=== PATIENT | male | born 1950 | race Caucasian/White ===

== ENCOUNTER → 2017-05-02 | Day surgery (SDC) | payer MEDICARE ==
[~2017-05-02] MED LIST: Bupivacaine PF 0.5% 30 ML VIAL ONE; CEFAZOLIN 1 GM VIAL ONE; CEFAZOLIN/Water 2 GM/20 ML SYRINGE ONE; Dexamethasone 20 MG/5 ML VIAL ONE; Fentanyl 100 MCG/2 ML VIAL ONE; Ketorolac Tromethamine 30 MG/ML VIAL ONE; Lidocaine 1% PF 5 ML VIAL ONE; Metoclopramide HCl 10 MG/2 ML VIAL ONE; Ondansetron HCl/PF 4 MG/2 ML Vial ONE; Propofol 200 MG/20 ML VIAL ONE; Sterile Water 10 ML VIAL ONE; diphenhydrAMINE 50 MG/ML VIAL ONE; ePHEDrine/0.9% NaCl/PF SYRINGE 50 mg/10 ml ONE
--- NOTE | 2017-05-02 14:47 | HP ---
PREOPERATIVE DIAGNOSIS: Injuries of left distal tip thumb amputation, traumatic. HISTORY OF PRESENT ILLNESS: Mr. 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 The patient was consulted and was in [place] and was told to come in today to fix surgery for revision of his amputation and completion of closure. PAST MEDICAL HISTORY: Diabetes, hyperlipidemia, hypertension, depression. PAST SURGICAL HISTORY: Prostatectomy. ALLERGIES: No known drug allergies. MEDICATIONS: Include lisinopril, metformin, Prozac, Victoza and atorvastatin. SOCIAL HISTORY: Nonsmoker and nondrinker. 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 REVIEW OF SYSTEMS: Negative for 10-point exam except for above. PHYSICAL EXAMINATION: VITAL SIGNS: Afebrile, stable this morning. GENERAL: Alert and oriented male, in no acute distress, resting comfortably in bed. EXTREMITIES: Left upper extremity, he has got a laceration over his finger. Pictures of the wound show a distal tip avulsion with nailbed avulsed with exposed distal phalanx consistent with a traumatic amputation, also distal tip amputation of his left long finger. The patient is neurovascularly intact otherwise. Dressings in place. A 2+ radial pulse. Radiology of his fingers showed comminuted distal phalanx fracture of the thumb. No other fractures noted. IMPRESSION: Left thumb traumatic amputation. ASSESSMENT AND PLAN: Patient will be taken to the OR today. He was made n.p.o. overnight. The patient will be taken for revision of amputation and closure. I discussed the risks of potential nail deformities, discussed the risk of potential and risk of infection because of diabetes. The patient is under control. I discussed the risk of possible neuromas and need for possible revision of amputation. The patient understands the risks and benefits and elects to proceed. LAUREL
--- NOTE | 2017-05-02 21:43 | OP ---
DATE OF PROCEDURE: 05/02/2017 PREOPERATIVE DIAGNOSIS: Left thumb distal tip amputation, traumatic. POSTOPERATIVE DIAGNOSIS: Left thumb distal tip amputation, traumatic. PROCEDURE PERFORMED: Left revision traumatic amputation of thumb. STAFF: Kavon Andrea M.D. HIDE HOUSE SUPERVISOR: None. ANESTHESIA: [place], the patient received LMA. ESTIMATED BLOOD LOSS: 25 mL TOURNIQUET TIME: The patient had a finger tourniquet for approximately 10 minutes. ANTIBIOTICS: Ancef 2 gram. IMPLANTS: None. COMPLICATIONS: None. The patient also received 9 mL of Marcaine 0.25% plain digital block. HISTORY OF PRESENT ILLNESS: Mr. 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 The patient understood having a previous amputation of his long finger. The risks and benefits of the surgery to include pain, scar, bleeding, infection, nail deformity, requiring revision surgery, need for revision amputation, continued pain, hypersensitivity of neuroma, need for further shortening of the limb, decreased range of motion. The patient understood all these risks and benefits , he elected to proceed. PROCEDURE IN DETAIL: After timeout was performed, the patient's left upper extremity as the operative site, based on sight, consents and markings, the patient's left upper extremity was prepped and draped in sterile fashion with Betadine. After Betadine prep, we washed the fluid off to find the distal tip of the thumb. I did not feel that I had a sufficient flap to flip over. I also was concerned about the nail matrix, therefore, I cleaned underneath the nail bed, made a U-shaped incision to come down on the nail matrix, I could try to clean the entirety of the nail matrix also rongeured the bone back obliquely from dorsal to anterior and dorsal to volar to help with the flap. I was able to get mainly just some subcutaneous fat and skin to cover over after I washed a liter of fluid through to remove all the gross debris, took down my finger tourniquet. I then closed with 3-0 chromic #5 single stitches to oppose the soft tissues. We then injected 9 mL of Marcaine for digital block, washed and put on a soft tissue dressing. The patient will remove the dressing in 2-3 days. Follow up with me in a week. The patient was given narcotics for pain relief. The patient will not soak his wound, but just keep it clean. LAUREL
== END ==
LOC: SDC 08:03
PROVIDERS: ATTEND Orthopaedic Surgery
PROC: 0HBQXZZ Excision of Finger Nail, External Approach (ICD-10-PCS; principal; 2017-05-02)
PROC: 0PBS0ZZ Excision of Left Thumb Phalanx, Open Approach (ICD-10-PCS; 2017-05-02)
DX: S68.022A Partial traumatic metacarpophalangeal amputation of left thumb, initial encounter (principal); E11.9 Type 2 diabetes mellitus without complications; E78.5 Hyperlipidemia, unspecified; I10 Essential (primary) hypertension; F32.9 Major depressive disorder, single episode, unspecified; Z79.899 Other long term (current) drug therapy; Z90.79 Acquired absence of other genital organ(s)
CPT/HCPCS: 96374; A4216; J0690; J1100; J1200; J1885; J2001; J2405; J2704; J2765; J3010; S0020

== ENCOUNTER 2020-02-25 12:08 | Inpatient (IN) | payer MEDICARE, OTHER ==
[2020-02-25] MEDS ORDERED: Ondansetron PF 4 MG/2 ML Vial IVP PRN (12:41)
[2020-02-25] MEDS ORDERED: Dextrose 5% in Water 1,000 ML IV PRN (12:41)
[2020-02-25] MEDS ORDERED: Dextrose 50% Abboject 50 ML SYRINGE SLOW IVP PRN (12:41)
[2020-02-25] MEDS ORDERED: Rib Fracture Protocol PO SCH (12:45)
[2020-02-25 13:20] LABS: Troponin I Less than 0.010 ng/mL (< 0.028)
--- NOTE | 2020-02-25 14:08 | HP ---
REFERRED BY: Emergency Department. CRITICAL CARE/TRAUMA ATTENDING: Dr. Amandeep Stevenson. PRIMARY CARE PHYSICIAN: MT Bailey out of [place]. HISTORY OF PRESENT ILLNESS: Mr. Eaton is a 69-year-old male presented to our facility as a level 1 trauma activation, transferred from [facility]. At approximately 8 o'clock today, he was thrown from a horse, landing on his side. Possibly brief loss of consciousness, had pain to his back, his left side, left flank. He was found to have left rib fractures. Small left pneumothorax, possible T8 fracture and left adrenal gland stranding, concern for hematoma or small retroperitoneal bleed. The patient was hypotensive at the outlying facility with initial blood pressure of 76/42, heart rate was 63, saturating 95% on room air. Therefore, trauma activation was called. The patient was placed in [facility], given 1 unit of PRBCs and transferred here. Upon arrival, the patient was seen by Dr. Stevenson, ER, and myself. He is awake, alert, stable blood pressure. Complains of left-sided pain only. No respiratory distress. The patient states that he might have passed out. He has not been sick lately. No fever, no cough, no congestion. He did report some vomiting three days ago. He said this has been ongoing occasionally for many months and was not abnormal. He has no sick contacts. He has no abdominal pain. He has no current nausea or vomiting. Does have some back pain. He moves and feels all of his extremities. His GCS is 15. ABC's are intact. REVIEW OF SYSTEMS: Pertinent positive and negative per the HPI, otherwise regarded as negative. PAST MEDICAL HISTORY: Significant for prostate cancer, status post prostatectomy, as well as diabetes, possibly hypertension, and anxiety. PAST SURGICAL HISTORY: He has had his left thumb partially removed. He has also had a prostatectomy. MEDICATIONS: 1. Lisinopril 10 mg daily. 2. Metformin 1000 mg daily. 3. Prozac 10 mg daily. 4. Atorvastatin 20 mg daily. 5. Aspirin 81 mg daily. 6. Victoza 2-Bryce subcu. ALLERGIES: NO KNOWN DRUG ALLERGIES. SOCIAL HISTORY: The patient is , lives in [place]. He is a lifelong non smoker. Occasionally drinks very rarely. No illicit drug use. FAMILY HISTORY: Significant for heart disease on his father's side. PHYSICAL EXAMINATION: VITAL SIGNS: Today, blood pressure 117/68, heart rate is 74, regular, saturating 100% on room air, breathing 16 times per minute. Temperature is pending at our facility. GENERAL: A 69-year-old male, lying supine, slight distress secondary to pain. HEENT: Normocephalic, atraumatic. Trachea is midline. No JVD is appreciated. RESPIRATORY: Equal rise and fall. Does have some tenderness and a little crepitus to the left chest, but lung sounds are present throughout. CARDIOVASCULAR: Regular rate and rhythm. No murmurs are appreciated. No edema. Strong pulses. ABDOMEN: Soft and nontender. Pelvis is stable. MUSCULOSKELETAL: He moves all of his extremities well. He has strong pulses. NEUROLOGIC: Alert and oriented to person, place, time, and event. GCS is 15. BACK: The patient does have some tenderness to the thoracic spine on palpation without any step-offs. No erythema. SKIN: Warm and dry. PSYCH: Normal mood and affect. DIAGNOSTIC CRITERIA: Today, laboratory data from outside facility shows a white blood cell count of 11.6, platelets are 366. Hemoglobin and hematocrit 15.2 and 45.7 respectively. His INR is 1.0, PT is 12.8. Chemistry; sodium is 142, potassium 3.9, chloride is 103, CO2 is 26, BUN is 18, creatinine 1.48, glucose is 169, calcium 9.3, bilirubin is 0.5. AST and ALT 43 and 67 respectively. Alkaline phosphatase is 58. He had a CT of the head that was negative. CT C-spine, spondylolisthesis without acute abnormality. CT chest, abdomen, and pelvis showed left rib fractures 5 through 7, a small left apical pneumothorax, possibly loss of height of T8, unknown if this is acute. A left adrenal gland contusion versus stranding around the same with small possible retroperitoneal hematoma. Chest x-ray here demonstrates no significant pneumothorax on chest x-ray. His FAST exam at the bedside was negative, actually did have lung slide bilaterally even. An EKG taken at 12:23, rate of 76, sinus rhythm, normal axis, no ectopy, no ST elevation. QTc is 463. Intervals are within normal limits. No STEMI. The EKG was obtained. ASSESSMENT: 1. Left rib fractures 5 through 7. 2. Hypertension with unknown etiology. 3. Left apical pneumothorax. 4. T8 possible acute versus chronic abnormality. 5. Left adrenal gland injury versus a small retroperitoneal hematoma. MEDICAL DECISION MAKING: This 69-year-old male with no known cardiac disease. Did have hypotension post trauma. There is no clear evidence of acute blood loss anemia. His hemoglobin is 15. There is no outward bleeding. He has a small amount of blood, possibly in his abdomen, but nothing large. FAST exam is negative. Of note, the CT of the abdomen was actually an hour and a half after the injury. His lowest heart rate was 49 that was documented and he was hypotensive. There could be a vasovagal response versus cardiac or rhythmogenic. We will need further investigation. However, he is hemodynamically stable at this time. PLAN: We will admit the patient to the telemetry sanches. We will obtain an EKG. Troponin has been ordered now and we will trend this. Obtain cardiac echocardiogram. Obtain cortisol level. Check UA for renal injury/hematuria. Repeat chest x-ray in 6 hours for expansion of his pneumothorax. Rib fracture protocol. Repeat chest x-ray in the morning. Point of care glucose and sliding scale insulin. Repeat labs in the morning. Trauma bowel regimen. Diet will be a carb controlled diet. Access of peripheral IVs. Full code. Prophylaxis will be Pepcid and SCDs for tonight. We can actually encourage ambulation with assistance. We will monitor hemodynamics. Disposition is the telemetry sanches. I have updated the patient at the bedside and answered all questions. There is no family to update. This was coordinated with the Trauma team and Emergency Department team. This plan can be updated as needed. Job ID: [id number] [facility]
[2020-02-25] MEDS ORDERED: Morphine 2 MG/ML VIAL SLOW IVP PRN (14:17)
[2020-02-25] MEDS ORDERED: Cyclobenzaprine 10 MG TAB PO PRN (14:30)
[2020-02-25 14:43] VITALS: BMI 36.9
[2020-02-25] MEDS ORDERED: Gabapentin 300 MG CAP PO SCH (15:00)
[2020-02-25] MEDS ORDERED: Ibuprofen 600 MG TAB PO SCH (15:15)
--- NOTE | 2020-02-25 15:20 | RAD ---
EXAM: CHEST ONE VIEW: 02/25/20 HISTORY: Injury from trauma. Evidence for a small amount of subcutaneous emphysema. Evidence for minimally displaced left 7th rib fracture. There is a small amount of low attenuation density adjacent to the left mediastinal margin probably a very small amount of pneumothorax. There was a small left sided pneumothorax seen on prior chest CT scan. Right lung is clear. IMPRESSION: Left rib fracture with tiny subcutaneous emphysema. Probable very tiny left sided pneumothorax. Tala nued short term follow-up. POS: OFF
[2020-02-25] MEDS: Gabapentin 100 MG CAP PO SCH ×2 (15:33→20:54)
[2020-02-25] MEDS: traMADol HCl 50 MG TAB PO SCH (17:28)
[2020-02-25] MEDS: Acetaminophen 500 MG TAB PO SCH (17:28)
[2020-02-25 17:46] LABS: Bacteria/HPF None Seen HPF (None Seen); Bilirubin Negative (Negative); Clarity Clear (Clear); Glucose, Urine (Dipstick) Normal (Negative); Ketone, Urine Trace mg/dL (Negative); Leukocyte 25 Leu/uL (Negative); Mucous/LPF 1+ LPF (<2+); Nitrite Negative (Negative); Protein, Urine (Dipstick) 20 mg/dL (Neg-Trace); Specific Gravity, Urine 1.049 (1.002-1.036); Squamous Epithelial 0-3 HPF (0-3); Urobilinogen Normal mg/dL (Less than 2); pH, Urine 5.5 (5.0-9.0)
[2020-02-25 17:48] LABS: Blood, Urine Trace (Negative)
[2020-02-25] MEDS ORDERED: Acetaminophen 650 MG Suppository PR SCH (18:00)
[2020-02-25] MEDS ORDERED: traMADol HCl 50 MG TAB PO SCH (18:00)
[2020-02-25] MEDS ORDERED: Ketorolac Tromethamine 30 MG/ML VIAL IVP SCH ×2 (18:00)
[2020-02-25] MEDS ORDERED: Ibuprofen 800 MG TAB PO SCH (18:00)
--- NOTE | 2020-02-25 18:06 | RAD ---
XR Chest 1 View Portable History: Pneumothorax Comparison: Radiograph same day Findings: Trace anterior apical left pneumothorax with small volume left pleural fluid. Right lung is clear. Heart size is normal. RIb fractures are no further displaced. Impression: Faint left anterior pneumothorax with small left pleural effusion.
[2020-02-25 18:59] LABS: Troponin I Less than 0.010 ng/mL (< 0.028)
[2020-02-25] MEDS: Famotidine 20 MG TAB PO SCH (20:53)
[2020-02-25] MEDS: Ibuprofen 600 MG TAB PO SCH (20:54)
[2020-02-25] MEDS: HumaLOG 300 UNITS/3 ML VIAL SC PRN (20:58)
[2020-02-26] MEDS: traMADol HCl 50 MG TAB PO SCH ×4 (00:27→17:52)
[2020-02-26] MEDS: Acetaminophen 500 MG TAB PO SCH ×3 (00:27→10:59)
[2020-02-26 04:32] LABS: #Eosinphils 0.1 thou/uL (0.0-0.7); #Lymphocytes 2.1 thou/uL (1.20-3.40); #Monocytes 1.6 thou/uL (0.11-0.59); #Neutrophils 7.8 thou/uL (1.40-6.50); %Basophils 0.4 % (0.0-1.0); %Lymphocytes 17.7 % (21.0-51.0); %Monocytes 13.7 % (0.0-10.0); %Neutrophils 67.3 % (42.0-75.0); Hemoglobin 14.1 g/dL (14.0-18.0); Mean Corpuscular HGB CONC 32.2 g/dL (32.0-36.0); Mean Corpuscular Hemoglobin 29.1 pg (27.0-31.0); Mean Corpuscular Volume 90.3 fL (78.0-98.0); Mean Platelet Volume 8.3 fL (7.4-10.4); Platelet Count 248 thou/uL (130-400); RBC Distribution Width 15.1 % (11.5-14.5); Red Blood Cell (RBC) Count 4.86 mill/uL (4.70-6.10); White Blood Cell (WBC) Count 11.6 thou/uL (4.8-10.8)
[2020-02-26 04:51] LABS: Anion Gap 14 mmol/L (10-20); BUN (Urea Nitrogen) 16 mg/dL (8.4-25.7); Calc. Creatinine Clearance 106 mL/min (70-130); Calcium 8.4 mg/dL (7.8-10.44); Carbon Dioxide 22 mmol/L (23-31); Chloride 105 mmol/L (98-107); Estimated GFR-MDRD 68; Glucose 127 mg/dL (80-115); Potassium 4.3 mmol/L (3.5-5.1); Sodium 137 mmol/L (136-145)
[2020-02-26] MEDS: Ibuprofen 600 MG TAB PO SCH ×3 (05:18→21:10)
--- NOTE | 2020-02-26 08:05 | RAD ---
CHEST 1 VIEW PORTABLE: HISTORY: Pneumothorax followup. COMPARISON: 02/25/2020. FINDINGS: Possible tiny medial left apical pneumothorax. Left costophrenic angle blunting. Evidence for left rib fractures. Less inspiration than on the prior study. IMPRESSION: Probable very small pneumothorax involving the medial left apex. Less inspiration than on the prior study. Minimal blunting of the left costophrenic angle and evidence for left rib fractures. POS: OFF
[2020-02-26] MEDS: Famotidine 20 MG TAB PO SCH ×2 (08:48→20:48)
[2020-02-26] MEDS: Gabapentin 100 MG CAP PO SCH ×3 (08:48→20:48)
[2020-02-26] MEDS: HumaLOG 300 UNITS/3 ML VIAL SC PRN ×2 (11:03→21:11)
[2020-02-26 12:23] LABS: SARS-CoV-2 MS2 Positive; SARS-CoV-2 N Gene Negative; SARS-CoV-2 S Gene Negative; SARS-CoV-2 by NAA Not Detected (NotDetected); SARS-CoV-2 orf1ab Negative
[2020-02-26] MEDS: Cyclobenzaprine 10 MG TAB PO PRN (12:32)
[2020-02-26] MEDS: HYDROcodone/Acetaminophen 10/325 mg Tablet PO SCH ×3 (14:20→20:47)
--- NOTE | 2020-02-26 14:58 | PRG ---
DATE OF SERVICE: 02/26/2020 SUBJECTIVE: Mr. Eaton is a 69-year-old male admitted as a level 1 trauma activation yesterday with mild hypotension after being thrown from a horse, multiple left- sided rib fractures, small pneumothorax, concern for small retroperitoneal hematoma. The patient has remained hemodynamically stable. Pain was controlled overnight. Repeat chest x-ray shows very small pneumothorax, not clinically significant at this time. The patient has tolerated diet, spontaneously voided, has not had a bowel movement. On sitting up to the edge of bed, the patient did start having some right-sided hip pain. Did report some back pain. We reviewed CT findings. He does have the T8 possible compression fracture. Therefore, I have discussed the case with Neurosurgery, who is going to see the patient, and we will place in a TLSO for the time being. The patient's hemoglobin has remained stable. I reviewed the telemetry overnight. The patient remained in sinus rhythm under 100 beats per minute. No ectopy was reported by the final operations technician and on my review. Troponins were negative and EF of 50% to 55% with possibly diastolic dysfunction. OBJECTIVE: VITAL SIGNS: Temperature is 97.5, blood pressure is 155/68, heart rate is 78, respiratory rate is 14, saturating 94% on room air. GENERAL: A 69-year-old male, sitting up, in no acute distress, aside from mild traumatic pain. HEENT: Normocephalic and atraumatic. Trachea is midline. RESPIRATORY: Equal rise and fall. Bilateral breath sounds are clear. Does have some subcu air noted on the left chest. CARDIOVASCULAR: Regular rate and rhythm. No murmurs appreciated. No edema. Strong pulses. ABDOMEN: Soft and nontender. Pelvis is stable. MUSCULOSKELETAL: He is able to move all of his extremities. No gross deficits. SKIN: Warm and dry. NEUROLOGIC: Alert and oriented in person, place, time and event. GCS is 15. DIAGNOSTIC DATA: Today, sodium is 135, potassium is 4.3, chloride is 105, BUN is 16, creatinine is 1.08, glucose is 127, calcium is 8.4. His troponin was negative x2 yesterday. White blood cell count is 11.6, platelets are 248, hemoglobin and hematocrit 14.1 and 43.8 respectively. Urine demonstrated it was clear, yellow with trace blood, ketones, some red blood cell, white blood cell, and small leukocyte esterase. There is yellow urine today. Repeat chest x-ray today shows these left-sided rib fractures and small apical pneumothorax. Small left hemothorax. An echocardiogram from yesterday shows an EF of 50% to 55%, possibly diastolic dysfunction. ASSESSMENT AND PLAN: 1. Left rib fractures 5 through 7. 2. Left apical pneumothorax, improving. 3. Hypotension seems to be resolved. 4. T8 possibly acute compression fracture. TLSO brace ordered and neurosurgery consult. 5. Acute traumatic pain. 6. Left hemopneumothorax. PLAN: 1. We will transfer the patient out of the telemetry unit to the surgery sanches. 2. Obtain dedicated films of the right hip. 3. Neurosurgery consult and TLSO brace ordered. 4. Repeat chest x-ray tomorrow. 5. Pain control ongoing. 6. Encourage IS and ambulation. 7. We will continue to monitor blood pressure. 8. Follow with Neurosurgery as needed. 9. Continue all other supportive care. I have updated the patient and patient's at the bedside, and I have discussed the case with the bedside RN. Job ID: [id number] [facility]
[2020-02-26] MEDS ORDERED: Prevnar 13-Val Conj/PF 0.5 ML SYRINGE IM ONE (15:15)
--- NOTE | 2020-02-26 16:08 | RAD ---
XR Hip Rt 2-3 View History: Trauma. Hip pain Comparison: CT examination prior day Findings: Mild widening of the pubic symphysis. Obturator rings. Intact. The right femoral head and n charis are intact. Impression: Mild widening pubic symphysis not well seen on the recent CT examination although there w as extensive motion artifact. If clinically warranted, MRI of the pelvis may be beneficial.
--- NOTE | 2020-02-26 18:41 | CON ---
DATE OF CONSULTATION: 02/26/2020 HISTORY OF PRESENT ILLNESS: The patient is a 69-year-old male, who was admitted by the Trauma Service on 02/25/2020, after being bucked off a horse. He was found to have multiple left-sided rib fractures as well as suffered a period of hypotension, a small pneumothorax. He has been monitored on the telemetry unit and had improved with regard to his hypotension. He also had questionable T8 compression fracture. When he began to mobilize, being complaining of some increased back pain. Neurosurgery was consulted for evaluation of this compression deformity. I have reviewed the CT. There is a mild superior endplate fracture along the anterior aspect of the T8, but there is no significant retropulsion or evidence of unstable spinal injury. I visited with the patient at the bedside. He is awake, alert, in no acute distress. He is moving all extremities without difficulty. He has no focal neurologic deficits. He is diffusely tender over the mid and low back, but he is not complaining of any particular point tenderness over the mid thoracic spine. PAST MEDICAL HISTORY: Prostate cancer, diabetes, hypertension, anxiety. PAST SURGICAL HISTORY: Prostatectomy, left thumb surgery. FAMILY HISTORY: Noncontributory. SOCIAL HISTORY: He lives at home. He does not smoke, drink, or use any drugs. REVIEW OF SYSTEMS: Per HPI. PHYSICAL EXAMINATION: VITAL SIGNS: Stable. HEENT: Head, normocephalic and atraumatic. Eyes, PERRLA. Extraocular movements intact. ENT; pink, intact, and moist. NECK: Nontender. Free active range of motion. No meningismus or nuchal rigidity. CARDIAC: Regular rate and rhythm. PULMONARY: He has some tenderness diffusely along the left side of the chest where he has multiple rib fractures. He has symmetric chest expansion. Does not appear to have any dyspnea at this time. MUSCULOSKELETAL: No obvious deformities. Free active range of motion of all extremities. No focal motor weakness. NEUROLOGIC: A and O x4. GCS 15. No focal neurologic deficits. BACK: There is some tenderness diffusely along the thoracic and lumbar spine. No areas of point tenderness. ASSESSMENT AND PLAN: This is a 69-year-old male with multiple left-sided rib fractures and a questionable T8 compression deformity after he was bucked off a horse. The patient has had some increased back pain as he began to mobilize. This seems lower along the lumbar spine in the right hip, but he is somewhat mildly tender over the thoracic spine as well. The T8 deformity is age indeterminate, but considering his acute event, we will treat this with TLSO bracing. I have ordered the brace, which can be worn for out of bed activities. He can take the brace off in bed and for showering. I will plan to arrange followup with repeat set of imaging in approximately 4 weeks. Job ID: [id number]
[2020-02-26] MEDS: Enoxaparin Sodium 30 MG/0.3 ML SYRINGE SC SCH (20:46)
[2020-02-27] MEDS: HYDROcodone/Acetaminophen 10/325 mg Tablet PO SCH ×2 (00:17→04:35)
[2020-02-27] MEDS: traMADol HCl 50 MG TAB PO SCH ×4 (00:17→18:32)
[2020-02-27] MEDS: Cyclobenzaprine 10 MG TAB PO PRN ×3 (05:03→22:42)
[2020-02-27] MEDS: Ibuprofen 600 MG TAB PO SCH ×3 (05:04→22:42)
[2020-02-27] MEDS: HumaLOG 300 UNITS/3 ML VIAL SC PRN ×2 (06:50→18:33)
--- NOTE | 2020-02-27 08:17 | RAD ---
Exam: Chest one view HISTORY:Pneumothorax Comparison: 02/26/2020 FINDINGS: Cardiac silhouette: Normal Aorta: Unremarkable Pulmonary vessels: Normal Costophrenic angles: Blunting of the left costophrenic angle likely due to small effusion. LUNGS: Parenchymal changes in the left lung base. Pneumothorax: Questionable tiny apical left-sided pneumothorax Osseous abnormalities: Left rib fractures. IMPRESSION: 1. Questionable tiny apical left-sided pneumothorax 2. Pleural and parenchymal changes in the left lung base.
[2020-02-27] MEDS ORDERED: Lorazepam 2 MG/ML VIAL ONE (10:11)
[2020-02-27] MEDS ORDERED: Lorazepam 2 MG/ML VIAL SLOW IVP SCH (10:30)
--- NOTE | 2020-02-27 10:57 | MRI ---
Exam: Thoracic spine MRI without contrast HISTORY: Pain. FINDINGS: Patient refused axial T1-weighted images Appropriate T1 marrow signal intensity of the thoracic vertebra. Thoracic spine vertebral body height s are maintained from the T1-T7 and from T9 through T12. Mild chronic superior endplate deformity at T8. No significant STIR hyperintensity suggest edema or acute fracture Appropriate signal intensity visualized paraspinal muscles. Consolidation in both lung parenchymal echoes and atelectasis, aspiration or pneumonia Visualized solid organs of appropriate signal intensity The thoracic cord has a normal size and signal intensity. No cord expansion, cord malacia or abnormal signal intensity of the thoracic cord T6-T7: Minimal left paracentral disc herniation. No significant central canal stenosis T7-T8 central disc herniation which flattens the thecal sac. Mild deformity the left hemicord. No cor d signal abnormality T10-T11: No posterior disc abnormality. However, there is ligamentum flavum thickening and facet hype rtrophy with mild central canal stenosis. The neural foramina are patent throughout the thoracic spine IMPRESSION: 1. No significant central canal stenosis or significant neural foraminal narrowing 2. Remote mild superior endplate injury at T8.
[2020-02-27] MEDS: Enoxaparin Sodium 30 MG/0.3 ML SYRINGE SC SCH ×2 (11:16→20:09)
[2020-02-27] MEDS: Gabapentin 300 MG CAP PO SCH ×3 (11:17→20:09)
[2020-02-27] MEDS: Famotidine 20 MG TAB PO SCH ×2 (12:13→20:09)
--- NOTE | 2020-02-27 16:00 | PRG ---
DATE OF SERVICE: 02/27/2020 SUBJECTIVE: Mr. Eaton is a 69-year-old male, postinjury day #2, status post fall from a horse. The patient was seen in the surgery sanches now. He has remained hemodynamically stable overnight. He did have difficulty with pain on ambulation, therefore an x-ray showed possible widening of the pubic symphysis. MRI of the pelvis was ordered. A thoracic spine MRI was added to the same. The patient underwent the MRI of the spine today; however, was too uncomfortable lay still for the pelvis. He was seen at the bedside. The patient is somewhat sedated as being given 1 mg Ativan for his MRI today, states the pain is still fairly significant when he stands up. Discussed with PT, he could barely stand and walk. He was in agony both of his left thorax and his right hip. Chest x-ray still demonstrates a very small apical left pneumothorax. OBJECTIVE: VITAL SIGNS: Today, temperature is 97.7, blood pressure 119/75, heart rate is 96, breathing 16 times per minute, and 96% on 2 L of oxygen nasal cannula. GENERAL: A 69-year-old male, lying in bed, in slight distress secondary to pain. HEENT: Normocephalic and atraumatic. Trachea is midline. RESPIRATORY: Equal rise and fall. Bilateral breath sounds clear to auscultation. Does have some tenderness to the left chest. ABDOMEN: Soft and nontender. No masses, guarding, or rigidity. CARDIOVASCULAR: Regular rate and rhythm. PELVIS: Stable. Does complain of some pain to the right hip. MUSCULOSKELETAL: The patient moves all of his extremities well. He has slight tenderness to the palpation of the back; however, no step-offs are noted. NEUROLOGIC: Alert and oriented to person, place, time, and event. PSYCHIATRIC: Normal mood and affect. DIAGNOSTIC STUDIES: Today: Glucose is 148. MRI of the thoracic spine shows no canal narrowing, does have a remote mild superior endplate injury at T8. Chest x-ray today shows the left pneumothorax, multiple rib fractures, some atelectasis is appreciated. ASSESSMENT AND PLAN: 1. Left rib fractures 5 through 7. 2. Small left apical pneumothorax, that is improving. 3. Hypertension, has been completely resolved. 4. T8 endplate injury remote by MRI today. 5. Acute traumatic pain. 6. Possibly widening of the pubic symphysis, unable to complete MRI. PLAN: 1. We will continue pain regimen. 2. Change tramadol to 100 mg q.6 from 50. 3. Increase gabapentin to 300 mg t.i.d. 4. Try to stay away from [place]. 5. TLSO brace per Neurosurgery as needed for pain only. 6. PT had discussed with them. Try to ambulate the patient, very difficult with time. 7. Encouraged and discussed IS with the patient and the patient's family at the bedside. 8. Continue rib fracture protocol. 9. Continue bowel regimen. 10. Will repeat labs in the morning. 11. Continue all other supportive care. The patient was seen by Dr. Edgardo Hobbs. I updated the patient and the patient's family at the bedside and answered all questions. Job ID: [id number]
[2020-02-27] MEDS: cloNIDine 0.1 MG TAB PO SCH (20:07)
[2020-02-28] MEDS: traMADol HCl 50 MG TAB PO SCH ×5 (00:24→23:11)
--- NOTE | 2020-02-28 01:42 | PRG ---
DATE OF SERVICE: 02/27/2020 SUBJECTIVE: The patient was seen this evening during rounds. He was sitting up in bed, resting comfortably and asleep with no signs of acute distress. Nursing reported the patient ambulated with a walker in the hallway this evening. Reports pain is better controlled. OBJECTIVE: VITAL SIGNS: Temperature 98.7, pulse 100, respirations 18, oxygen saturation 92% on room air, and blood pressure 1107/66. GENERAL: Well-appearing elderly male, sitting up in bed, resting comfortably and asleep with no signs of acute distress. PULMONARY: Equal chest rise and fall. No signs of acute respiratory distress. ASSESSMENT: 1. Status post ejected from horse. 2. Left ribs 5 through 7 fractures. 3. Left pneumothorax. 4. T8 endplate injury. 5. Abdominal free fluid. 6. Acute kidney injury, resolved. 7. History of prostate cancer, status post prostatectomy. 8. Diabetes. 9. Hypertension. 10. Anxiety. PLAN: 1. Continue current diet and pain regimen. 2. Continue physical and occupational therapy. 3. The patient is improving with Pain Management and is ready for discharge at this time to acute rehab facility. Job ID: [id number]
[2020-02-28 05:04] LABS: #Basophils 0.1 thou/uL (0.0-0.2); #Eosinphils 0.3 thou/uL (0.0-0.7); #Lymphocytes 1.6 thou/uL (1.20-3.40); #Monocytes 1.3 thou/uL (0.11-0.59); #Neutrophils 6.6 thou/uL (1.40-6.50); %Basophils 0.5 % (0.0-1.0); %Eosinophils 3.1 % (0.0-10.0); %Neutrophils 67.4 % (42.0-75.0); Hemoglobin 13.7 g/dL (14.0-18.0); Mean Corpuscular HGB CONC 32.1 g/dL (32.0-36.0); Mean Corpuscular Volume 90.5 fL (78.0-98.0); Mean Platelet Volume 8.2 fL (7.4-10.4); Platelet Count 248 thou/uL (130-400); RBC Distribution Width 14.9 % (11.5-14.5); Red Blood Cell (RBC) Count 4.74 mill/uL (4.70-6.10); White Blood Cell (WBC) Count 9.8 thou/uL (4.8-10.8)
[2020-02-28 05:29] LABS: Anion Gap 13 mmol/L (10-20); BUN (Urea Nitrogen) 14 mg/dL (8.4-25.7); Calc. Creatinine Clearance 111 mL/min (70-130); Calcium 8.4 mg/dL (7.8-10.44); Carbon Dioxide 26 mmol/L (23-31); Chloride 102 mmol/L (98-107); Estimated GFR-MDRD 71; Glucose 150 mg/dL (80-115); Potassium 4.3 mmol/L (3.5-5.1); Sodium 137 mmol/L (136-145)
[2020-02-28] MEDS: HumaLOG 300 UNITS/3 ML VIAL SC PRN ×3 (05:33→17:12)
[2020-02-28] MEDS: Ibuprofen 600 MG TAB PO SCH ×3 (05:33→21:16)
[2020-02-28] MEDS: cloNIDine 0.1 MG TAB PO SCH ×2 (08:25→21:16)
[2020-02-28] MEDS: Gabapentin 300 MG CAP PO SCH (08:29)
[2020-02-28] MEDS: Cyclobenzaprine 10 MG TAB PO PRN ×2 (08:29→18:29)
[2020-02-28] MEDS: Famotidine 20 MG TAB PO SCH ×2 (08:30→21:16)
[2020-02-28] MEDS: Enoxaparin Sodium 30 MG/0.3 ML SYRINGE SC SCH ×2 (08:30→21:17)
[2020-02-28] MEDS: Senokot S 8.6-50 MG TAB PO SCH ×2 (09:19→21:16)
[2020-02-28] MEDS: Polyethylene Glycol 3350 17 GM Packet PO SCH (09:19)
[2020-02-28] MEDS ORDERED: oxyCODONE 5 MG TAB PO PRN (11:21)
[2020-02-28] MEDS: Acetaminophen 500 MG TAB PO SCH ×3 (12:12→23:11)
[2020-02-28] MEDS: Pregabalin 50 MG CAP PO SCH ×2 (14:25→21:17)
--- NOTE | 2020-02-28 17:22 | PRG ---
DATE OF SERVICE: SUBJECTIVE: The patient was seen during morning rounds with Dr. Hobbs. The patient was awake, alert, sitting up on the side of the bed in moderate distress due to pain. The patient reports pain only 3/10 whenever he is not deep breathing or coughing, but pain is 10/10 when he does cough. The patient had no overnight events. The patient is requiring currently 1 L nasal cannula oxygen. Off oxygen, the patient's sats anywhere from 90% to 93% after deep breathing and using his incentive spirometer. The patient is tolerating diabetic diet at this time. OBJECTIVE: VITAL SIGNS: Temperature 98.5, pulse 92, respirations 16, SpO2 of 94% on 1 L nasal cannula, blood pressure 139/85. GENERAL: Elderly male sitting up on the side of the bed, moderate distress due to pain. Well-fitting TLSO brace in place. RESPIRATORY: Good inspiratory and expiratory effort. Breath sounds are clear. No wheezing, rales, or rhonchi. CARDIAC: Regular rate, regular rhythm. ABDOMEN: Soft, nontender, nondistended. EXTREMITIES: Moves all extremities. No focal deficits. NEUROLOGIC: GCS 15. LABORATORY DATA: WBC 9.8, RBC 4.74, hemoglobin 13.7, hematocrit 42.8, platelets 248. Glucose 150, sodium 137, potassium 4.8, BUN 14, creatinine 1.04, estimated GFR 71, calcium 8.4, phosphorus 3.0, magnesium 2.0. DIAGNOSTICS: There is no new diagnostics to review today. ASSESSMENT: 1. Status post ejected from horse. 2. Left rib fractures 5 through 7. 3. Left pneumothorax, stable. 4. T8 endplate injury. 5. Acute kidney injury, resolved. 6. History of prostate cancer, status post prostatectomy; diabetes mellitus; hypertension; and anxiety. PLAN: Continue current diet and supportive care. We will add scheduled Tylenol and p.r.n. oxycodone to optimize pain control. We will also switch the patient to Lyrica instead of gabapentin. Encourage aggressive pulmonary toilet with the use of incentive spirometer every hour while awake x10 and deep coughing frequently. Increase activity. The patient has been instructed to ambulate frequently. Increase physical and occupational therapy. We will place the patient on CPAP 10 cm of water at night. A rehab screen has been placed. The patient was seen by Dr. Hobbs. The plan was discussed with the patient and family who agree. Job ID: [id number]
--- NOTE | 2020-02-29 00:54 | PRG ---
DATE OF SERVICE: 02/28/2020 SUBJECTIVE: The patient was seen this evening during rounds. He was sitting up in bed, getting ready to go to sleep. He reported pain is about the same as yesterday. He has been moving around with physical therapy. He is getting ready to be put on CPAP for the evening and he said he is willing to give it a trial, though he did not appear happy with that recommendation. OBJECTIVE: VITAL SIGNS: Temperature 98.7 pulse 91, respirations 18, oxygen saturation 95% on room air, blood pressure 127/81. GENERAL: Well-appearing elderly male, lying in bed with no signs of acute distress. PULMONARY: Equal chest rise and fall. No signs of acute respiratory distress. ASSESSMENT: 1. Status post ejected from horse. 2. Left-sided ribs 5 through 7 fracture. 3. Left-sided pneumothorax. 4. T8 endplate injury. 5. Free abdominal fluid. 6. Acute kidney injury, resolved. 7. History of prostate cancer, status post prostatectomy; diabetes; hypertension; and anxiety. PLAN: Continue current diet and pain regimen. Continue physical and occupational therapy. Continue TLSO brace. CPAP overnight. The patient is pending discharge to acute rehab facility. He is ready for discharge at this time. Job ID: [id number]
[2020-02-29 05:14] LABS: #Basophils 0.1 thou/uL (0.0-0.2); #Eosinphils 0.4 thou/uL (0.0-0.7); #Monocytes 1.3 thou/uL (0.11-0.59); #Neutrophils 5.2 thou/uL (1.40-6.50); %Basophils 0.6 % (0.0-1.0); %Eosinophils 4.9 % (0.0-10.0); %Monocytes 14.1 % (0.0-10.0); %Neutrophils 58.4 % (42.0-75.0); Hemoglobin 14.2 g/dL (14.0-18.0); Mean Corpuscular HGB CONC 30.9 g/dL (32.0-36.0); Mean Corpuscular Hemoglobin 28.2 pg (27.0-31.0); Mean Corpuscular Volume 91.3 fL (78.0-98.0); Mean Platelet Volume 8.5 fL (7.4-10.4); Platelet Count 276 thou/uL (130-400); Red Blood Cell (RBC) Count 5.02 mill/uL (4.70-6.10); White Blood Cell (WBC) Count 8.9 thou/uL (4.8-10.8)
[2020-02-29] MEDS: Acetaminophen 500 MG TAB PO SCH ×4 (05:24→23:39)
[2020-02-29] MEDS: Ibuprofen 600 MG TAB PO SCH ×3 (05:24→20:58)
[2020-02-29] MEDS: traMADol HCl 50 MG TAB PO SCH ×4 (05:24→23:39)
[2020-02-29 05:45] LABS: Anion Gap 15 mmol/L (10-20); BUN (Urea Nitrogen) 18 mg/dL (8.4-25.7); Calc. Creatinine Clearance 103 mL/min (70-130); Calcium 8.8 mg/dL (7.8-10.44); Carbon Dioxide 25 mmol/L (23-31); Chloride 100 mmol/L (98-107); Estimated GFR-MDRD 67; Glucose 128 mg/dL (80-115); Magnesium 2.1 mg/dL (1.6-2.6); Phosphorus 3.9 mg/dL (2.3-4.7); Sodium 135 mmol/L (136-145)
[2020-02-29] MEDS: Pregabalin 50 MG CAP PO SCH ×3 (09:39→20:57)
[2020-02-29] MEDS: Senokot S 8.6-50 MG TAB PO SCH ×2 (09:39→20:57)
[2020-02-29] MEDS: Polyethylene Glycol 3350 17 GM Packet PO SCH (09:39)
[2020-02-29] MEDS: cloNIDine 0.1 MG TAB PO SCH ×2 (09:40→20:56)
[2020-02-29] MEDS: Famotidine 20 MG TAB PO SCH ×2 (09:40→20:56)
[2020-02-29] MEDS: Cyclobenzaprine 10 MG TAB PO PRN (09:40)
[2020-02-29] MEDS: Enoxaparin Sodium 30 MG/0.3 ML SYRINGE SC SCH ×2 (09:41→20:56)
--- NOTE | 2020-02-29 18:59 | PRG ---
DATE OF SERVICE: 02/29/2020 SUBJECTIVE: The patient was seen during morning rounds with Dr. Hobbs. The patient was awake, alert, sitting up in the chair, in no acute distress. The patient is in a well-fitting TLSO brace. The patient did not have any overnight events. The patient did not want to use the CPAP last night. States that he just did not feel comfortable with it. The patient still has not had a bowel movement. The patient and family are refusing the patient having home health care, PT, or going to rehab. The patient continues to have increased pain with deep breath and coughing. The patient's SpO2 is in the low 90s on room air. The patient is only able to pull 1250 on his incentive spirometer. The patient is not able to cough deeply at this time. The patient has been instructed that he needs to ambulate frequently and cough and use his incentive spirometer at least every hour while awake. The patient was also instructed on the importance of doing this aggressive pulmonary toilet as if not, he will develop pneumonia. Family was at bedside and verbalized understanding. The patient does report feeling better than he did yesterday after making some medication changes. OBJECTIVE: VITAL SIGNS: Temperature 98.1, pulse 81, respirations 16, SpO2 of 95% on room air, blood pressure 126/85. GENERAL: Elderly male, awake, alert, sitting up in chair. RESPIRATORY: Good inspiratory and expiratory effort, bilateral breath sounds clear. CARDIAC: Regular rate and regular rhythm. EXTREMITIES: Moves all extremities, no focal deficits. NEUROLOGIC: GCS 15. LABORATORY DATA: WBC 8.9, RBC 5.02, hemoglobin 14.2, hematocrit 45.8, platelets 276. Sodium 135, potassium 5, chloride 100, BUN 18, creatinine 1.1, estimated GFR 67, glucose 128, calcium 8.8, phosphorus 3.9, magnesium 2.1. DIAGNOSTICS: No new diagnostics to review today. ASSESSMENT: 1. Status post ejected from horse. 2. Left rib fractures, 5 through 7. 3. Left pneumothorax, stable. 4. T8 endplate injury, treated with TLSO brace. 5. Acute kidney injury, resolved. 6. History of prostate cancer, status post prostatectomy, diabetes myelitis, hypertension, and anxiety. PLAN: Continue current diet and pain regimen. Continue aggressive pulmonary toilet with the use of incentive spirometer every hour while awake. Continue to have the patient move and ambulate frequently. The patient's incentive spirometer goal is to reach 2000 or before being discharged home. Also, if the patient's pain is better controlled tomorrow, he may be discharged home with family. The plan was discussed with the patient and family who agrees. Again, the patient was examined by Dr. Hobbs during morning rounds. Please add above. We will add lactulose to the patient's bowel regimen as he has not had a bowel movement. Job ID: [id number]
--- NOTE | 2020-03-01 00:34 | PRG ---
DATE OF SERVICE: 02/29/2020 SUBJECTIVE: The patient was seen this evening during rounds. He was sitting up in bed, completing a breathing treatment. He reported his pain is better controlled. He is tired as he worked a lot with Physical Therapy. He completed one big lap around the floor, had received lactulose today and had a bowel movement. Continues to work with incentive spirometer. OBJECTIVE: VITAL SIGNS: Temperature 97.9, pulse 90, respirations 16, oxygen saturation 92% on room air, and blood pressure 130/82. GENERAL: Well-appearing elderly male, sitting up in bed with no signs of acute distress. PULMONARY: Equal chest rise and fall. No signs of acute respiratory distress. ASSESSMENT: 1. Status post ejected from horse. 2. Left-sided ribs 5 through 7 fracture. 3. Left pneumothorax. 4. T8 endplate injury. 5. Abdominal free fluid. 6. Acute kidney injury, resolved. 7. History of prostate cancer status post prostatectomy, diabetes, hypertension, and anxiety. PLAN: Continue current diet and pain regimen. Continue physical and occupational therapy. Continue CPAP at night with breaks as needed. The patient is ready for discharge to rehab at this time. Job ID: [id number]
[2020-03-01] MEDS: Acetaminophen 500 MG TAB PO SCH ×2 (05:43→12:27)
[2020-03-01] MEDS: traMADol HCl 50 MG TAB PO SCH ×2 (05:43→12:27)
[2020-03-01] MEDS: Ibuprofen 600 MG TAB PO SCH ×2 (05:43→14:08)
[2020-03-01] MEDS: HumaLOG 300 UNITS/3 ML VIAL SC PRN ×3 (05:47→16:13)
[2020-03-01 07:14] LABS: Anion Gap 14 mmol/L (10-20); BUN (Urea Nitrogen) 17 mg/dL (8.4-25.7); Calc. Creatinine Clearance 113 mL/min (70-130); Calcium 8.5 mg/dL (7.8-10.44); Carbon Dioxide 26 mmol/L (23-31); Chloride 101 mmol/L (98-107); Estimated GFR-MDRD 74; Glucose 144 mg/dL (80-115); Phosphorus 3.9 mg/dL (2.3-4.7); Potassium 4.7 mmol/L (3.5-5.1); Sodium 136 mmol/L (136-145)
[2020-03-01] MEDS ORDERED: Bisacodyl 10 MG SUPP PR SCH ×2 (09:00→15:00)
[2020-03-01] MEDS ORDERED: FLUoxetine HCl 20 MG CAP PO SCH (09:00)
[2020-03-01] MEDS: Polyethylene Glycol 3350 17 GM Packet PO SCH (09:33)
[2020-03-01] MEDS: Pregabalin 50 MG CAP PO SCH ×2 (09:33→14:09)
[2020-03-01] MEDS: Senokot S 8.6-50 MG TAB PO SCH (09:33)
[2020-03-01] MEDS: Cyclobenzaprine 10 MG TAB PO PRN (09:33)
[2020-03-01] MEDS: Famotidine 20 MG TAB PO SCH (09:33)
[2020-03-01] MEDS: Enoxaparin Sodium 30 MG/0.3 ML SYRINGE SC SCH (09:34)
[2020-03-01] MEDS: cloNIDine 0.1 MG TAB PO SCH (09:34)
[2020-03-01 16:22] VITALS: BP 116/74; TEMP 98
--- NOTE | 2020-03-03 14:20 | EKG ---
Test Reason : Blood Pressure : / mmHG Vent. Rate : 076 BPM Atrial Rate : 076 BPM P-R Int : 180 ms QRS Dur : 098 ms QT Int : 412 ms P-R-T Axes : 059 041 060 degrees QTc Int : 463 ms Poor data quality, interpretation may be adversely affected Normal sinus rhythm Normal ECG Confirmed by SYLVIA CASAS MD ([id number] on 03/03/2020 2:20:23 PM Referred By: DOROTA Confirmed By:SYLVIA CASAS MD
== END 2020-03-01 16:30 | DRG 964 ==
LOC: ERS 12:08 → 2NO 12:49 → SURG A 02-26 17:10
PROVIDERS: ADMIT Surgery; ATTEND Surgery
PROC: 5A09457 Assistance with Respiratory Ventilation, 24-96 Consecutive Hours, Continuous Positive Airway Pressure (ICD-10-PCS; principal; 2020-02-28)
DX: S27.2XXA Traumatic hemopneumothorax, initial encounter (principal); S22.069A Unspecified fracture of T7-T8 vertebra, initial encounter for closed fracture; S36.892A Contusion of other intra-abdominal organs, initial encounter; S22.42XA Multiple fractures of ribs, left side, initial encounter for closed fracture; N17.9 Acute kidney failure, unspecified; Z20.828 Contact with and (suspected) exposure to other viral communicable diseases; E78.5 Hyperlipidemia, unspecified; E11.9 Type 2 diabetes mellitus without complications; F41.9 Anxiety disorder, unspecified; F32.9 Major depressive disorder, single episode, unspecified; I10 Essential (primary) hypertension; Z79.899 Other long term (current) drug therapy; Z79.84 Long term (current) use of oral hypoglycemic drugs; Z79.82 Long term (current) use of aspirin; V80.919A Animal-rider injured in unspecified transport accident, initial encounter; Z85.46 Personal history of malignant neoplasm of prostate
CPT/HCPCS: 36415; 36416; 71045; 72146; 80048; 81001; 82533; 83735; 84100; 84484; 85025; 86850; 86900; 86901; 87635; 93005; 93306; 94640; G0390; J1650; J2060; J2270; J7620; U0003

== ENCOUNTER 2021-06-30 05:51 | Inpatient (IN) | payer MEDICARE ==
[2021-06-30] MEDS ORDERED: REMDESIVIR 200 MG in Sodium Chloride 0.9% 250 ML 210 ML IV SCH (15:00)
[2021-06-30] MEDS ORDERED: Cholecalciferol 1,000 UNITS (25 MCG) TAB PO SCH (15:00)
[2021-06-30] MEDS ORDERED: Dextrose 50% Abboject 50 ML SYRINGE SLOW IVP PRN (15:03)
[2021-06-30] MEDS ORDERED: Dextrose 5% in Water 1,000 ML IV PRN (15:03)
[2021-06-30] MEDS: Guaifenesin DM 100-10/5 ML UDCUP PO SCH ×2 (16:10→21:20)
[2021-06-30] MEDS ORDERED: Famotidine 20 MG TAB PO SCH (21:00)
[2021-06-30] MEDS: Acetaminophen 325 MG TAB PO PRN (21:20)
[2021-06-30] MEDS: Enoxaparin Sodium 40 MG/0.4 ML SYRINGE SC SCH (21:21)
[2021-07-01] MEDS: Melatonin 3 MG TAB PO PRN ×2 (01:53→21:00)
[2021-07-01] MEDS: Acetaminophen 325 MG TAB PO PRN ×2 (01:53→20:59)
[2021-07-01 03:40] LABS: ALT (SGPT) 82 U/L (8-55); AST (SGOT) 71 U/L (5-34); Albumin 3.4 g/dL (3.4-4.8); Alkaline Phosphatase 52 U/L (40-110); Anion Gap 12 mmol/L (10-20); BUN (Urea Nitrogen) 18 mg/dL (8.4-25.7); Bilirubin, Total 0.5 mg/dL (0.2-1.2); CRP (Inflammatory) 2.24 mg/dL (= or < 0.5); Calc. Creatinine Clearance 95 mL/min (70-130); Calcium 8.4 mg/dL (7.8-10.44); Carbon Dioxide 24 mmol/L (23-31); Chloride 102 mmol/L (98-107); Globulin 2.9 g/dL (2.4-3.5); Glucose 116 mg/dL (80-115); Potassium 4.1 mmol/L (3.5-5.1); Protein, Total 6.3 g/dL (5.8-8.1); Sodium 134 mmol/L (136-145)
[2021-07-01] MEDS: Insulin Regular 300 UNITS/3 ML VIAL SC PRN ×3 (05:44→17:06)
[2021-07-01] MEDS: Guaifenesin DM 100-10/5 ML UDCUP PO SCH ×4 (08:59→20:58)
[2021-07-01] MEDS: Zinc Sulfate 220 MG CAP PO SCH (09:00)
[2021-07-01] MEDS: Ascorbic Acid 500 mg Chewable Tablet PO SCH (09:01)
[2021-07-01] MEDS: Enoxaparin Sodium 40 MG/0.4 ML SYRINGE SC SCH ×2 (09:01→20:59)
[2021-07-01] MEDS: Cholecalciferol 1,000 UNITS (25 MCG) TAB PO SCH (09:01)
[2021-07-01] MEDS: Dexamethasone 10 MG/ML VIAL SLOW IVP SCH (09:02)
[2021-07-01] MEDS: Ondansetron PF 4 MG/2 ML Vial IVP PRN (09:11)
[2021-07-01] MEDS ORDERED: FLU VACC QS2021-22(65YR UP)/PF 240 MCG/0.7 ML SYRINGE IM ONE (13:30)
[2021-07-01] MEDS ORDERED: cefTRIAXone\\ROCEPHIN 1 GM in Sodium Chloride 0.9% 100 ML IVPB SCH (14:30)
[2021-07-01] MEDS ORDERED: REMDESIVIR 100 MG in Sodium Chloride 0.9% 250 ML 230 ML IV SCH (15:00)
[2021-07-01] MEDS ORDERED: Cyclobenzaprine 10 MG TAB PO PRN (15:33)
[2021-07-01] MEDS ORDERED: Polyethylene Glycol 3350 17 GM Packet PO PRN (15:33)
[2021-07-01] MEDS ORDERED: Senokot S 8.6-50 MG TAB PO PRN (15:33)
[2021-07-01] MEDS ORDERED: Ibuprofen 600 MG TAB PO PRN (15:33)
[2021-07-01] MEDS ORDERED: Azithromycin 500 MG in Sodium Chloride 0.9% 250 ML 250 ML IVPB SCH (16:00)
[2021-07-01] MEDS: metFORMIN 500 MG TAB PO SCH (17:05)
[2021-07-01] MEDS: Gabapentin 400 MG CAP PO SCH (20:57)
[2021-07-01] MEDS: Lisinopril 10 MG TAB PO SCH (20:58)
[2021-07-01] MEDS: Atorvastatin Calcium 20 MG TAB PO SCH (20:58)
[2021-07-02] MEDS: Acetaminophen 325 MG TAB PO PRN ×2 (04:38→20:43)
[2021-07-02 06:44] LABS: Hemoglobin 15.1 g/dL (14.0-18.0); Platelet Count 198 thou/uL (130-400)
[2021-07-02 07:08] LABS: ALT (SGPT) 69 U/L (8-55); AST (SGOT) 55 U/L (5-34); Albumin 3.3 g/dL (3.4-4.8); Alkaline Phosphatase 48 U/L (40-110); Anion Gap 13 mmol/L (10-20); BUN (Urea Nitrogen) 17 mg/dL (8.4-25.7); Bilirubin, Total 0.5 mg/dL (0.2-1.2); CRP (Inflammatory) 2.93 mg/dL (= or < 0.5); Calc. Creatinine Clearance 103 mL/min (70-130); Calcium 8.3 mg/dL (7.8-10.44); Carbon Dioxide 26 mmol/L (23-31); Chloride 101 mmol/L (98-107); Globulin 2.9 g/dL (2.4-3.5); Glucose 115 mg/dL (80-115); Potassium 4.1 mmol/L (3.5-5.1); Protein, Total 6.2 g/dL (5.8-8.1); Sodium 136 mmol/L (136-145)
[2021-07-02] MEDS: Guaifenesin DM 100-10/5 ML UDCUP PO SCH ×4 (08:25→20:44)
[2021-07-02] MEDS: Cholecalciferol 1,000 UNITS (25 MCG) TAB PO SCH (08:25)
[2021-07-02] MEDS: FLUoxetine HCl 20 MG CAP PO SCH (08:26)
[2021-07-02] MEDS: metFORMIN 500 MG TAB PO SCH ×2 (08:26→17:53)
[2021-07-02] MEDS: Ascorbic Acid 500 mg Chewable Tablet PO SCH (08:26)
[2021-07-02] MEDS: Enoxaparin Sodium 40 MG/0.4 ML SYRINGE SC SCH ×2 (08:26→20:44)
[2021-07-02] MEDS: Zinc Sulfate 220 MG CAP PO SCH (08:26)
[2021-07-02] MEDS: Dexamethasone 10 MG/ML VIAL SLOW IVP SCH (08:26)
[2021-07-02] MEDS ORDERED: Liraglutide [Victoza 2-Pak] 0.6 MG/0.1 ML Pen.Injctr SC SCH (09:00)
[2021-07-02] MEDS: Albuterol 200 PUFF (6.7GM INHALER) INH SCH ×2 (13:56→17:53)
[2021-07-02] MEDS: Lisinopril 10 MG TAB PO SCH (20:42)
[2021-07-02] MEDS: Gabapentin 400 MG CAP PO SCH (20:43)
[2021-07-02] MEDS: Atorvastatin Calcium 20 MG TAB PO SCH (20:44)
[2021-07-03] MEDS: Albuterol 200 PUFF (6.7GM INHALER) INH SCH ×4 (00:14→18:31)
[2021-07-03] MEDS: Acetaminophen 325 MG TAB PO PRN ×2 (04:33→20:09)
[2021-07-03 07:05] LABS: ALT (SGPT) 81 U/L (8-55); AST (SGOT) 65 U/L (5-34); Alkaline Phosphatase 49 U/L (40-110); Anion Gap 16 mmol/L (10-20); BUN (Urea Nitrogen) 20 mg/dL (8.4-25.7); Bilirubin, Total 0.4 mg/dL (0.2-1.2); CRP (Inflammatory) 3.49 mg/dL (= or < 0.5); Calc. Creatinine Clearance 82 mL/min (70-130); Calcium 8.2 mg/dL (7.8-10.44); Carbon Dioxide 18 mmol/L (23-31); Chloride 102 mmol/L (98-107); Globulin 3.1 g/dL (2.4-3.5); Glucose 112 mg/dL (80-115); Potassium 4.1 mmol/L (3.5-5.1); Protein, Total 6.1 g/dL (5.8-8.1); Sodium 132 mmol/L (136-145)
[2021-07-03] MEDS: Guaifenesin DM 100-10/5 ML UDCUP PO SCH ×4 (08:26→20:07)
[2021-07-03] MEDS: Enoxaparin Sodium 40 MG/0.4 ML SYRINGE SC SCH ×2 (08:26→20:08)
[2021-07-03] MEDS: Dexamethasone 10 MG/ML VIAL SLOW IVP SCH (08:26)
[2021-07-03] MEDS: Ascorbic Acid 500 mg Chewable Tablet PO SCH (08:27)
[2021-07-03] MEDS: Cholecalciferol 1,000 UNITS (25 MCG) TAB PO SCH (08:27)
[2021-07-03] MEDS: metFORMIN 500 MG TAB PO SCH ×2 (08:28→17:30)
[2021-07-03] MEDS: Zinc Sulfate 220 MG CAP PO SCH (08:28)
[2021-07-03] MEDS: FLUoxetine HCl 20 MG CAP PO SCH (08:28)
[2021-07-03] MEDS: Benzonatate 100 MG CAP PO PRN (11:12)
[2021-07-03] MEDS: Gabapentin 400 MG CAP PO SCH (20:08)
[2021-07-03] MEDS: Atorvastatin Calcium 20 MG TAB PO SCH (20:09)
[2021-07-03] MEDS: Lisinopril 10 MG TAB PO SCH (20:09)
[2021-07-03] MEDS: Insulin Regular 300 UNITS/3 ML VIAL SC PRN (20:12)
[2021-07-04] MEDS: Benzonatate 100 MG CAP PO PRN ×3 (00:20→23:45)
[2021-07-04] MEDS: Albuterol 200 PUFF (6.7GM INHALER) INH SCH ×4 (00:20→18:36)
[2021-07-04] MEDS: Acetaminophen 325 MG TAB PO PRN (05:05)
[2021-07-04] MEDS: metFORMIN 500 MG TAB PO SCH ×2 (08:34→17:28)
[2021-07-04] MEDS: Ascorbic Acid 500 mg Chewable Tablet PO SCH (08:35)
[2021-07-04] MEDS: Cholecalciferol 1,000 UNITS (25 MCG) TAB PO SCH (08:35)
[2021-07-04] MEDS: Zinc Sulfate 220 MG CAP PO SCH (08:35)
[2021-07-04] MEDS: FLUoxetine HCl 20 MG CAP PO SCH (08:36)
[2021-07-04] MEDS: Dexamethasone 10 MG/ML VIAL SLOW IVP SCH (08:36)
[2021-07-04] MEDS: Guaifenesin DM 100-10/5 ML UDCUP PO SCH ×4 (08:36→22:02)
[2021-07-04] MEDS: Enoxaparin Sodium 40 MG/0.4 ML SYRINGE SC SCH ×2 (08:36→23:43)
[2021-07-04 08:51] LABS: ALT (SGPT) 77 U/L (8-55); AST (SGOT) 60 U/L (5-34); Albumin 3.3 g/dL (3.4-4.8); Alkaline Phosphatase 49 U/L (40-110); Anion Gap 15 mmol/L (10-20); BUN (Urea Nitrogen) 25 mg/dL (8.4-25.7); Bilirubin, Total 0.5 mg/dL (0.2-1.2); CRP (Inflammatory) 8.92 mg/dL (= or < 0.5); Calc. Creatinine Clearance 70 mL/min (70-130); Calcium 8.6 mg/dL (7.8-10.44); Carbon Dioxide 26 mmol/L (23-31); Chloride 97 mmol/L (98-107); Globulin 3.2 g/dL (2.4-3.5); Glucose 94 mg/dL (80-115); Potassium 4.1 mmol/L (3.5-5.1); Protein, Total 6.5 g/dL (5.8-8.1); Sodium 134 mmol/L (136-145)
[2021-07-04] MEDS: Atorvastatin Calcium 20 MG TAB PO SCH (22:02)
[2021-07-04] MEDS: Gabapentin 400 MG CAP PO SCH (23:05)
[2021-07-05] MEDS: Albuterol 200 PUFF (6.7GM INHALER) INH SCH ×4 (00:03→18:04)
[2021-07-05 07:07] LABS: #Lymphocytes 0.7 thou/uL (1.20-3.40); #Monocytes 1.2 thou/uL (0.11-0.59); #Neutrophils 10.4 thou/uL (1.40-6.50); %Basophils 0.1 % (0.0-1.0); %Eosinophils 0.1 % (0.0-10.0); %Lymphocytes 5.9 % (21.0-51.0); %Monocytes 9.8 % (0.0-10.0); %Neutrophils 84.1 % (42.0-75.0); Hemoglobin 14.3 g/dL (14.0-18.0); Mean Corpuscular HGB CONC 33.3 g/dL (32.0-36.0); Mean Corpuscular Hemoglobin 30.1 pg (27.0-31.0); Mean Corpuscular Volume 90.1 fL (78.0-98.0); Mean Platelet Volume 7.2 fL (7.4-10.4); Platelet Count 269 thou/uL (130-400); RBC Distribution Width 12.3 % (11.5-14.5); Red Blood Cell (RBC) Count 4.76 mill/uL (4.70-6.10); White Blood Cell (WBC) Count 12.4 thou/uL (4.8-10.8)
[2021-07-05 07:27] LABS: ALT (SGPT) 56 U/L (8-55); AST (SGOT) 42 U/L (5-34); Albumin 3.1 g/dL (3.4-4.8); Alkaline Phosphatase 44 U/L (40-110); Anion Gap 12 mmol/L (10-20); BUN (Urea Nitrogen) 26 mg/dL (8.4-25.7); Bilirubin, Total 0.5 mg/dL (0.2-1.2); Calc. Creatinine Clearance 86 mL/min (70-130); Calcium 8.6 mg/dL (7.8-10.44); Carbon Dioxide 26 mmol/L (23-31); Chloride 99 mmol/L (98-107); Globulin 3.3 g/dL (2.4-3.5); Glucose 115 mg/dL (80-115); Potassium 4.2 mmol/L (3.5-5.1); Protein, Total 6.4 g/dL (5.8-8.1); Sodium 133 mmol/L (136-145)
[2021-07-05] MEDS: Ascorbic Acid 500 mg Chewable Tablet PO SCH (08:34)
[2021-07-05] MEDS: Enoxaparin Sodium 40 MG/0.4 ML SYRINGE SC SCH ×2 (08:34→21:03)
[2021-07-05] MEDS: Dexamethasone 10 MG/ML VIAL SLOW IVP SCH ×2 (08:35→21:03)
[2021-07-05] MEDS: Zinc Sulfate 220 MG CAP PO SCH (08:35)
[2021-07-05] MEDS: Guaifenesin DM 100-10/5 ML UDCUP PO SCH ×4 (08:35→20:58)
[2021-07-05] MEDS: FLUoxetine HCl 20 MG CAP PO SCH (08:35)
[2021-07-05] MEDS: metFORMIN 500 MG TAB PO SCH ×2 (08:35→17:43)
[2021-07-05] MEDS: Cholecalciferol 1,000 UNITS (25 MCG) TAB PO SCH (08:35)
[2021-07-05] MEDS: BARICITINIB 2 MG TAB PO SCH ×4 (12:59→13:03)
[2021-07-05] MEDS ORDERED: BARICITINIB 2 MG TAB PO SCH (13:00)
[2021-07-05] MEDS ORDERED: Furosemide 40 MG/4 ML VIAL SLOW IVP SCH (14:00)
[2021-07-05] MEDS: Insulin Regular 300 UNITS/3 ML VIAL SC PRN ×2 (17:44→21:04)
[2021-07-05] MEDS: Mometasone 200 MCG/Formoterol 5 MCG 120 PUFF INHALER INH SCH (18:03)
[2021-07-05] MEDS: Atorvastatin Calcium 20 MG TAB PO SCH (21:03)
[2021-07-05] MEDS: Gabapentin 400 MG CAP PO SCH (21:03)
[2021-07-06] MEDS: Albuterol 200 PUFF (6.7GM INHALER) INH SCH ×4 (01:40→22:32)
[2021-07-06] MEDS: Insulin Regular 300 UNITS/3 ML VIAL SC PRN ×3 (05:30→16:31)
[2021-07-06] MEDS: Mometasone 200 MCG/Formoterol 5 MCG 120 PUFF INHALER INH SCH ×2 (05:42→18:43)
[2021-07-06 08:05] LABS: ALT (SGPT) 45 U/L (8-55); AST (SGOT) 34 U/L (5-34); Albumin 3.1 g/dL (3.4-4.8); Alkaline Phosphatase 50 U/L (40-110); Anion Gap 14 mmol/L (10-20); BUN (Urea Nitrogen) 27 mg/dL (8.4-25.7); Bilirubin, Total 0.6 mg/dL (0.2-1.2); CRP (Inflammatory) 10.65 mg/dL (= or < 0.5); Calc. Creatinine Clearance 90 mL/min (70-130); Calcium 8.8 mg/dL (7.8-10.44); Carbon Dioxide 27 mmol/L (23-31); Chloride 98 mmol/L (98-107); Globulin 3.5 g/dL (2.4-3.5); Glucose 157 mg/dL (80-115); Potassium 4.3 mmol/L (3.5-5.1); Protein, Total 6.6 g/dL (5.8-8.1); Sodium 135 mmol/L (136-145)
[2021-07-06 08:54] LABS: Band 15 % (5-11); Hemoglobin 14.6 g/dL (14.0-18.0); Lymphocytes 3 % (21-51); MDiff Complete? YES; Mean Corpuscular Volume 90.9 fL (78.0-98.0); Mean Platelet Volume 7.9 fL (7.4-10.4); Monocytes 4 % (0-10); Neutrophil 75 % (42-75); Platelet Count 283 thou/uL (130-400); Platelet Morphology Comment Appears Adequate; RBC Distribution Width 12.4 % (11.5-14.5); RBC Morphology Normal; Reactive Lymphocytes 3 % (0-10); Red Blood Cell (RBC) Count 4.88 mill/uL (4.70-6.10); White Blood Cell (WBC) Count 8.9 thou/uL (4.8-10.8)
[2021-07-06] MEDS ORDERED: BARICITINIB 2 MG TAB PO SCH ×2 (09:00→14:45)
[2021-07-06] MEDS: Guaifenesin DM 100-10/5 ML UDCUP PO SCH ×4 (09:08→22:31)
[2021-07-06] MEDS: Cholecalciferol 1,000 UNITS (25 MCG) TAB PO SCH (09:08)
[2021-07-06] MEDS: FLUoxetine HCl 20 MG CAP PO SCH (09:09)
[2021-07-06] MEDS: Zinc Sulfate 220 MG CAP PO SCH (09:09)
[2021-07-06] MEDS: Ascorbic Acid 500 mg Chewable Tablet PO SCH (09:09)
[2021-07-06] MEDS: metFORMIN 500 MG TAB PO SCH ×2 (09:09→16:25)
[2021-07-06] MEDS: Enoxaparin Sodium 40 MG/0.4 ML SYRINGE SC SCH ×2 (09:10→22:32)
[2021-07-06] MEDS: Dexamethasone 10 MG/ML VIAL SLOW IVP SCH ×2 (09:10→22:32)
[2021-07-06] MEDS: Gabapentin 300 MG CAP PO SCH (22:31)
[2021-07-06] MEDS: Atorvastatin Calcium 20 MG TAB PO SCH (22:31)
[2021-07-06] MEDS: Ondansetron PF 4 MG/2 ML Vial IVP PRN (23:01)
[2021-07-07] MEDS: Albuterol 200 PUFF (6.7GM INHALER) INH SCH ×4 (01:40→19:14)
[2021-07-07] MEDS: Insulin Regular 300 UNITS/3 ML VIAL SC PRN ×2 (05:18→18:01)
[2021-07-07] MEDS: Mometasone 200 MCG/Formoterol 5 MCG 120 PUFF INHALER INH SCH ×2 (06:09→19:14)
[2021-07-07 07:40] LABS: #Lymphocytes 0.6 thou/uL (1.20-3.40); #Monocytes 0.8 thou/uL (0.11-0.59); #Neutrophils 10.4 thou/uL (1.40-6.50); %Eosinophils 0.1 % (0.0-10.0); %Lymphocytes 5.4 % (21.0-51.0); %Monocytes 6.9 % (0.0-10.0); %Neutrophils 87.6 % (42.0-75.0); Hemoglobin 15.1 g/dL (14.0-18.0); Mean Corpuscular HGB CONC 31.6 g/dL (32.0-36.0); Mean Corpuscular Hemoglobin 29.1 pg (27.0-31.0); Mean Corpuscular Volume 92.1 fL (78.0-98.0); Mean Platelet Volume 7.2 fL (7.4-10.4); Platelet Count 291 thou/uL (130-400); RBC Distribution Width 12.3 % (11.5-14.5); Red Blood Cell (RBC) Count 5.18 mill/uL (4.70-6.10); White Blood Cell (WBC) Count 11.9 thou/uL (4.8-10.8)
[2021-07-07 08:02] LABS: ALT (SGPT) 70 U/L (8-55); AST (SGOT) 41 U/L (5-34); Albumin 2.9 g/dL (3.4-4.8); Alkaline Phosphatase 56 U/L (40-110); Anion Gap 16 mmol/L (10-20); BUN (Urea Nitrogen) 26 mg/dL (8.4-25.7); Bilirubin, Total 0.4 mg/dL (0.2-1.2); Calc. Creatinine Clearance 105 mL/min (70-130); Calcium 8.5 mg/dL (7.8-10.44); Carbon Dioxide 23 mmol/L (23-31); Chloride 98 mmol/L (98-107); Globulin 3.1 g/dL (2.4-3.5); Glucose 159 mg/dL (80-115); Potassium 4.5 mmol/L (3.5-5.1); Sodium 132 mmol/L (136-145)
[2021-07-07] MEDS: Cholecalciferol 1,000 UNITS (25 MCG) TAB PO SCH (08:36)
[2021-07-07] MEDS: metFORMIN 500 MG TAB PO SCH ×2 (08:36→17:58)
[2021-07-07] MEDS: FLUoxetine HCl 20 MG CAP PO SCH (08:37)
[2021-07-07] MEDS: Ascorbic Acid 500 mg Chewable Tablet PO SCH (08:37)
[2021-07-07] MEDS: Guaifenesin DM 100-10/5 ML UDCUP PO SCH ×4 (08:37→22:15)
[2021-07-07] MEDS: Zinc Sulfate 220 MG CAP PO SCH (08:37)
[2021-07-07] MEDS: Enoxaparin Sodium 40 MG/0.4 ML SYRINGE SC SCH ×2 (08:37→22:16)
[2021-07-07] MEDS: BARICITINIB 2 MG TAB PO SCH (08:37)
[2021-07-07] MEDS: Dexamethasone 10 MG/ML VIAL SLOW IVP SCH ×2 (08:37→22:16)
[2021-07-07] MEDS: Atorvastatin Calcium 20 MG TAB PO SCH (22:15)
[2021-07-07] MEDS: Gabapentin 300 MG CAP PO SCH (22:15)
[2021-07-07] MEDS: Acetaminophen 325 MG TAB PO PRN (23:07)
[2021-07-07] MEDS: Melatonin 3 MG TAB PO PRN (23:08)
[2021-07-07] MEDS: traMADol HCl 50 MG TAB PO PRN (23:17)
[2021-07-07] MEDS ORDERED: Morphine 4 MG/ML VIAL ONE (23:59)
[2021-07-08] MEDS ORDERED: Morphine 4 MG/ML VIAL SLOW IVP SCH ×2 (00:15→00:30)
[2021-07-08] MEDS ORDERED: Morphine 4 MG/ML VIAL ONE (00:15)
[2021-07-08] MEDS ORDERED: Enoxaparin Sodium 40 MG/0.4 ML SYRINGE SC SCH (01:00)
[2021-07-08] MEDS: Albuterol 200 PUFF (6.7GM INHALER) INH SCH ×4 (01:40→18:43)
[2021-07-08] MEDS: Morphine 4 MG/ML VIAL SLOW IVP PRN ×4 (02:49→17:59)
[2021-07-08] MEDS: Mometasone 200 MCG/Formoterol 5 MCG 120 PUFF INHALER INH SCH ×2 (06:18→18:44)
[2021-07-08] MEDS: Insulin Regular 300 UNITS/3 ML VIAL SC PRN ×3 (06:22→20:13)
[2021-07-08 07:39] LABS: #Lymphocytes 0.7 thou/uL (1.20-3.40); #Monocytes 1.2 thou/uL (0.11-0.59); #Neutrophils 13.9 thou/uL (1.40-6.50); %Lymphocytes 4.1 % (21.0-51.0); %Monocytes 7.7 % (0.0-10.0); %Neutrophils 88.1 % (42.0-75.0); Hemoglobin 14.4 g/dL (14.0-18.0); Mean Corpuscular HGB CONC 32.3 g/dL (32.0-36.0); Mean Corpuscular Hemoglobin 29.2 pg (27.0-31.0); Mean Corpuscular Volume 90.4 fL (78.0-98.0); Mean Platelet Volume 7.7 fL (7.4-10.4); Platelet Count 216 thou/uL (130-400); RBC Distribution Width 12.1 % (11.5-14.5); Red Blood Cell (RBC) Count 4.95 mill/uL (4.70-6.10); White Blood Cell (WBC) Count 15.7 thou/uL (4.8-10.8)
[2021-07-08] MEDS: metFORMIN 500 MG TAB PO SCH ×2 (07:47→16:30)
[2021-07-08 08:35] LABS: ALT (SGPT) 93 U/L (8-55); AST (SGOT) 63 U/L (5-34); Albumin 2.9 g/dL (3.4-4.8); Alkaline Phosphatase 66 U/L (40-110); Anion Gap 15 mmol/L (10-20); BUN (Urea Nitrogen) 26 mg/dL (8.4-25.7); Bilirubin, Total 0.5 mg/dL (0.2-1.2); CRP (Inflammatory) 2.54 mg/dL (= or < 0.5); Calc. Creatinine Clearance 97 mL/min (70-130); Calcium 8.5 mg/dL (7.8-10.44); Carbon Dioxide 21 mmol/L (23-31); Chloride 99 mmol/L (98-107); Globulin 3.6 g/dL (2.4-3.5); Magnesium 2.2 mg/dL (1.6-2.6); Potassium 4.9 mmol/L (3.5-5.1); Protein, Total 6.5 g/dL (5.8-8.1); Sodium 130 mmol/L (136-145)
[2021-07-08] MEDS ORDERED: Enoxaparin Sodium 80 MG/0.8 ML SYRINGE SC SCH (09:00)
[2021-07-08 09:07] LABS: Glucose 146 mg/dL (80-115)
[2021-07-08] MEDS: Zinc Sulfate 220 MG CAP PO SCH (09:15)
[2021-07-08] MEDS: Aspirin 81 mg Enteric Coated Tablet PO SCH (09:15)
[2021-07-08] MEDS: BARICITINIB 2 MG TAB PO SCH (09:15)
[2021-07-08] MEDS: FLUoxetine HCl 20 MG CAP PO SCH (09:16)
[2021-07-08] MEDS: Cholecalciferol 1,000 UNITS (25 MCG) TAB PO SCH (09:16)
[2021-07-08] MEDS: Ascorbic Acid 500 mg Chewable Tablet PO SCH (09:16)
[2021-07-08] MEDS: Dexamethasone 10 MG/ML VIAL SLOW IVP SCH ×2 (09:17→20:13)
[2021-07-08] MEDS: Guaifenesin DM 100-10/5 ML UDCUP PO SCH ×4 (09:22→20:13)
[2021-07-08] MEDS: Acetaminophen 325 MG TAB PO PRN (09:37)
[2021-07-08] MEDS ORDERED: Heparin 10,000 UNITS/ 10 ML VIAL SLOW IVP SCH (12:45)
[2021-07-08 14:22] LABS: Hemoglobin 15.6 g/dL (14.0-18.0); Platelet Count 206 thou/uL (130-400)
[2021-07-08] MEDS: Heparin 25,000 units/D5W 500 ML IVPB SCH (14:44)
[2021-07-08] MEDS: Gabapentin 300 MG CAP PO SCH (20:12)
[2021-07-08] MEDS: Atorvastatin Calcium 20 MG TAB PO SCH (20:13)
[2021-07-09] MEDS: Acetaminophen 325 MG TAB PO PRN ×3 (00:19→20:28)
[2021-07-09] MEDS: Albuterol 200 PUFF (6.7GM INHALER) INH SCH ×5 (00:34→23:09)
[2021-07-09] MEDS: Heparin 25,000 units/D5W 500 ML IVPB SCH ×2 (04:21→17:30)
[2021-07-09 04:32] LABS: ALT (SGPT) 126 U/L (8-55); AST (SGOT) 85 U/L (5-34); Alkaline Phosphatase 67 U/L (40-110); Anion Gap 14 mmol/L (10-20); BUN (Urea Nitrogen) 21 mg/dL (8.4-25.7); Bilirubin, Direct 0.4 mg/dL (0.1-0.3); Bilirubin, Total 0.5 mg/dL (0.2-1.2); Calc. Creatinine Clearance 100 mL/min (70-130); Calcium 8.5 mg/dL (7.8-10.44); Carbon Dioxide 27 mmol/L (23-31); Chloride 97 mmol/L (98-107); Glucose 205 mg/dL (80-115); Potassium 5.1 mmol/L (3.5-5.1); Protein, Total 6.5 g/dL (5.8-8.1); Sodium 133 mmol/L (136-145)
[2021-07-09 04:58] LABS: Band 2 % (5-11); Hemoglobin 14.8 g/dL (14.0-18.0); Lymphocytes 3 % (21-51); MDiff Complete? YES; Mean Corpuscular HGB CONC 33.1 g/dL (32.0-36.0); Mean Corpuscular Hemoglobin 29.8 pg (27.0-31.0); Mean Corpuscular Volume 89.9 fL (78.0-98.0); Mean Platelet Volume 7.7 fL (7.4-10.4); Monocytes 6 % (0-10); Myelocyte 1 % (0-0); Neutrophil 88 % (42-75); Platelet Count 205 thou/uL (130-400); Red Blood Cell (RBC) Count 4.97 mill/uL (4.70-6.10); White Blood Cell (WBC) Count 14.7 thou/uL (4.8-10.8)
[2021-07-09] MEDS: Insulin Regular 300 UNITS/3 ML VIAL SC PRN ×2 (05:53→17:34)
[2021-07-09] MEDS: Mometasone 200 MCG/Formoterol 5 MCG 120 PUFF INHALER INH SCH ×2 (07:17→18:40)
[2021-07-09] MEDS: Guaifenesin DM 100-10/5 ML UDCUP PO SCH ×4 (09:10→20:28)
[2021-07-09] MEDS: Zinc Sulfate 220 MG CAP PO SCH (09:11)
[2021-07-09] MEDS: Aspirin 81 mg Enteric Coated Tablet PO SCH (09:11)
[2021-07-09] MEDS: Ascorbic Acid 500 mg Chewable Tablet PO SCH (09:11)
[2021-07-09] MEDS: metFORMIN 500 MG TAB PO SCH ×2 (09:11→17:29)
[2021-07-09] MEDS: FLUoxetine HCl 20 MG CAP PO SCH (09:12)
[2021-07-09] MEDS: Cholecalciferol 1,000 UNITS (25 MCG) TAB PO SCH (09:12)
[2021-07-09] MEDS: Dexamethasone 10 MG/ML VIAL SLOW IVP SCH ×2 (09:12→20:30)
[2021-07-09] MEDS: traMADol HCl 50 MG TAB PO PRN ×3 (09:48→23:16)
[2021-07-09] MEDS: Gabapentin 300 MG CAP PO SCH (20:27)
[2021-07-09] MEDS: Atorvastatin Calcium 20 MG TAB PO SCH (20:28)
[2021-07-10] MEDS: traMADol HCl 50 MG TAB PO PRN ×2 (06:14→21:15)
[2021-07-10] MEDS: Heparin 25,000 units/D5W 500 ML IVPB SCH ×2 (06:15→18:56)
[2021-07-10] MEDS: Insulin Regular 300 UNITS/3 ML VIAL SC PRN ×2 (06:27→13:19)
[2021-07-10] MEDS: Albuterol 200 PUFF (6.7GM INHALER) INH SCH ×4 (07:04→23:58)
[2021-07-10] MEDS: Mometasone 200 MCG/Formoterol 5 MCG 120 PUFF INHALER INH SCH ×2 (07:06→18:55)
[2021-07-10] MEDS: Ascorbic Acid 500 mg Chewable Tablet PO SCH (08:04)
[2021-07-10] MEDS: Aspirin 81 mg Enteric Coated Tablet PO SCH (08:04)
[2021-07-10] MEDS: FLUoxetine HCl 20 MG CAP PO SCH (08:05)
[2021-07-10] MEDS: Cholecalciferol 1,000 UNITS (25 MCG) TAB PO SCH (08:05)
[2021-07-10] MEDS: Dexamethasone 10 MG/ML VIAL SLOW IVP SCH ×2 (08:05→21:15)
[2021-07-10] MEDS: Zinc Sulfate 220 MG CAP PO SCH (08:05)
[2021-07-10] MEDS: metFORMIN 500 MG TAB PO SCH ×2 (08:05→17:23)
[2021-07-10] MEDS: Guaifenesin DM 100-10/5 ML UDCUP PO SCH ×4 (08:06→21:15)
[2021-07-10 09:28] LABS: Hemoglobin 15.1 g/dL (14.0-18.0); Platelet Count 209 thou/uL (130-400)
[2021-07-10 09:31] LABS: Anion Gap 16 mmol/L (10-20); BUN (Urea Nitrogen) 16 mg/dL (8.4-25.7); Calc. Creatinine Clearance 111 mL/min (70-130); Calcium 8.3 mg/dL (7.8-10.44); Carbon Dioxide 22 mmol/L (23-31); Chloride 98 mmol/L (98-107); Glucose 135 mg/dL (80-115); Potassium 4.7 mmol/L (3.5-5.1); Sodium 131 mmol/L (136-145)
[2021-07-10] MEDS: Acetaminophen 325 MG TAB PO PRN (21:14)
[2021-07-10] MEDS: Gabapentin 300 MG CAP PO SCH (21:15)
[2021-07-10] MEDS: Atorvastatin Calcium 20 MG TAB PO SCH (21:15)
[2021-07-10] MEDS: Melatonin 3 MG TAB PO PRN (23:58)
[2021-07-11 03:48] LABS: Hemoglobin 15.3 g/dL (14.0-18.0); Mean Corpuscular HGB CONC 33.1 g/dL (32.0-36.0); Mean Corpuscular Hemoglobin 29.7 pg (27.0-31.0); Mean Corpuscular Volume 89.8 fL (78.0-98.0); Mean Platelet Volume 7.9 fL (7.4-10.4); Platelet Count 256 thou/uL (130-400); RBC Distribution Width 12.1 % (11.5-14.5); Red Blood Cell (RBC) Count 5.15 mill/uL (4.70-6.10); White Blood Cell (WBC) Count 20.4 thou/uL (4.8-10.8)
[2021-07-11 04:05] LABS: ALT (SGPT) 131 U/L (8-55); AST (SGOT) 89 U/L (5-34); Albumin 3.1 g/dL (3.4-4.8); Alkaline Phosphatase 65 U/L (40-110); Anion Gap 16 mmol/L (10-20); BUN (Urea Nitrogen) 16 mg/dL (8.4-25.7); Bilirubin, Total 0.7 mg/dL (0.2-1.2); Calc. Creatinine Clearance 129 mL/min (70-130); Calcium 8.5 mg/dL (7.8-10.44); Carbon Dioxide 24 mmol/L (23-31); Chloride 97 mmol/L (98-107); Globulin 3.2 g/dL (2.4-3.5); Glucose 206 mg/dL (80-115); Potassium 5.2 mmol/L (3.5-5.1); Protein, Total 6.3 g/dL (5.8-8.1); Sodium 132 mmol/L (136-145)
[2021-07-11] MEDS: Insulin Regular 300 UNITS/3 ML VIAL SC PRN ×3 (05:51→16:43)
[2021-07-11] MEDS: Heparin 25,000 units/D5W 500 ML IVPB SCH ×2 (06:36→18:42)
[2021-07-11] MEDS: Albuterol 200 PUFF (6.7GM INHALER) INH SCH ×4 (07:11→22:38)
[2021-07-11] MEDS: Mometasone 200 MCG/Formoterol 5 MCG 120 PUFF INHALER INH SCH ×2 (07:11→19:07)
[2021-07-11] MEDS: metFORMIN 500 MG TAB PO SCH ×2 (08:26→16:41)
[2021-07-11] MEDS: Dexamethasone 10 MG/ML VIAL SLOW IVP SCH ×2 (08:26→20:21)
[2021-07-11] MEDS: Aspirin 81 mg Enteric Coated Tablet PO SCH (08:26)
[2021-07-11] MEDS: Zinc Sulfate 220 MG CAP PO SCH (08:26)
[2021-07-11] MEDS: Cholecalciferol 1,000 UNITS (25 MCG) TAB PO SCH (08:26)
[2021-07-11] MEDS: FLUoxetine HCl 20 MG CAP PO SCH (08:26)
[2021-07-11] MEDS: Ascorbic Acid 500 mg Chewable Tablet PO SCH (08:26)
[2021-07-11] MEDS: Guaifenesin DM 100-10/5 ML UDCUP PO SCH ×4 (08:58→20:21)
[2021-07-11] MEDS: traMADol HCl 50 MG TAB PO PRN ×2 (08:59→22:43)
[2021-07-11] MEDS ORDERED: Insulin Regular 300 UNITS/3 ML VIAL ONE (11:37)
[2021-07-11] MEDS: Acetaminophen 325 MG TAB PO PRN (11:47)
[2021-07-11] MEDS: Morphine 4 MG/ML VIAL SLOW IVP PRN (12:48)
[2021-07-11 16:52] LABS: Bilirubin Negative (Negative); Blood, Urine 2+ (Negative); Clarity Clear (Clear); Glucose, Urine (Dipstick) Normal (Negative); Ketone, Urine Negative (Negative); Leukocyte 250 Leu/uL (Negative); Nitrite Negative (Negative); Protein, Urine (Dipstick) 10 mg/dL (Neg-Trace); Squamous Epithelial 0-3 HPF (0-3); WBC/HPF 21-50 HPF (0-3); pH, Urine 5.5 (5.0-9.0)
[2021-07-11 17:15] LABS: Bacteria/HPF 1+ HPF (None Seen)
[2021-07-11 17:16] LABS: Urine Culture Reflex Yes Yes
[2021-07-11] MEDS: Gabapentin 300 MG CAP PO SCH (20:20)
[2021-07-11] MEDS: Atorvastatin Calcium 20 MG TAB PO SCH (20:21)
[2021-07-11] MEDS: cefTRIAXone\\ROCEPHIN 1 GM in Sodium Chloride 0.9% 100 ML IVPB SCH (22:28)
[2021-07-12] MEDS: Benzonatate 100 MG CAP PO PRN ×2 (01:44→08:45)
[2021-07-12] MEDS: traMADol HCl 50 MG TAB PO PRN ×3 (04:36→17:44)
[2021-07-12] MEDS: Insulin Regular 300 UNITS/3 ML VIAL SC PRN ×2 (06:03→17:37)
[2021-07-12] MEDS: Polyethylene Glycol 3350 17 GM Packet PO PRN (06:04)
[2021-07-12 06:07] LABS: Hemoglobin 15.6 g/dL (14.0-18.0); Mean Corpuscular HGB CONC 33.8 g/dL (32.0-36.0); Mean Corpuscular Hemoglobin 30.1 pg (27.0-31.0); Mean Corpuscular Volume 89.2 fL (78.0-98.0); Mean Platelet Volume 8.1 fL (7.4-10.4); Platelet Count 303 thou/uL (130-400); RBC Distribution Width 12.2 % (11.5-14.5); Red Blood Cell (RBC) Count 5.16 mill/uL (4.70-6.10); White Blood Cell (WBC) Count 22.1 thou/uL (4.8-10.8)
[2021-07-12] MEDS: Heparin 25,000 units/D5W 500 ML IVPB SCH ×2 (06:10→17:52)
[2021-07-12 06:19] LABS: Band 3 % (5-11); MDiff Complete? YES; Monocytes 5 % (0-10); Neutrophil 92 % (42-75); Platelet Morphology Comment Appears Adequate
[2021-07-12] MEDS: Mometasone 200 MCG/Formoterol 5 MCG 120 PUFF INHALER INH SCH ×2 (06:42→19:27)
[2021-07-12] MEDS: Albuterol 200 PUFF (6.7GM INHALER) INH SCH ×3 (06:43→19:26)
[2021-07-12] MEDS: Morphine 4 MG/ML VIAL SLOW IVP PRN ×5 (08:27→21:26)
[2021-07-12] MEDS: Acetaminophen 325 MG TAB PO PRN ×2 (08:29→17:44)
[2021-07-12] MEDS: Cholecalciferol 1,000 UNITS (25 MCG) TAB PO SCH (08:29)
[2021-07-12] MEDS: Aspirin 81 mg Enteric Coated Tablet PO SCH (08:31)
[2021-07-12] MEDS: metFORMIN 500 MG TAB PO SCH ×2 (08:32→17:37)
[2021-07-12] MEDS: Zinc Sulfate 220 MG CAP PO SCH (08:32)
[2021-07-12] MEDS: Dexamethasone 10 MG/ML VIAL SLOW IVP SCH (08:32)
[2021-07-12] MEDS: Ascorbic Acid 500 mg Chewable Tablet PO SCH (08:32)
[2021-07-12] MEDS: FLUoxetine HCl 20 MG CAP PO SCH (08:32)
[2021-07-12] MEDS: Guaifenesin DM 100-10/5 ML UDCUP PO SCH ×4 (08:45→20:57)
[2021-07-12 11:12] LABS: ALT (SGPT) 132 U/L (8-55); AST (SGOT) 96 U/L (5-34); Albumin 2.9 g/dL (3.4-4.8); Alkaline Phosphatase 64 U/L (40-110); Anion Gap 17 mmol/L (10-20); BUN (Urea Nitrogen) 17 mg/dL (8.4-25.7); Bilirubin, Direct 0.1 mg/dL (0.1-0.3); Bilirubin, Total 0.5 mg/dL (0.2-1.2); Calc. Creatinine Clearance 107 mL/min (70-130); Calcium 8.6 mg/dL (7.8-10.44); Carbon Dioxide 23 mmol/L (23-31); Chloride 95 mmol/L (98-107); Glucose 181 mg/dL (80-115); Potassium 5.1 mmol/L (3.5-5.1); Protein, Total 6.7 g/dL (5.8-8.1); Sodium 130 mmol/L (136-145)
[2021-07-12] MEDS ORDERED: Fluconazole In NaCl,Iso-Osm 100 MG in Admixture Fee 2 EACH IVPB SCH (11:30)
[2021-07-12 13:08] LABS: Hemoglobin 15.9 g/dL (14.0-18.0); Platelet Count 341 thou/uL (130-400)
[2021-07-12] MEDS: Atorvastatin Calcium 20 MG TAB PO SCH (20:57)
[2021-07-12] MEDS: Gabapentin 300 MG CAP PO SCH (20:57)
[2021-07-12] MEDS: cefTRIAXone\\ROCEPHIN 1 GM in Sodium Chloride 0.9% 100 ML IVPB SCH (21:02)
[2021-07-13] MEDS: Albuterol 200 PUFF (6.7GM INHALER) INH SCH ×4 (01:13→19:43)
[2021-07-13] MEDS: Morphine 4 MG/ML VIAL SLOW IVP PRN ×5 (04:04→20:53)
[2021-07-13 04:22] LABS: Anion Gap 16 mmol/L (10-20); BUN (Urea Nitrogen) 17 mg/dL (8.4-25.7); Calc. Creatinine Clearance 110 mL/min (70-130); Calcium 8.5 mg/dL (7.8-10.44); Carbon Dioxide 21 mmol/L (23-31); Chloride 96 mmol/L (98-107); Glucose 106 mg/dL (80-115); Potassium 5.3 mmol/L (3.5-5.1); Sodium 128 mmol/L (136-145)
[2021-07-13 06:52] LABS: Lymphocytes 5 % (21-51); MDiff Complete? YES; Mean Corpuscular HGB CONC 32.8 g/dL (32.0-36.0); Mean Corpuscular Hemoglobin 29.9 pg (27.0-31.0); Mean Corpuscular Volume 91.1 fL (78.0-98.0); Mean Platelet Volume 7.7 fL (7.4-10.4); Monocytes 11 % (0-10); Neutrophil 84 % (42-75); Platelet Count 353 thou/uL (130-400); Platelet Morphology Comment Appears Adequate; RBC Distribution Width 12.4 % (11.5-14.5); RBC Morphology Normal; Red Blood Cell (RBC) Count 5.34 mill/uL (4.70-6.10); White Blood Cell (WBC) Count 27.2 thou/uL (4.8-10.8)
[2021-07-13] MEDS: Heparin 25,000 units/D5W 500 ML IVPB SCH ×2 (07:26→20:34)
[2021-07-13] MEDS: Mometasone 200 MCG/Formoterol 5 MCG 120 PUFF INHALER INH SCH ×2 (08:12→19:43)
[2021-07-13] MEDS: Fluconazole In NaCl,Iso-Osm 100 MG in Admixture Fee 2 EACH IVPB SCH (08:52)
[2021-07-13] MEDS: Guaifenesin DM 100-10/5 ML UDCUP PO SCH ×4 (08:52→20:29)
[2021-07-13] MEDS: Dexamethasone 10 MG/ML VIAL SLOW IVP SCH (08:52)
[2021-07-13] MEDS: Zinc Sulfate 220 MG CAP PO SCH (08:53)
[2021-07-13] MEDS: traMADol HCl 50 MG TAB PO PRN ×3 (08:53→23:00)
[2021-07-13] MEDS: Cholecalciferol 1,000 UNITS (25 MCG) TAB PO SCH (08:57)
[2021-07-13] MEDS: Aspirin 81 mg Enteric Coated Tablet PO SCH (08:58)
[2021-07-13] MEDS: metFORMIN 500 MG TAB PO SCH ×2 (08:58→17:34)
[2021-07-13] MEDS: FLUoxetine HCl 20 MG CAP PO SCH (08:58)
[2021-07-13] MEDS: Ascorbic Acid 500 mg Chewable Tablet PO SCH (08:58)
[2021-07-13] MEDS ORDERED: Fluconazole In NaCl,Iso-Osm 100 MG in Admixture Fee 2 EACH IVPB SCH (09:00)
[2021-07-13 11:42] LABS: Anion Gap 17 mmol/L (10-20); BUN (Urea Nitrogen) 18 mg/dL (8.4-25.7); CK (CPK) 3394 U/L (30-200); Calc. Creatinine Clearance 101 mL/min (70-130); Calcium 8.7 mg/dL (7.8-10.44); Carbon Dioxide 21 mmol/L (23-31); Chloride 95 mmol/L (98-107); Glucose 117 mg/dL (80-115); Sodium 128 mmol/L (136-145); Uric Acid 4.3 mg/dL (3.5-7.2)
[2021-07-13] MEDS: BARICITINIB 2 MG TAB PO SCH (13:10)
[2021-07-13] MEDS: Polyethylene Glycol 3350 17 GM Packet PO PRN (13:17)
[2021-07-13 14:25] LABS: Sodium, Urine 83 mmol/L (Not Available); Urea Nitrogen, Random Urine 519 mg/dl
[2021-07-13] MEDS: Insulin Regular 300 UNITS/3 ML VIAL SC PRN (17:35)
[2021-07-13] MEDS: Gabapentin 300 MG CAP PO SCH (20:33)
[2021-07-13] MEDS: Atorvastatin Calcium 20 MG TAB PO SCH (20:33)
[2021-07-13] MEDS: cefTRIAXone\\ROCEPHIN 1 GM in Sodium Chloride 0.9% 100 ML IVPB SCH (21:17)
[2021-07-14] MEDS: Morphine 4 MG/ML VIAL SLOW IVP PRN ×2 (02:29→19:49)
[2021-07-14] MEDS: Albuterol 200 PUFF (6.7GM INHALER) INH SCH ×4 (02:47→18:25)
[2021-07-14 05:41] LABS: Hemoglobin 14.9 g/dL (14.0-18.0); Platelet Count 357 thou/uL (130-400)
[2021-07-14 05:58] LABS: Hemoglobin A1c 6.2 % (4.0-6.0)
[2021-07-14 06:04] LABS: PTT 134.9 sec (22.9-36.1)
[2021-07-14] MEDS: Mometasone 200 MCG/Formoterol 5 MCG 120 PUFF INHALER INH SCH ×2 (07:17→18:26)
[2021-07-14] MEDS: traMADol HCl 50 MG TAB PO PRN ×2 (09:35→16:53)
[2021-07-14] MEDS: Polyethylene Glycol 3350 17 GM Packet PO PRN (09:36)
[2021-07-14] MEDS: Fluconazole In NaCl,Iso-Osm 100 MG in Admixture Fee 2 EACH IVPB SCH (09:36)
[2021-07-14] MEDS: Guaifenesin DM 100-10/5 ML UDCUP PO SCH ×5 (09:38→20:41)
[2021-07-14] MEDS: BARICITINIB 2 MG TAB PO SCH (09:39)
[2021-07-14] MEDS: Ascorbic Acid 500 mg Chewable Tablet PO SCH (09:44)
[2021-07-14] MEDS: FLUoxetine HCl 20 MG CAP PO SCH (09:44)
[2021-07-14] MEDS: metFORMIN 500 MG TAB PO SCH ×2 (09:44→16:54)
[2021-07-14] MEDS: Aspirin 81 mg Enteric Coated Tablet PO SCH (09:44)
[2021-07-14] MEDS: Zinc Sulfate 220 MG CAP PO SCH (09:45)
[2021-07-14] MEDS: Dexamethasone 10 MG/ML VIAL SLOW IVP SCH (09:45)
[2021-07-14] MEDS: Cholecalciferol 1,000 UNITS (25 MCG) TAB PO SCH (09:45)
[2021-07-14 12:44] LABS: Hemoglobin 16.3 g/dL (14.0-18.0); Platelet Count 359 thou/uL (130-400)
[2021-07-14] MEDS: Heparin 25,000 units/D5W 500 ML IVPB SCH (13:20)
[2021-07-14 16:16] LABS: Legionella Urinary Ag Negative (Negative); Strep pneumo Urine Ag NEGATIVE (NEGATIVE)
[2021-07-14 16:54] LABS: Anion Gap 17 mmol/L (10-20); BUN (Urea Nitrogen) 19 mg/dL (8.4-25.7); Calc. Creatinine Clearance 100 mL/min (70-130); Calcium 9.4 mg/dL (7.8-10.44); Carbon Dioxide 21 mmol/L (23-31); Chloride 93 mmol/L (98-107); Glucose 175 mg/dL (80-115); Potassium 5.5 mmol/L (3.5-5.1); Sodium 125 mmol/L (136-145)
[2021-07-14] MEDS: Insulin Regular 300 UNITS/3 ML VIAL SC PRN (16:54)
[2021-07-14] MEDS: Heparin 10,000 UNITS/ 10 ML VIAL SLOW IVP SCH (17:15)
[2021-07-14 18:29] LABS: SARS-CoV-2 NAA Rapid Test DETECTED (NotDetected)
[2021-07-14] MEDS: Gabapentin 300 MG CAP PO SCH (20:41)
[2021-07-14] MEDS: Senokot S 8.6-50 MG TAB PO SCH (20:41)
[2021-07-14] MEDS: ALPRAZolam 0.25 MG TAB PO PRN (20:42)
[2021-07-14] MEDS: Atorvastatin Calcium 20 MG TAB PO SCH (20:42)
[2021-07-14 21:51] LABS: Anion Gap 18 mmol/L (10-20); BUN (Urea Nitrogen) 19 mg/dL (8.4-25.7); Calc. Creatinine Clearance 103 mL/min (70-130); Calcium 9.4 mg/dL (7.8-10.44); Carbon Dioxide 24 mmol/L (23-31); Chloride 92 mmol/L (98-107); Glucose 149 mg/dL (80-115); Potassium 5.5 mmol/L (3.5-5.1); Sodium 128 mmol/L (136-145)
[2021-07-14] MEDS: cefTRIAXone\\ROCEPHIN 1 GM in Sodium Chloride 0.9% 100 ML IVPB SCH (22:24)
[2021-07-15 00:40] LABS: PTT 121.9 sec (22.9-36.1)
[2021-07-15] MEDS: Albuterol 200 PUFF (6.7GM INHALER) INH SCH ×4 (00:57→18:39)
[2021-07-15] MEDS: Morphine 4 MG/ML VIAL SLOW IVP PRN ×3 (03:58→22:00)
[2021-07-15 04:18] LABS: ALT (SGPT) 191 U/L (8-55); AST (SGOT) 110 U/L (5-34); Albumin 3.2 g/dL (3.4-4.8); Alkaline Phosphatase 72 U/L (40-110); Anion Gap 20 mmol/L (10-20); BUN (Urea Nitrogen) 19 mg/dL (8.4-25.7); Bilirubin, Direct 0.2 mg/dL (0.1-0.3); Bilirubin, Total 0.5 mg/dL (0.2-1.2); CK (CPK) 3355 U/L (30-200); Calc. Creatinine Clearance 104 mL/min (70-130); Calcium 9.2 mg/dL (7.8-10.44); Carbon Dioxide 21 mmol/L (23-31); Chloride 93 mmol/L (98-107); Glucose 118 mg/dL (80-115); Potassium 5.5 mmol/L (3.5-5.1); Protein, Total 7.2 g/dL (5.8-8.1); Sodium 128 mmol/L (136-145)
[2021-07-15] MEDS: traMADol HCl 50 MG TAB PO PRN ×2 (04:36→18:31)
[2021-07-15] MEDS: Heparin 25,000 units/D5W 500 ML IVPB SCH ×2 (06:15→18:18)
[2021-07-15] MEDS: Mometasone 200 MCG/Formoterol 5 MCG 120 PUFF INHALER INH SCH ×2 (07:03→18:39)
[2021-07-15] MEDS: Heparin 10,000 UNITS/ 10 ML VIAL SLOW IVP SCH (09:49)
[2021-07-15] MEDS: Guaifenesin DM 100-10/5 ML UDCUP PO SCH ×4 (10:00→21:54)
[2021-07-15] MEDS: Fluconazole In NaCl,Iso-Osm 100 MG in Admixture Fee 2 EACH IVPB SCH (10:00)
[2021-07-15] MEDS: BARICITINIB 2 MG TAB PO SCH (10:01)
[2021-07-15] MEDS: Aspirin 81 mg Enteric Coated Tablet PO SCH (10:02)
[2021-07-15] MEDS: Ascorbic Acid 500 mg Chewable Tablet PO SCH (10:02)
[2021-07-15] MEDS: Dexamethasone 10 MG/ML VIAL SLOW IVP SCH (10:02)
[2021-07-15] MEDS: Cholecalciferol 1,000 UNITS (25 MCG) TAB PO SCH (10:03)
[2021-07-15] MEDS: metFORMIN 500 MG TAB PO SCH ×2 (10:03→18:08)
[2021-07-15] MEDS: FLUoxetine HCl 20 MG CAP PO SCH (10:04)
[2021-07-15] MEDS: Zinc Sulfate 220 MG CAP PO SCH (10:04)
[2021-07-15] MEDS: Polyethylene Glycol 3350 17 GM Packet PO SCH (10:05)
[2021-07-15] MEDS: Senokot S 8.6-50 MG TAB PO SCH ×2 (10:05→21:59)
[2021-07-15] MEDS ORDERED: Aluminum & Magnesium Hydroxide 60 ML, diphenhydrAMINE 150 MG, Lidocaine 2% Viscous Solu... SSW PRN (17:49)
[2021-07-15] MEDS: Insulin Regular 300 UNITS/3 ML VIAL SC PRN (18:09)
[2021-07-15] MEDS: Nystatin 500,000 UNITS/5 ML UDCUP SSW SCH (20:55)
[2021-07-15] MEDS: Atorvastatin Calcium 20 MG TAB PO SCH (20:55)
[2021-07-15] MEDS: ALPRAZolam 0.25 MG TAB PO PRN (20:56)
[2021-07-15] MEDS: Gabapentin 300 MG CAP PO SCH (21:53)
[2021-07-15] MEDS: cefTRIAXone\\ROCEPHIN 1 GM in Sodium Chloride 0.9% 100 ML IVPB SCH (22:45)
[2021-07-16] MEDS: Albuterol 200 PUFF (6.7GM INHALER) INH SCH ×4 (00:09→18:34)
[2021-07-16] MEDS: Morphine 4 MG/ML VIAL SLOW IVP PRN ×3 (01:49→15:27)
[2021-07-16 04:31] LABS: Hemoglobin 15.2 g/dL (14.0-18.0); Lymphocytes 3 % (21-51); MDiff Complete? YES; Mean Corpuscular HGB CONC 32.1 g/dL (32.0-36.0); Mean Corpuscular Hemoglobin 28.7 pg (27.0-31.0); Mean Corpuscular Volume 89.5 fL (78.0-98.0); Mean Platelet Volume 7.9 fL (7.4-10.4); Metamyelocyte 1 % (0-0); Monocytes 10 % (0-10); Neutrophil 86 % (42-75); Platelet Count 374 thou/uL (130-400); Platelet Morphology Comment Appears Adequate; RBC Distribution Width 12.3 % (11.5-14.5); Red Blood Cell (RBC) Count 5.31 mill/uL (4.70-6.10)
[2021-07-16 05:24] LABS: BUN (Urea Nitrogen) 20 mg/dL (8.4-25.7); Carbon Dioxide 14 mmol/L (23-31); Chloride 92 mmol/L (98-107); Potassium 6.1 mmol/L (3.5-5.1); Sodium 124 mmol/L (136-145)
[2021-07-16 05:25] LABS: CK (CPK) 3283 U/L (30-200); Calc. Creatinine Clearance 106 mL/min (70-130); Glucose 97 mg/dL (80-115); Magnesium 2.1 mg/dL (1.6-2.6); Phosphorus 4.9 mg/dL (2.3-4.7)
[2021-07-16 05:27] LABS: Anion Gap 24 mmol/L (10-20)
[2021-07-16] MEDS ORDERED: Insulin Regular 300 UNITS/3 ML VIAL IVP SCH (06:15)
[2021-07-16] MEDS ORDERED: Dextrose 50% Abboject 50 ML SYRINGE SLOW IVP SCH (06:30)
[2021-07-16] MEDS: Mometasone 200 MCG/Formoterol 5 MCG 120 PUFF INHALER INH SCH ×3 (06:43→18:34)
[2021-07-16] MEDS ORDERED: Calcium Gluconate 4.6 MEQ in Sodium Chloride 0.9% 100 ML IVPB SCH (07:00)
[2021-07-16 07:07] LABS: Anion Gap 17 mmol/L (10-20); BUN (Urea Nitrogen) 21 mg/dL (8.4-25.7); Calc. Creatinine Clearance 90 mL/min (70-130); Calcium 9.3 mg/dL (7.8-10.44); Carbon Dioxide 23 mmol/L (23-31); Chloride 91 mmol/L (98-107); Glucose 101 mg/dL (80-115); Sodium 126 mmol/L (136-145)
[2021-07-16] MEDS: metFORMIN 500 MG TAB PO SCH ×2 (07:43→17:42)
[2021-07-16] MEDS: BARICITINIB 2 MG TAB PO SCH (08:38)
[2021-07-16] MEDS: Aspirin 81 mg Enteric Coated Tablet PO SCH (08:38)
[2021-07-16] MEDS: Cholecalciferol 1,000 UNITS (25 MCG) TAB PO SCH (08:38)
[2021-07-16] MEDS: Guaifenesin DM 100-10/5 ML UDCUP PO SCH ×4 (08:38→21:42)
[2021-07-16] MEDS: Zinc Sulfate 220 MG CAP PO SCH (08:39)
[2021-07-16] MEDS: Senokot S 8.6-50 MG TAB PO SCH ×2 (08:39→21:43)
[2021-07-16] MEDS: Polyethylene Glycol 3350 17 GM Packet PO SCH (08:39)
[2021-07-16] MEDS: Nystatin 500,000 UNITS/5 ML UDCUP SSW SCH ×5 (08:39→21:42)
[2021-07-16] MEDS: FLUoxetine HCl 20 MG CAP PO SCH (08:40)
[2021-07-16] MEDS: Ascorbic Acid 500 mg Chewable Tablet PO SCH (08:40)
[2021-07-16] MEDS: Dexamethasone 10 MG/ML VIAL SLOW IVP SCH (08:44)
[2021-07-16] MEDS: Fluconazole In NaCl,Iso-Osm 100 MG in Admixture Fee 2 EACH IVPB SCH (10:43)
[2021-07-16 13:17] LABS: Hemoglobin 15.7 g/dL (14.0-18.0); Platelet Count 357 thou/uL (130-400)
[2021-07-16] MEDS ORDERED: Ketamine 50 MG/ML (10ML VIAL) ONE (15:41)
[2021-07-16] MEDS ORDERED: Phenylephrine 10 MG/ML VIAL ONE (15:42)
[2021-07-16] MEDS ORDERED: Dexmedetomidine 200 MCG/2 ML VIAL ONE (15:42)
[2021-07-16] MEDS ORDERED: Ondansetron PF 4 MG/2 ML Vial ONE (16:10)
[2021-07-16] MEDS ORDERED: Dexamethasone 20 MG/5 ML VIAL ONE (16:10)
[2021-07-16] MEDS ORDERED: Succinylcholine 200 MG/10 ml SYRINGE FS ONE (16:10)
[2021-07-16] MEDS ORDERED: Rocuronium Bromide 10 MG/ML (10ML VIAL) ONE (16:10)
[2021-07-16] MEDS ORDERED: PHENYLEPHRINE-NS 100 MCG/ML 10 ML SYRINGE ONE (16:10)
[2021-07-16] MEDS ORDERED: Fentanyl 100 MCG/2 ML VIAL ONE (16:14)
[2021-07-16] MEDS ORDERED: Ventilator Sedation Protocol 1 EACH FS ONE (17:27)
[2021-07-16] MEDS ORDERED: Morphine 4 MG/ML VIAL SLOW IVP PRN (17:30)
[2021-07-16] MEDS ORDERED: DISCONTINUE PREVIOUS NARCOTIC PAIN MEDICATIONS AND BENZODIAZEPINES FS SCH (17:30)
[2021-07-16] MEDS ORDERED: Propofol BOLUS 1,000 MG/100 ML VIAL IV PRN (17:30)
[2021-07-16] MEDS ORDERED: fentaNYL Citrate/PF 2,000 MCG in Sodium Chloride 0.9% 60 ML IV SCH (17:30)
[2021-07-16] MEDS ORDERED: Fentanyl BOLUS 250 ML IVPB PRN (17:30)
[2021-07-16] MEDS: Propofol 1,000 MG/100 ML VIAL IV PRN (17:34)
[2021-07-16 18:15] LABS: Actual Bicarbonate (HCO3a) 28.6 mEq/L (22-28); Base Excess (BEa) -0.3 mEq/L (-2.0 to +3.0); CO2 Tension 64.9 mmHg (35.0-45.0); Calcium, Ionized (arterial) 1.16 mmol/L (1.12-1.30); Carboxyhemoglobin (COHb) 0.6 gm% (0.0-3.0); Hemoglobin (Hb) 15.6 g/dL (14.0-18.0); Potassium - ABG Lab 4.79 mmol/L (3.70-5.30); pH, Arterial 7.26 (7.35-7.45)
[2021-07-16 18:16] LABS: ALV-art Gradient 288.775 mmHg (0-20); O2 Tension (PaO2), arterial 57.9 mmHg (> 80.0); Puncture Site ARTERIAL LINE
[2021-07-16] MEDS: fentaNYL Citrate-0.9 % NaCl/PF 100 ML IVPB SCH (18:23)
[2021-07-16] MEDS: Lorazepam 2 MG/ML VIAL SLOW IVP PRN (18:26)
[2021-07-16] MEDS: Gabapentin 300 MG CAP PO SCH (21:42)
[2021-07-16] MEDS: cefTRIAXone\\ROCEPHIN 1 GM in Sodium Chloride 0.9% 100 ML IVPB SCH (21:43)
[2021-07-16] MEDS: Atorvastatin Calcium 20 MG TAB PO SCH (21:43)
[2021-07-16] MEDS: Insulin Regular 300 UNITS/3 ML VIAL SC PRN (22:11)
[2021-07-17] MEDS: Albuterol 200 PUFF (6.7GM INHALER) INH SCH ×4 (00:43→18:32)
[2021-07-17 06:19] LABS: Hemoglobin 14.2 g/dL (14.0-18.0); Lymphocytes 4 % (21-51); MDiff Complete? YES; Mean Corpuscular HGB CONC 32.8 g/dL (32.0-36.0); Mean Corpuscular Hemoglobin 29.7 pg (27.0-31.0); Mean Corpuscular Volume 90.7 fL (78.0-98.0); Mean Platelet Volume 7.9 fL (7.4-10.4); Monocytes 11 % (0-10); Neutrophil 85 % (42-75); Platelet Count 319 thou/uL (130-400); Platelet Morphology Comment Appears Adequate; RBC Distribution Width 12.2 % (11.5-14.5); RBC Morphology Normal; Red Blood Cell (RBC) Count 4.77 mill/uL (4.70-6.10); White Blood Cell (WBC) Count 18.5 thou/uL (4.8-10.8)
[2021-07-17 06:19] LABS: ALT (SGPT) 230 U/L (8-55); AST (SGOT) 85 U/L (5-34); Albumin 2.8 g/dL (3.4-4.8); Alkaline Phosphatase 63 U/L (40-110); Anion Gap 14 mmol/L (10-20); BUN (Urea Nitrogen) 22 mg/dL (8.4-25.7); Bilirubin, Total 0.4 mg/dL (0.2-1.2); CK (CPK) 673 U/L (30-200); Calc. Creatinine Clearance 111 mL/min (70-130); Calcium 8.9 mg/dL (7.8-10.44); Carbon Dioxide 25 mmol/L (23-31); Chloride 95 mmol/L (98-107); Globulin 3.9 g/dL (2.4-3.5); Glucose 163 mg/dL (80-115); Magnesium 2.3 mg/dL (1.6-2.6); Phosphorus 4.4 mg/dL (2.3-4.7); Protein, Total 6.7 g/dL (5.8-8.1); Sodium 129 mmol/L (136-145)
[2021-07-17] MEDS: Mometasone 200 MCG/Formoterol 5 MCG 120 PUFF INHALER INH SCH ×2 (08:14→18:33)
[2021-07-17 08:28] LABS: Anion Gap 13 mmol/L (10-20); BUN (Urea Nitrogen) 23 mg/dL (8.4-25.7); Calc. Creatinine Clearance 115 mL/min (70-130); Carbon Dioxide 26 mmol/L (23-31); Chloride 96 mmol/L (98-107); Glucose 146 mg/dL (80-115); Potassium 4.8 mmol/L (3.5-5.1); Sodium 130 mmol/L (136-145)
[2021-07-17 08:28] LABS: Actual Bicarbonate (HCO3a) 27.6 mEq/L (22-28); Base Excess (BEa) 1.8 mEq/L (-2.0 to +3.0); CO2 Tension 47.9 mmHg (35.0-45.0); Calcium, Ionized (arterial) 1.19 mmol/L (1.12-1.30); Carboxyhemoglobin (COHb) 0.4 gm% (0.0-3.0); Hemoglobin (Hb) 14.6 g/dL (14.0-18.0); O2 Tension (PaO2), arterial 66.2 mmHg (> 80.0); Potassium - ABG Lab 4.48 mmol/L (3.70-5.30); Puncture Site Arterial Line; pH, Arterial 7.38 (7.35-7.45)
[2021-07-17 08:29] LABS: ALV-art Gradient 444.325 mmHg (0-20)
[2021-07-17] MEDS: Guaifenesin DM 100-10/5 ML UDCUP PO SCH ×4 (08:56→21:37)
[2021-07-17] MEDS: Nystatin 500,000 UNITS/5 ML UDCUP SSW SCH ×4 (08:57→21:35)
[2021-07-17] MEDS: Polyethylene Glycol 3350 17 GM Packet PO SCH (08:57)
[2021-07-17] MEDS: FLUoxetine HCl 20 MG CAP PO SCH (08:58)
[2021-07-17] MEDS: Senokot S 8.6-50 MG TAB PO SCH ×2 (08:58→21:37)
[2021-07-17] MEDS: Cholecalciferol 1,000 UNITS (25 MCG) TAB PO SCH (08:58)
[2021-07-17] MEDS: Aspirin 81 mg Enteric Coated Tablet PO SCH (08:58)
[2021-07-17] MEDS: Enoxaparin Sodium 100 MG/ML SYRINGE SC SCH ×2 (08:58→21:35)
[2021-07-17] MEDS: Zinc Sulfate 220 MG CAP PO SCH (08:58)
[2021-07-17] MEDS: Dexamethasone 10 MG/ML VIAL SLOW IVP SCH (08:59)
[2021-07-17] MEDS: Ascorbic Acid 500 mg Chewable Tablet PO SCH (08:59)
[2021-07-17] MEDS: metFORMIN 500 MG TAB PO SCH ×2 (08:59→17:06)
[2021-07-17] MEDS: Insulin Regular 300 UNITS/3 ML VIAL SC PRN ×2 (10:03→16:08)
[2021-07-17] MEDS: Fluconazole In NaCl,Iso-Osm 100 MG in Admixture Fee 2 EACH IVPB SCH (10:03)
[2021-07-17] MEDS: fentaNYL Citrate-0.9 % NaCl/PF 100 ML IVPB SCH (10:31)
[2021-07-17 15:17] LABS: Mycoplasma pneumoniae IgG AB Less than 100 U/mL (0-99); Mycoplasma pneumoniae IgM AB Less than 770 U/mL (0-769)
[2021-07-17] MEDS: Propofol 1,000 MG/100 ML VIAL IV PRN (21:32)
[2021-07-17] MEDS: Gabapentin 300 MG CAP PO SCH (21:35)
[2021-07-17] MEDS: Atorvastatin Calcium 20 MG TAB PO SCH (21:36)
[2021-07-17] MEDS: cefTRIAXone\\ROCEPHIN 1 GM in Sodium Chloride 0.9% 100 ML IVPB SCH (21:38)
[2021-07-18] MEDS: Albuterol 200 PUFF (6.7GM INHALER) INH SCH ×4 (01:04→18:57)
[2021-07-18 04:07] LABS: #Lymphocytes 0.9 thou/uL (1.20-3.40); #Monocytes 2.4 thou/uL (0.11-0.59); #Neutrophils 16.6 thou/uL (1.40-6.50); %Eosinophils 0.1 % (0.0-10.0); %Lymphocytes 4.5 % (21.0-51.0); %Monocytes 11.8 % (0.0-10.0); %Neutrophils 83.5 % (42.0-75.0); Mean Corpuscular HGB CONC 32.8 g/dL (32.0-36.0); Mean Corpuscular Hemoglobin 29.7 pg (27.0-31.0); Mean Corpuscular Volume 90.8 fL (78.0-98.0); Mean Platelet Volume 7.9 fL (7.4-10.4); Platelet Count 277 thou/uL (130-400); RBC Distribution Width 12.2 % (11.5-14.5); Red Blood Cell (RBC) Count 4.72 mill/uL (4.70-6.10); White Blood Cell (WBC) Count 19.9 thou/uL (4.8-10.8)
[2021-07-18 04:26] LABS: ALT (SGPT) 219 U/L (8-55); AST (SGOT) 65 U/L (5-34); Albumin 2.8 g/dL (3.4-4.8); Alkaline Phosphatase 67 U/L (40-110); Anion Gap 11 mmol/L (10-20); BUN (Urea Nitrogen) 27 mg/dL (8.4-25.7); Bilirubin, Direct 0.2 mg/dL (0.1-0.3); Bilirubin, Total 0.3 mg/dL (0.2-1.2); CK (CPK) 213 U/L (30-200); Calc. Creatinine Clearance 102 mL/min (70-130); Calcium 8.8 mg/dL (7.8-10.44); Carbon Dioxide 29 mmol/L (23-31); Chloride 97 mmol/L (98-107); Globulin 3.4 g/dL (2.4-3.5); Glucose 133 mg/dL (80-115); Phosphorus 2.7 mg/dL (2.3-4.7); Potassium 4.7 mmol/L (3.5-5.1); Protein, Total 6.2 g/dL (5.8-8.1); Sodium 132 mmol/L (136-145)
[2021-07-18 04:35] LABS: Magnesium 2.1 mg/dL (1.6-2.6)
[2021-07-18] MEDS: fentaNYL Citrate-0.9 % NaCl/PF 100 ML IVPB SCH (05:48)
[2021-07-18] MEDS: Propofol 1,000 MG/100 ML VIAL IV PRN ×2 (06:12→16:38)
[2021-07-18 07:29] LABS: Actual Bicarbonate (HCO3a) 28.8 mEq/L (22-28); Base Excess (BEa) 2.5 mEq/L (-2.0 to +3.0); CO2 Tension 51.1 mmHg (35.0-45.0); Calcium, Ionized (arterial) 1.21 mmol/L (1.12-1.30); Carboxyhemoglobin (COHb) 0.6 gm% (0.0-3.0); Hemoglobin (Hb) 14.5 g/dL (14.0-18.0); O2 Tension (PaO2), arterial 87.6 mmHg (> 80.0); Potassium - ABG Lab 4.75 mmol/L (3.70-5.30); pH, Arterial 7.37 (7.35-7.45)
[2021-07-18 07:30] LABS: ALV-art Gradient 311.975 mmHg (0-20); Puncture Site RRA
[2021-07-18] MEDS: Mometasone 200 MCG/Formoterol 5 MCG 120 PUFF INHALER INH SCH ×2 (08:05→18:57)
[2021-07-18] MEDS: Nystatin 500,000 UNITS/5 ML UDCUP SSW SCH ×4 (09:09→21:25)
[2021-07-18] MEDS: Guaifenesin DM 100-10/5 ML UDCUP PO SCH ×4 (09:09→21:25)
[2021-07-18] MEDS: Senokot S 8.6-50 MG TAB PO SCH ×2 (09:10→21:26)
[2021-07-18] MEDS: Aspirin 81 mg Enteric Coated Tablet PO SCH (09:10)
[2021-07-18] MEDS: Dexamethasone 10 MG/ML VIAL SLOW IVP SCH (09:10)
[2021-07-18] MEDS: FLUoxetine HCl 20 MG CAP PO SCH (09:10)
[2021-07-18] MEDS: Ascorbic Acid 500 mg Chewable Tablet PO SCH (09:10)
[2021-07-18] MEDS: Polyethylene Glycol 3350 17 GM Packet PO SCH (09:10)
[2021-07-18] MEDS: Enoxaparin Sodium 100 MG/ML SYRINGE SC SCH ×2 (09:10→21:25)
[2021-07-18] MEDS: Zinc Sulfate 220 MG CAP PO SCH (09:10)
[2021-07-18] MEDS: metFORMIN 500 MG TAB PO SCH ×2 (09:10→16:38)
[2021-07-18] MEDS: Cholecalciferol 1,000 UNITS (25 MCG) TAB PO SCH (09:11)
[2021-07-18] MEDS: Insulin Regular 300 UNITS/3 ML VIAL SC PRN ×2 (09:59→16:02)
[2021-07-18] MEDS: BARICITINIB 2 MG TAB PO SCH (09:59)
[2021-07-18] MEDS: Fluconazole In NaCl,Iso-Osm 100 MG in Admixture Fee 2 EACH IVPB SCH (09:59)
[2021-07-18 13:25] LABS: Hemoglobin 14.3 g/dL (14.0-18.0); Platelet Count 273 thou/uL (130-400)
[2021-07-18] MEDS: Atorvastatin Calcium 20 MG TAB PO SCH (21:28)
[2021-07-18] MEDS: Gabapentin 300 MG CAP PO SCH (21:28)
[2021-07-18] MEDS: cefTRIAXone\\ROCEPHIN 1 GM in Sodium Chloride 0.9% 100 ML IVPB SCH (21:38)
[2021-07-19] MEDS: Albuterol 200 PUFF (6.7GM INHALER) INH SCH ×4 (01:21→18:28)
[2021-07-19] MEDS: fentaNYL Citrate-0.9 % NaCl/PF 100 ML IVPB SCH ×2 (03:22→23:43)
[2021-07-19] MEDS: Propofol 1,000 MG/100 ML VIAL IV PRN ×2 (03:31→17:14)
[2021-07-19 04:13] LABS: ALT (SGPT) 202 U/L (8-55); AST (SGOT) 55 U/L (5-34); Albumin 2.9 g/dL (3.4-4.8); Alkaline Phosphatase 70 U/L (40-110); Anion Gap 14 mmol/L (10-20); BUN (Urea Nitrogen) 27 mg/dL (8.4-25.7); Bilirubin, Total 0.3 mg/dL (0.2-1.2); CK (CPK) 116 U/L (30-200); Calc. Creatinine Clearance 115 mL/min (70-130); Calcium 8.8 mg/dL (7.8-10.44); Carbon Dioxide 26 mmol/L (23-31); Chloride 97 mmol/L (98-107); Globulin 3.4 g/dL (2.4-3.5); Glucose 134 mg/dL (80-115); Magnesium 1.9 mg/dL (1.6-2.6); Phosphorus 2.4 mg/dL (2.3-4.7); Potassium 4.9 mmol/L (3.5-5.1); Protein, Total 6.3 g/dL (5.8-8.1); Sodium 132 mmol/L (136-145)
[2021-07-19 04:19] LABS: #Eosinphils 0.1 thou/uL (0.0-0.7); #Lymphocytes 1.2 thou/uL (1.20-3.40); #Monocytes 1.7 thou/uL (0.11-0.59); #Neutrophils 13.3 thou/uL (1.40-6.50); %Eosinophils 0.5 % (0.0-10.0); %Lymphocytes 7.1 % (21.0-51.0); %Monocytes 10.6 % (0.0-10.0); %Neutrophils 81.7 % (42.0-75.0); Mean Corpuscular HGB CONC 31.3 g/dL (32.0-36.0); Mean Corpuscular Hemoglobin 29.3 pg (27.0-31.0); Mean Corpuscular Volume 93.6 fL (78.0-98.0); Mean Platelet Volume 8.1 fL (7.4-10.4); Platelet Count 245 thou/uL (130-400); RBC Distribution Width 12.3 % (11.5-14.5); Red Blood Cell (RBC) Count 4.78 mill/uL (4.70-6.10); White Blood Cell (WBC) Count 16.3 thou/uL (4.8-10.8)
[2021-07-19 07:09] LABS: Actual Bicarbonate (HCO3a) 32.1 mEq/L (22-28); Base Excess (BEa) 5.2 mEq/L (-2.0 to +3.0); CO2 Tension 56.1 mmHg (35.0-45.0); Calcium, Ionized (arterial) 1.21 mmol/L (1.12-1.30); Potassium - ABG Lab 4.91 mmol/L (3.70-5.30); pH, Arterial 7.38 (7.35-7.45)
[2021-07-19] MEDS: Mometasone 200 MCG/Formoterol 5 MCG 120 PUFF INHALER INH SCH ×2 (07:43→18:28)
[2021-07-19] MEDS: Nystatin 500,000 UNITS/5 ML UDCUP SSW SCH ×4 (09:10→21:14)
[2021-07-19] MEDS: metFORMIN 500 MG TAB PO SCH ×2 (09:10→17:14)
[2021-07-19] MEDS: Cholecalciferol 1,000 UNITS (25 MCG) TAB PO SCH (09:11)
[2021-07-19] MEDS: Zinc Sulfate 220 MG CAP PO SCH (09:11)
[2021-07-19] MEDS: Aspirin 81 mg Enteric Coated Tablet PO SCH (09:12)
[2021-07-19] MEDS: BARICITINIB 2 MG TAB PO SCH (09:12)
[2021-07-19] MEDS: Ascorbic Acid 500 mg Chewable Tablet PO SCH (09:12)
[2021-07-19] MEDS: Dexamethasone 10 MG/ML VIAL SLOW IVP SCH (09:12)
[2021-07-19] MEDS: FLUoxetine HCl 20 MG CAP PO SCH (09:12)
[2021-07-19] MEDS: Enoxaparin Sodium 100 MG/ML SYRINGE SC SCH ×2 (09:13→21:13)
[2021-07-19] MEDS: Polyethylene Glycol 3350 17 GM Packet PO SCH (09:13)
[2021-07-19] MEDS: Lorazepam 2 MG/ML VIAL SLOW IVP PRN ×4 (09:13→23:13)
[2021-07-19] MEDS: Senokot S 8.6-50 MG TAB PO SCH ×2 (09:14→21:15)
[2021-07-19] MEDS: Guaifenesin DM 100-10/5 ML UDCUP PO SCH ×4 (09:14→21:15)
[2021-07-19] MEDS: Insulin Regular 300 UNITS/3 ML VIAL SC PRN ×2 (10:16→16:41)
[2021-07-19] MEDS: Fluconazole In NaCl,Iso-Osm 100 MG in Admixture Fee 2 EACH IVPB SCH (11:11)
[2021-07-19 14:57] LABS: ALV-art Gradient 165.375 mmHg (0-20); O2 Tension (PaO2), arterial 49.7 mmHg (> 80.0); Puncture Site RRA
[2021-07-19] MEDS ORDERED: Furosemide 40 MG/4 ML VIAL IVP SCH (16:55)
[2021-07-19] MEDS: Gabapentin 300 MG CAP PO SCH (21:16)
[2021-07-19] MEDS: Atorvastatin Calcium 20 MG TAB PO SCH (21:16)
[2021-07-20] MEDS: Albuterol 200 PUFF (6.7GM INHALER) INH SCH ×5 (00:12→23:16)
[2021-07-20] MEDS: Lorazepam 2 MG/ML VIAL SLOW IVP PRN ×2 (03:14→10:30)
[2021-07-20 05:15] LABS: Band 4 % (5-11); Hemoglobin 14.2 g/dL (14.0-18.0); Lymphocytes 6 % (21-51); MDiff Complete? YES; Mean Corpuscular HGB CONC 31.8 g/dL (32.0-36.0); Mean Corpuscular Hemoglobin 29.9 pg (27.0-31.0); Mean Corpuscular Volume 94.1 fL (78.0-98.0); Mean Platelet Volume 7.8 fL (7.4-10.4); Monocytes 6 % (0-10); Myelocyte 1 % (0-0); Neutrophil 83 % (42-75); Platelet Count 263 thou/uL (130-400); RBC Distribution Width 12.1 % (11.5-14.5); Red Blood Cell (RBC) Count 4.73 mill/uL (4.70-6.10); White Blood Cell (WBC) Count 21.4 thou/uL (4.8-10.8)
[2021-07-20 05:41] LABS: ALT (SGPT) 253 U/L (8-55); AST (SGOT) 88 U/L (5-34); Albumin 3.1 g/dL (3.4-4.8); Alkaline Phosphatase 76 U/L (40-110); Anion Gap 14 mmol/L (10-20); BUN (Urea Nitrogen) 36 mg/dL (8.4-25.7); Bilirubin, Total 0.9 mg/dL (0.2-1.2); Calc. Creatinine Clearance 84 mL/min (70-130); Calcium 9.1 mg/dL (7.8-10.44); Carbon Dioxide 30 mmol/L (23-31); Chloride 92 mmol/L (98-107); Globulin 3.8 g/dL (2.4-3.5); Glucose 145 mg/dL (80-115); Phosphorus 4.1 mg/dL (2.3-4.7); Protein, Total 6.9 g/dL (5.8-8.1); Sodium 131 mmol/L (136-145)
[2021-07-20] MEDS ORDERED: Sodium Chloride 0.9% 500 ML IVPB SCH (06:15)
[2021-07-20 07:39] LABS: Actual Bicarbonate (HCO3a) 29.9 mEq/L (22-28); Base Excess (BEa) 3.4 mEq/L (-2.0 to +3.0); CO2 Tension 52.9 mmHg (35.0-45.0); Carboxyhemoglobin (COHb) 1.1 gm% (0.0-3.0); Hemoglobin (Hb) 14.1 g/dL (14.0-18.0); O2 Tension (PaO2), arterial 60.6 mmHg (> 80.0); pH, Arterial 7.37 (7.35-7.45)
[2021-07-20 07:40] LABS: Calcium, Ionized (arterial) 1.15 mmol/L (1.12-1.30); Potassium - ABG Lab 4.83 mmol/L (3.70-5.30)
[2021-07-20] MEDS: Mometasone 200 MCG/Formoterol 5 MCG 120 PUFF INHALER INH SCH ×2 (08:13→19:15)
[2021-07-20 08:14] LABS: Puncture Site RRA
[2021-07-20 08:15] LABS: ALV-art Gradient 158.475 mmHg (0-20)
[2021-07-20] MEDS: Enoxaparin Sodium 100 MG/ML SYRINGE SC SCH ×2 (10:18→20:29)
[2021-07-20] MEDS: Polyethylene Glycol 3350 17 GM Packet PO SCH (10:18)
[2021-07-20] MEDS: Cholecalciferol 1,000 UNITS (25 MCG) TAB PO SCH (10:19)
[2021-07-20] MEDS: BARICITINIB 2 MG TAB PO SCH (10:20)
[2021-07-20] MEDS: FLUoxetine HCl 20 MG CAP PO SCH (10:20)
[2021-07-20] MEDS: Aspirin 81 mg Enteric Coated Tablet PO SCH (10:21)
[2021-07-20] MEDS: Zinc Sulfate 220 MG CAP PO SCH (10:21)
[2021-07-20] MEDS: Senokot S 8.6-50 MG TAB PO SCH ×2 (10:21→20:24)
[2021-07-20] MEDS: Ascorbic Acid 500 mg Chewable Tablet PO SCH (10:21)
[2021-07-20] MEDS: metFORMIN 500 MG TAB PO SCH ×2 (10:21→16:02)
[2021-07-20] MEDS: Nystatin 500,000 UNITS/5 ML UDCUP SSW SCH ×2 (10:30→13:10)
[2021-07-20] MEDS: Dexamethasone 10 MG/ML VIAL SLOW IVP SCH (10:30)
[2021-07-20] MEDS: Guaifenesin DM 100-10/5 ML UDCUP PO SCH ×4 (10:31→20:23)
[2021-07-20] MEDS: fentaNYL Citrate-0.9 % NaCl/PF 100 ML IVPB SCH (11:00)
[2021-07-20] MEDS ORDERED: Meropenem 2 GM in Admixture Fee 1 EACH IVPB SCH (15:26)
[2021-07-20] MEDS: Insulin Regular 300 UNITS/3 ML VIAL SC PRN ×2 (15:55→22:36)
[2021-07-20] MEDS ORDERED: Meropenem 1 GM in Sodium Chloride 0.9% 100 ML IVPB SCH (16:00)
[2021-07-20] MEDS: Micafungin 100 MG in Sodium Chloride 0.9% 100 ML IVPB SCH (16:02)
[2021-07-20] MEDS: Vancomycin 1 GM in Premix Bag 1 BAG IVPB SCH (17:33)
[2021-07-20] MEDS: Meropenem 1 GM in Sodium Chloride 0.9% 100 ML IVPB SCH (18:18)
[2021-07-20] MEDS: Propofol 1,000 MG/100 ML VIAL IV PRN (20:00)
[2021-07-20] MEDS: Atorvastatin Calcium 20 MG TAB PO SCH (20:24)
[2021-07-20] MEDS: Pantoprazole 40 MG VIAL IVP SCH (20:24)
[2021-07-21] MEDS: fentaNYL Citrate-0.9 % NaCl/PF 100 ML IVPB SCH ×2 (00:40→14:54)
[2021-07-21] MEDS: Meropenem 1 GM in Sodium Chloride 0.9% 100 ML IVPB SCH ×3 (00:44→17:08)
[2021-07-21] MEDS: Insulin Regular 300 UNITS/3 ML VIAL SC PRN ×4 (03:18→23:01)
[2021-07-21] MEDS: Vancomycin 1 GM in Premix Bag 1 BAG IVPB SCH ×2 (03:22→16:28)
[2021-07-21 04:22] LABS: #Eosinphils 0.1 thou/uL (0.0-0.7); #Lymphocytes 0.8 thou/uL (1.20-3.40); #Monocytes 1.3 thou/uL (0.11-0.59); #Neutrophils 13.8 thou/uL (1.40-6.50); %Basophils 0.1 % (0.0-1.0); %Eosinophils 0.5 % (0.0-10.0); %Lymphocytes 5.2 % (21.0-51.0); %Monocytes 8.2 % (0.0-10.0); %Neutrophils 86.1 % (42.0-75.0); Mean Corpuscular HGB CONC 30.7 g/dL (32.0-36.0); Mean Corpuscular Hemoglobin 29.2 pg (27.0-31.0); Mean Platelet Volume 7.9 fL (7.4-10.4); Platelet Count 239 thou/uL (130-400); RBC Distribution Width 12.2 % (11.5-14.5)
[2021-07-21 04:49] LABS: Hep C IgG Ab Non-Reactive (NonReactive); Hep C Index 0.12 S/CO (0-0.79)
[2021-07-21 04:56] LABS: ALT (SGPT) 266 U/L (8-55); AST (SGOT) 100 U/L (5-34); Albumin 2.8 g/dL (3.4-4.8); Alkaline Phosphatase 62 U/L (40-110); Anion Gap 8 mmol/L (10-20); BUN (Urea Nitrogen) 36 mg/dL (8.4-25.7); Bilirubin, Total 0.5 mg/dL (0.2-1.2); Calc. Creatinine Clearance 108 mL/min (70-130); Calcium 8.6 mg/dL (7.8-10.44); Carbon Dioxide 34 mmol/L (23-31); Chloride 94 mmol/L (98-107); Globulin 3.4 g/dL (2.4-3.5); Glucose 186 mg/dL (80-115); Magnesium 2.2 mg/dL (1.6-2.6); Phosphorus 2.7 mg/dL (2.3-4.7); Potassium 4.9 mmol/L (3.5-5.1); Protein, Total 6.2 g/dL (5.8-8.1); Sodium 131 mmol/L (136-145)
[2021-07-21] MEDS: Propofol 1,000 MG/100 ML VIAL IV PRN ×2 (07:29→17:09)
[2021-07-21 07:40] LABS: Actual Bicarbonate (HCO3a) 24.3 mEq/L (22-28); Base Excess (BEa) 0.6 mEq/L (-2.0 to +3.0); CO2 Tension 34.8 mmHg (35.0-45.0); Calcium, Ionized (arterial) 1.12 mmol/L (1.12-1.30); Carboxyhemoglobin (COHb) 0.3 gm% (0.0-3.0); O2 Tension (PaO2), arterial 102.3 mmHg (> 80.0); Potassium - ABG Lab 4.47 mmol/L (3.70-5.30); pH, Arterial 7.46 (7.35-7.45)
[2021-07-21 09:19] LABS: Puncture Site RRA
[2021-07-21] MEDS: Mometasone 200 MCG/Formoterol 5 MCG 120 PUFF INHALER INH SCH ×2 (09:21→19:34)
[2021-07-21] MEDS: Albuterol 200 PUFF (6.7GM INHALER) INH SCH ×4 (09:21→23:36)
[2021-07-21] MEDS: Polyethylene Glycol 3350 17 GM Packet PO SCH (10:00)
[2021-07-21] MEDS: Aspirin 81 mg Enteric Coated Tablet PO SCH (10:00)
[2021-07-21] MEDS: Enoxaparin Sodium 100 MG/ML SYRINGE SC SCH ×2 (10:00→21:37)
[2021-07-21] MEDS: Ascorbic Acid 500 mg Chewable Tablet PO SCH (10:00)
[2021-07-21] MEDS: Pantoprazole 40 MG VIAL IVP SCH ×2 (10:00→21:11)
[2021-07-21] MEDS: Zinc Sulfate 220 MG CAP PO SCH (10:00)
[2021-07-21] MEDS: BARICITINIB 2 MG TAB PO SCH (10:00)
[2021-07-21] MEDS: metFORMIN 500 MG TAB PO SCH ×2 (10:00→16:20)
[2021-07-21] MEDS: Senokot S 8.6-50 MG TAB PO SCH ×2 (10:08→21:37)
[2021-07-21] MEDS: Dexamethasone 10 MG/ML VIAL SLOW IVP SCH (10:08)
[2021-07-21] MEDS: Guaifenesin DM 100-10/5 ML UDCUP PO SCH ×4 (10:09→21:49)
[2021-07-21] MEDS: Cholecalciferol 1,000 UNITS (25 MCG) TAB PO SCH ×2 (10:22)
[2021-07-21] MEDS: Acetaminophen 325 MG TAB PO PRN (14:01)
[2021-07-21] MEDS: Micafungin 100 MG in Sodium Chloride 0.9% 100 ML IVPB SCH (16:20)
[2021-07-21] MEDS: Atorvastatin Calcium 20 MG TAB PO SCH (21:37)
[2021-07-22] MEDS: Meropenem 1 GM in Sodium Chloride 0.9% 100 ML IVPB SCH ×4 (01:37→18:41)
[2021-07-22] MEDS: Propofol 1,000 MG/100 ML VIAL IV PRN ×3 (01:42→18:07)
[2021-07-22] MEDS: Vancomycin 1 GM in Premix Bag 1 BAG IVPB SCH ×2 (04:01→16:38)
[2021-07-22 05:23] LABS: Hemoglobin 11.1 g/dL (14.0-18.0); Mean Corpuscular Hemoglobin 30.4 pg (27.0-31.0); Mean Corpuscular Volume 95.1 fL (78.0-98.0); Mean Platelet Volume 7.8 fL (7.4-10.4); Platelet Count 241 thou/uL (130-400); RBC Distribution Width 11.9 % (11.5-14.5); Red Blood Cell (RBC) Count 3.66 mill/uL (4.70-6.10)
[2021-07-22 05:48] LABS: ALT (SGPT) 255 U/L (8-55); AST (SGOT) 87 U/L (5-34); Albumin 2.8 g/dL (3.4-4.8); Alkaline Phosphatase 58 U/L (40-110); Anion Gap 31 mmol/L (10-20); BUN (Urea Nitrogen) 31 mg/dL (8.4-25.7); Bilirubin, Total 0.4 mg/dL (0.2-1.2); Calc. Creatinine Clearance 127 mL/min (70-130); Calcium 8.6 mg/dL (7.8-10.44); Carbon Dioxide 14 mmol/L (23-31); Chloride 91 mmol/L (98-107); Globulin 3.3 g/dL (2.4-3.5); Glucose 143 mg/dL (80-115); Magnesium 2.1 mg/dL (1.6-2.6); Phosphorus 2.4 mg/dL (2.3-4.7); Potassium 5.3 mmol/L (3.5-5.1); Protein, Total 6.1 g/dL (5.8-8.1); Sodium 131 mmol/L (136-145)
[2021-07-22 05:53] LABS: Band 5 % (5-11); Lymphocytes 5 % (21-51); MDiff Complete? YES; Monocytes 12 % (0-10); Myelocyte 2 % (0-0); Neutrophil 76 % (42-75)
[2021-07-22 05:58] LABS: HIV (1/2) Antibody/Antigen Non-Reactive (NonReactive); HIV 1/2 INDEX 0.16 S/CO (<1.00)
[2021-07-22] MEDS: fentaNYL Citrate/PF 2,000 MCG in Sodium Chloride 0.9% 60 ML IV SCH (07:27)
[2021-07-22 07:39] LABS: Actual Bicarbonate (HCO3a) 32.4 mEq/L (22-28); CO2 Tension 59.2 mmHg (35.0-45.0); Calcium, Ionized (arterial) 1.18 mmol/L (1.12-1.30); O2 Tension (PaO2), arterial 76.1 mmHg (> 80.0); Potassium - ABG Lab 5.16 mmol/L (3.70-5.30); pH, Arterial 7.36 (7.35-7.45)
[2021-07-22 07:40] LABS: Puncture Site RRA
[2021-07-22] MEDS: Albuterol 200 PUFF (6.7GM INHALER) INH SCH ×3 (08:10→19:04)
[2021-07-22] MEDS: Mometasone 200 MCG/Formoterol 5 MCG 120 PUFF INHALER INH SCH ×2 (08:10→19:04)
[2021-07-22] MEDS: metFORMIN 500 MG TAB PO SCH ×2 (09:15→18:06)
[2021-07-22] MEDS: Aspirin 81 mg Enteric Coated Tablet PO SCH (09:15)
[2021-07-22] MEDS: BARICITINIB 2 MG TAB PO SCH (09:15)
[2021-07-22] MEDS: Ascorbic Acid 500 mg Chewable Tablet PO SCH ×2 (09:15→18:06)
[2021-07-22] MEDS: Cholecalciferol 1,000 UNITS (25 MCG) TAB PO SCH (09:15)
[2021-07-22] MEDS: Guaifenesin DM 100-10/5 ML UDCUP PO SCH ×4 (09:16→21:48)
[2021-07-22] MEDS: Polyethylene Glycol 3350 17 GM Packet PO SCH (09:16)
[2021-07-22] MEDS: Enoxaparin Sodium 100 MG/ML SYRINGE SC SCH ×2 (09:16→21:48)
[2021-07-22] MEDS: Senokot S 8.6-50 MG TAB PO SCH ×2 (09:21→21:48)
[2021-07-22] MEDS: Zinc Sulfate 220 MG CAP PO SCH ×2 (09:21→18:06)
[2021-07-22] MEDS: Pantoprazole 40 MG VIAL IVP SCH ×2 (10:58→21:47)
[2021-07-22] MEDS: Dexamethasone 10 MG/ML VIAL SLOW IVP SCH (11:07)
[2021-07-22] MEDS ORDERED: PROPOFOL 200 MG/20 ML VIAL ONE (11:37)
[2021-07-22] MEDS ORDERED: Rocuronium Bromide 10 MG/ML (10ML VIAL) ONE (11:37)
[2021-07-22 15:58] LABS: Vancomycin, Trough 12.2 ug/mL
[2021-07-22] MEDS: Micafungin 100 MG in Sodium Chloride 0.9% 100 ML IVPB SCH (16:42)
[2021-07-22] MEDS: Insulin Regular 300 UNITS/3 ML VIAL SC PRN ×2 (16:45→22:21)
[2021-07-22] MEDS: Atorvastatin Calcium 20 MG TAB PO SCH (21:47)
[2021-07-23] MEDS: Albuterol 200 PUFF (6.7GM INHALER) INH SCH ×4 (00:08→18:07)
[2021-07-23] MEDS: Meropenem 1 GM in Sodium Chloride 0.9% 100 ML IVPB SCH ×3 (02:38→17:51)
[2021-07-23] MEDS: Propofol 1,000 MG/100 ML VIAL IV PRN ×3 (02:39→17:50)
[2021-07-23] MEDS: fentaNYL Citrate/PF 2,000 MCG in Sodium Chloride 0.9% 60 ML IV SCH ×2 (03:12→22:36)
[2021-07-23 04:04] LABS: #Basophils 0.1 thou/uL (0.0-0.2); #Eosinphils 0.1 thou/uL (0.0-0.7); #Lymphocytes 1.2 thou/uL (1.20-3.40); #Monocytes 1.6 thou/uL (0.11-0.59); #Neutrophils 13.7 thou/uL (1.40-6.50); %Basophils 0.4 % (0.0-1.0); %Eosinophils 0.5 % (0.0-10.0); %Lymphocytes 7.2 % (21.0-51.0); %Monocytes 9.3 % (0.0-10.0); %Neutrophils 82.5 % (42.0-75.0); Hemoglobin 10.2 g/dL (14.0-18.0); Mean Corpuscular HGB CONC 32.4 g/dL (32.0-36.0); Mean Corpuscular Hemoglobin 30.3 pg (27.0-31.0); Mean Corpuscular Volume 93.6 fL (78.0-98.0); Platelet Count 242 thou/uL (130-400); RBC Distribution Width 11.8 % (11.5-14.5); Red Blood Cell (RBC) Count 3.37 mill/uL (4.70-6.10); White Blood Cell (WBC) Count 16.6 thou/uL (4.8-10.8)
[2021-07-23 04:41] LABS: ALT (SGPT) 260 U/L (8-55); AST (SGOT) 95 U/L (5-34); Albumin 2.8 g/dL (3.4-4.8); Alkaline Phosphatase 53 U/L (40-110); BUN (Urea Nitrogen) 29 mg/dL (8.4-25.7); Bilirubin, Total 0.4 mg/dL (0.2-1.2); Calc. Creatinine Clearance 126 mL/min (70-130); Calcium 8.5 mg/dL (7.8-10.44); Globulin 3.2 g/dL (2.4-3.5); Glucose 112 mg/dL (80-115); Magnesium 2.2 mg/dL (1.6-2.6); Phosphorus 2.3 mg/dL (2.3-4.7)
[2021-07-23] MEDS: Vancomycin 1 GM in Premix Bag 1 BAG IVPB SCH ×2 (04:41→16:54)
[2021-07-23 05:10] LABS: Anion Gap 13 mmol/L (10-20); Carbon Dioxide 33 mmol/L (23-31); Chloride 91 mmol/L (98-107); Potassium 5.3 mmol/L (3.5-5.1); Sodium 132 mmol/L (136-145)
[2021-07-23] MEDS: Mometasone 200 MCG/Formoterol 5 MCG 120 PUFF INHALER INH SCH ×2 (07:11→18:07)
[2021-07-23 08:04] LABS: Actual Bicarbonate (HCO3a) 32.4 mEq/L (22-28); Analyzer IN Cardio OR; Base Excess (BEa) 7.7 mEq/L (-2.0 to +3.0); CO2 Tension 46.1 mmHg (35.0-45.0); Calcium, Ionized (arterial) 1.12 mmol/L (1.12-1.30); Carboxyhemoglobin (COHb) 0.9 gm% (0.0-3.0); O2 Tension (PaO2), arterial 62.7 mmHg (> 80.0); Puncture Site LRA; pH, Arterial 7.47 (7.35-7.45)
[2021-07-23 08:05] LABS: ALV-art Gradient 164.875 mmHg (0-20)
[2021-07-23] MEDS: Polyethylene Glycol 3350 17 GM Packet PO SCH (09:30)
[2021-07-23] MEDS: metFORMIN 500 MG TAB PO SCH ×2 (09:30→16:55)
[2021-07-23] MEDS: Aspirin 81 mg Enteric Coated Tablet PO SCH (09:31)
[2021-07-23] MEDS: Senokot S 8.6-50 MG TAB PO SCH ×2 (09:31→21:29)
[2021-07-23] MEDS: Ascorbic Acid 500 mg Chewable Tablet PO SCH (09:32)
[2021-07-23] MEDS: Cholecalciferol 1,000 UNITS (25 MCG) TAB PO SCH (09:33)
[2021-07-23] MEDS: BARICITINIB 2 MG TAB PO SCH (09:33)
[2021-07-23] MEDS: Dexamethasone 10 MG/ML VIAL SLOW IVP SCH (09:33)
[2021-07-23] MEDS: Zinc Sulfate 220 MG CAP PO SCH (09:33)
[2021-07-23] MEDS: Enoxaparin Sodium 100 MG/ML SYRINGE SC SCH ×2 (09:33→21:28)
[2021-07-23] MEDS: Guaifenesin DM 100-10/5 ML UDCUP PO SCH ×4 (09:34→21:29)
[2021-07-23] MEDS: Pantoprazole 40 MG VIAL IVP SCH ×2 (09:34→21:29)
[2021-07-23] MEDS ORDERED: Sodium Chloride 0.9% 1,000 ML IV SCH ×2 (10:30→11:00)
[2021-07-23] MEDS: Insulin Regular 300 UNITS/3 ML VIAL SC PRN (17:07)
[2021-07-23] MEDS: Micafungin 100 MG in Sodium Chloride 0.9% 100 ML IVPB SCH (17:50)
[2021-07-23] MEDS ORDERED: Dextrose 50% Abboject 50 ML SYRINGE SLOW IVP PRN (20:45)
[2021-07-23] MEDS ORDERED: Dextrose 5% in Water 1,000 ML IV PRN (20:45)
[2021-07-23] MEDS: Atorvastatin Calcium 20 MG TAB PO SCH (21:30)
[2021-07-23] MEDS: Lantus 1000 UNITS/10 ML VIAL SC SCH (22:35)
[2021-07-24] MEDS: Albuterol 200 PUFF (6.7GM INHALER) INH SCH ×4 (00:17→18:35)
[2021-07-24] MEDS: Meropenem 1 GM in Sodium Chloride 0.9% 100 ML IVPB SCH ×3 (02:42→20:19)
[2021-07-24] MEDS: Vancomycin 1 GM in Premix Bag 1 BAG IVPB SCH (04:49)
[2021-07-24 06:30] LABS: #Basophils 0.1 thou/uL (0.0-0.2); #Eosinphils 0.3 thou/uL (0.0-0.7); #Lymphocytes 1.5 thou/uL (1.20-3.40); #Monocytes 1.9 thou/uL (0.11-0.59); #Neutrophils 13.2 thou/uL (1.40-6.50); %Basophils 0.6 % (0.0-1.0); %Eosinophils 1.5 % (0.0-10.0); %Lymphocytes 8.6 % (21.0-51.0); %Monocytes 11.4 % (0.0-10.0); %Neutrophils 77.9 % (42.0-75.0); Hemoglobin 10.9 g/dL (14.0-18.0); Mean Corpuscular HGB CONC 32.5 g/dL (32.0-36.0); Mean Corpuscular Hemoglobin 29.9 pg (27.0-31.0); Mean Platelet Volume 8.2 fL (7.4-10.4); Platelet Count 144 thou/uL (130-400); Red Blood Cell (RBC) Count 3.64 mill/uL (4.70-6.10); White Blood Cell (WBC) Count 16.9 thou/uL (4.8-10.8)
[2021-07-24 07:00] LABS: ALT (SGPT) 264 U/L (8-55); AST (SGOT) 96 U/L (5-34); Albumin 2.9 g/dL (3.4-4.8); Alkaline Phosphatase 57 U/L (40-110); Anion Gap 10 mmol/L (10-20); BUN (Urea Nitrogen) 23 mg/dL (8.4-25.7); Bilirubin, Total 0.6 mg/dL (0.2-1.2); Calc. Creatinine Clearance 135 mL/min (70-130); Calcium 8.4 mg/dL (7.8-10.44); Carbon Dioxide 33 mmol/L (23-31); Chloride 93 mmol/L (98-107); Globulin 2.8 g/dL (2.4-3.5); Glucose 112 mg/dL (80-115); Magnesium 2.2 mg/dL (1.6-2.6); Potassium 5.1 mmol/L (3.5-5.1); Protein, Total 5.7 g/dL (5.8-8.1); Sodium 131 mmol/L (136-145)
[2021-07-24] MEDS: Mometasone 200 MCG/Formoterol 5 MCG 120 PUFF INHALER INH SCH ×2 (07:13→18:35)
[2021-07-24 07:57] LABS: Actual Bicarbonate (HCO3a) 31.7 mEq/L (22-28); Base Excess (BEa) 6.9 mEq/L (-2.0 to +3.0); CO2 Tension 46.8 mmHg (35.0-45.0); Calcium, Ionized (arterial) 1.08 mmol/L (1.12-1.30); Carboxyhemoglobin (COHb) 0.7 gm% (0.0-3.0); Hemoglobin (Hb) 8.1 g/dL (14.0-18.0); O2 Tension (PaO2), arterial 76.6 mmHg (> 80.0); Potassium - ABG Lab 4.26 mmol/L (3.70-5.30); pH, Arterial 7.45 (7.35-7.45)
[2021-07-24 07:58] LABS: Puncture Site LRA
[2021-07-24] MEDS: Ascorbic Acid 500 mg Chewable Tablet PO SCH (09:41)
[2021-07-24] MEDS: Cholecalciferol 1,000 UNITS (25 MCG) TAB PO SCH (09:41)
[2021-07-24] MEDS: Aspirin 81 mg Enteric Coated Tablet PO SCH (09:41)
[2021-07-24] MEDS: BARICITINIB 2 MG TAB PO SCH (09:41)
[2021-07-24] MEDS: Enoxaparin Sodium 100 MG/ML SYRINGE SC SCH ×2 (09:41→21:08)
[2021-07-24] MEDS: Dexamethasone 10 MG/ML VIAL SLOW IVP SCH (09:41)
[2021-07-24] MEDS: Polyethylene Glycol 3350 17 GM Packet PO SCH (09:41)
[2021-07-24] MEDS: Zinc Sulfate 220 MG CAP PO SCH (09:41)
[2021-07-24] MEDS: Guaifenesin DM 100-10/5 ML UDCUP PO SCH ×4 (09:42→22:30)
[2021-07-24] MEDS: Pantoprazole 40 MG VIAL IVP SCH ×2 (09:42→21:07)
[2021-07-24] MEDS: Senokot S 8.6-50 MG TAB PO SCH ×2 (09:46→21:07)
[2021-07-24] MEDS ORDERED: Dexmedetomidine In 0.9 % NaCl 100 ML IVPB SCH (15:15)
[2021-07-24] MEDS: fentaNYL Citrate/PF 2,000 MCG in Sodium Chloride 0.9% 60 ML IV SCH (15:37)
[2021-07-24] MEDS: fentaNYL 100 mcg/hour Patch TD SCH (15:38)
[2021-07-24] MEDS: VANCOMYCIN 1.25 GM/250 ML BAG 1.25 GM in Premix Bag 1 BAG IVPB SCH (16:52)
[2021-07-24] MEDS: Micafungin 100 MG in Sodium Chloride 0.9% 100 ML IVPB SCH (16:52)
[2021-07-24] MEDS: HumaLOG 300 UNITS/3 ML VIAL SC PRN (16:56)
[2021-07-24] MEDS: Atorvastatin Calcium 20 MG TAB PO SCH (21:08)
[2021-07-24] MEDS: Lantus 1000 UNITS/10 ML VIAL SC SCH (21:09)
[2021-07-25] MEDS: Albuterol 200 PUFF (6.7GM INHALER) INH SCH ×5 (00:09→23:40)
[2021-07-25] MEDS: Meropenem 1 GM in Sodium Chloride 0.9% 100 ML IVPB SCH ×3 (04:11→17:02)
[2021-07-25] MEDS: VANCOMYCIN 1.25 GM/250 ML BAG 1.25 GM in Premix Bag 1 BAG IVPB SCH ×2 (04:11→17:02)
[2021-07-25 06:58] LABS: #Eosinphils 0.2 thou/uL (0.0-0.7); #Monocytes 0.5 thou/uL (0.11-0.59); #Neutrophils 10.5 thou/uL (1.40-6.50); %Basophils 0.4 % (0.0-1.0); %Eosinophils 1.8 % (0.0-10.0); %Lymphocytes 15.2 % (21.0-51.0); %Monocytes 3.7 % (0.0-10.0); %Neutrophils 78.8 % (42.0-75.0); Hemoglobin 8.8 g/dL (14.0-18.0); Mean Corpuscular HGB CONC 32.2 g/dL (32.0-36.0); Mean Corpuscular Hemoglobin 29.7 pg (27.0-31.0); Mean Corpuscular Volume 92.4 fL (78.0-98.0); Mean Platelet Volume 7.9 fL (7.4-10.4); Platelet Count 243 thou/uL (130-400); Red Blood Cell (RBC) Count 2.96 mill/uL (4.70-6.10); White Blood Cell (WBC) Count 13.3 thou/uL (4.8-10.8)
[2021-07-25 07:06] LABS: ALT (SGPT) 277 U/L (8-55); AST (SGOT) 102 U/L (5-34); Albumin 2.7 g/dL (3.4-4.8); Alkaline Phosphatase 51 U/L (40-110); Anion Gap 13 mmol/L (10-20); BUN (Urea Nitrogen) 23 mg/dL (8.4-25.7); Bilirubin, Total 0.5 mg/dL (0.2-1.2); Calc. Creatinine Clearance 146 mL/min (70-130); Calcium 8.2 mg/dL (7.8-10.44); Carbon Dioxide 27 mmol/L (23-31); Chloride 94 mmol/L (98-107); Globulin 2.6 g/dL (2.4-3.5); Glucose 108 mg/dL (80-115); Magnesium 2.1 mg/dL (1.6-2.6); Potassium 4.4 mmol/L (3.5-5.1); Protein, Total 5.3 g/dL (5.8-8.1); Sodium 130 mmol/L (136-145)
[2021-07-25] MEDS: Mometasone 200 MCG/Formoterol 5 MCG 120 PUFF INHALER INH SCH ×2 (07:29→19:54)
[2021-07-25 07:30] LABS: Actual Bicarbonate (HCO3a) 32.3 mEq/L (22-28); Base Excess (BEa) 8.1 mEq/L (-2.0 to +3.0); CO2 Tension 43.5 mmHg (35.0-45.0); Carboxyhemoglobin (COHb) 0.3 gm% (0.0-3.0); Hemoglobin (Hb) 8.8 g/dL (14.0-18.0); O2 Tension (PaO2), arterial 62.1 mmHg (> 80.0); Potassium - ABG Lab 4.07 mmol/L (3.70-5.30); pH, Arterial 7.49 (7.35-7.45)
[2021-07-25 07:34] LABS: ALV-art Gradient 168.725 mmHg (0-20); Puncture Site RRA
[2021-07-25] MEDS: Guaifenesin DM 100-10/5 ML UDCUP PO SCH ×4 (08:35→22:00)
[2021-07-25] MEDS: Ascorbic Acid 500 mg Chewable Tablet PO SCH (08:35)
[2021-07-25] MEDS: Zinc Sulfate 220 MG CAP PO SCH (08:35)
[2021-07-25] MEDS: Enoxaparin Sodium 100 MG/ML SYRINGE SC SCH ×2 (08:36→21:48)
[2021-07-25] MEDS: Aspirin Chewable 81 MG TAB PO SCH (08:36)
[2021-07-25] MEDS: Pantoprazole 40 MG VIAL IVP SCH ×2 (08:36→21:49)
[2021-07-25] MEDS: Polyethylene Glycol 3350 17 GM Packet PO SCH (08:37)
[2021-07-25] MEDS: Senokot S 8.6-50 MG TAB PO SCH ×2 (08:38→21:50)
[2021-07-25] MEDS: Dexamethasone 10 MG/ML VIAL SLOW IVP SCH (08:43)
[2021-07-25] MEDS: Cholecalciferol 1,000 UNITS (25 MCG) TAB PO SCH (08:43)
[2021-07-25] MEDS: Micafungin 100 MG in Sodium Chloride 0.9% 100 ML IVPB SCH (17:01)
[2021-07-25] MEDS: HumaLOG 300 UNITS/3 ML VIAL SC PRN (17:05)
[2021-07-25] MEDS: Atorvastatin Calcium 20 MG TAB PO SCH (21:48)
[2021-07-25] MEDS: Lantus 1000 UNITS/10 ML VIAL SC SCH (21:49)
[2021-07-26] MEDS: Meropenem 1 GM in Sodium Chloride 0.9% 100 ML IVPB SCH ×3 (02:22→17:00)
[2021-07-26 03:47] LABS: #Basophils 0.1 thou/uL (0.0-0.2); #Eosinphils 0.2 thou/uL (0.0-0.7); #Lymphocytes 0.9 thou/uL (1.20-3.40); #Monocytes 1.1 thou/uL (0.11-0.59); #Neutrophils 11.2 thou/uL (1.40-6.50); %Basophils 0.5 % (0.0-1.0); %Eosinophils 1.7 % (0.0-10.0); %Lymphocytes 6.8 % (21.0-51.0); %Monocytes 8.2 % (0.0-10.0); %Neutrophils 82.8 % (42.0-75.0); Hemoglobin 8.4 g/dL (14.0-18.0); Mean Corpuscular HGB CONC 33.7 g/dL (32.0-36.0); Mean Corpuscular Hemoglobin 30.5 pg (27.0-31.0); Mean Corpuscular Volume 90.6 fL (78.0-98.0); Mean Platelet Volume 7.8 fL (7.4-10.4); Platelet Count 261 thou/uL (130-400); RBC Distribution Width 12.4 % (11.5-14.5); Red Blood Cell (RBC) Count 2.74 mill/uL (4.70-6.10); White Blood Cell (WBC) Count 13.6 thou/uL (4.8-10.8)
[2021-07-26] MEDS: VANCOMYCIN 1.25 GM/250 ML BAG 1.25 GM in Premix Bag 1 BAG IVPB SCH (04:00)
[2021-07-26 04:24] LABS: ALT (SGPT) 277 U/L (8-55); AST (SGOT) 100 U/L (5-34); Albumin 2.6 g/dL (3.4-4.8); Alkaline Phosphatase 54 U/L (40-110); Anion Gap 10 mmol/L (10-20); BUN (Urea Nitrogen) 23 mg/dL (8.4-25.7); Bilirubin, Total 0.6 mg/dL (0.2-1.2); Calc. Creatinine Clearance 148 mL/min (70-130); Carbon Dioxide 27 mmol/L (23-31); Chloride 97 mmol/L (98-107); Globulin 2.7 g/dL (2.4-3.5); Glucose 109 mg/dL (80-115); Magnesium 2.1 mg/dL (1.6-2.6); Potassium 4.1 mmol/L (3.5-5.1); Protein, Total 5.3 g/dL (5.8-8.1); Sodium 130 mmol/L (136-145)
[2021-07-26 04:29] LABS: Vancomycin, Trough 21.7 ug/mL
[2021-07-26] MEDS: Mometasone 200 MCG/Formoterol 5 MCG 120 PUFF INHALER INH SCH ×2 (07:19→19:10)
[2021-07-26] MEDS: Albuterol 200 PUFF (6.7GM INHALER) INH SCH ×4 (07:19→23:44)
[2021-07-26] MEDS ORDERED: VANCOMYCIN IVPB PRN (07:29)
[2021-07-26 07:45] LABS: Actual Bicarbonate (HCO3a) 25.8 mEq/L (22-28); Base Excess (BEa) 2.4 mEq/L (-2.0 to +3.0); CO2 Tension 34.8 mmHg (35.0-45.0); Calcium, Ionized (arterial) 1.11 mmol/L (1.12-1.30); Carboxyhemoglobin (COHb) 0.5 gm% (0.0-3.0); Hemoglobin (Hb) 8.8 g/dL (14.0-18.0); O2 Tension (PaO2), arterial 65.4 mmHg (> 80.0); Potassium - ABG Lab 3.94 mmol/L (3.70-5.30); pH, Arterial 7.49 (7.35-7.45)
[2021-07-26] MEDS: Guaifenesin DM 100-10/5 ML UDCUP PO SCH ×4 (07:51→20:26)
[2021-07-26] MEDS: Ascorbic Acid 500 mg Chewable Tablet PO SCH (07:52)
[2021-07-26] MEDS: Pantoprazole 40 MG VIAL IVP SCH ×2 (07:52→20:26)
[2021-07-26] MEDS: Zinc Sulfate 220 MG CAP PO SCH (07:52)
[2021-07-26] MEDS: Senokot S 8.6-50 MG TAB PO SCH ×2 (07:52→20:23)
[2021-07-26] MEDS: Enoxaparin Sodium 100 MG/ML SYRINGE SC SCH ×2 (07:52→20:26)
[2021-07-26] MEDS: Aspirin Chewable 81 MG TAB PO SCH (07:53)
[2021-07-26] MEDS: Polyethylene Glycol 3350 17 GM Packet PO SCH (07:53)
[2021-07-26] MEDS: Cholecalciferol 1,000 UNITS (25 MCG) TAB PO SCH (07:57)
[2021-07-26] MEDS: Dexamethasone 10 MG/ML VIAL SLOW IVP SCH (07:58)
[2021-07-26 08:03] LABS: Puncture Site LRA
[2021-07-26] MEDS: Lorazepam 2 MG/ML VIAL SLOW IVP PRN (12:50)
[2021-07-26] MEDS ORDERED: Rocuronium Bromide 10 MG/ML (10ML VIAL) ONE (13:30)
[2021-07-26] MEDS ORDERED: PROPOFOL 200 MG/20 ML VIAL ONE (13:30)
[2021-07-26] MEDS: Micafungin 100 MG in Sodium Chloride 0.9% 100 ML IVPB SCH (15:38)
[2021-07-26] MEDS: valACYclovir 500 MG TAB PER TUBE SCH ×2 (15:39→20:26)
[2021-07-26] MEDS ORDERED: Vancomycin 1 GM in Premix Bag 1 BAG IVPB SCH (16:00)
[2021-07-26] MEDS: Lantus 1000 UNITS/10 ML VIAL SC SCH (20:25)
[2021-07-26] MEDS: Atorvastatin Calcium 20 MG TAB PO SCH (20:28)
[2021-07-27] MEDS: Meropenem 1 GM in Sodium Chloride 0.9% 100 ML IVPB SCH ×3 (02:40→17:25)
[2021-07-27] MEDS: Lorazepam 2 MG/ML VIAL SLOW IVP PRN (02:41)
[2021-07-27 03:30] LABS: #Eosinphils 0.2 thou/uL (0.0-0.7); #Monocytes 1.1 thou/uL (0.11-0.59); #Neutrophils 9.8 thou/uL (1.40-6.50); %Basophils 0.3 % (0.0-1.0); %Eosinophils 1.4 % (0.0-10.0); %Lymphocytes 8.5 % (21.0-51.0); %Neutrophils 80.8 % (42.0-75.0); Hemoglobin 8.3 g/dL (14.0-18.0); Mean Corpuscular HGB CONC 33.6 g/dL (32.0-36.0); Mean Corpuscular Hemoglobin 30.6 pg (27.0-31.0); Mean Corpuscular Volume 91.1 fL (78.0-98.0); Mean Platelet Volume 7.4 fL (7.4-10.4); Platelet Count 329 thou/uL (130-400); RBC Distribution Width 12.7 % (11.5-14.5); Red Blood Cell (RBC) Count 2.72 mill/uL (4.70-6.10); White Blood Cell (WBC) Count 12.2 thou/uL (4.8-10.8)
[2021-07-27 03:59] LABS: ALT (SGPT) 239 U/L (8-55); AST (SGOT) 85 U/L (5-34); Albumin 2.5 g/dL (3.4-4.8); Alkaline Phosphatase 54 U/L (40-110); Anion Gap 8 mmol/L (10-20); BUN (Urea Nitrogen) 17 mg/dL (8.4-25.7); Bilirubin, Total 0.7 mg/dL (0.2-1.2); Calc. Creatinine Clearance 141 mL/min (70-130); Calcium 8.1 mg/dL (7.8-10.44); Carbon Dioxide 27 mmol/L (23-31); Chloride 98 mmol/L (98-107); Globulin 3.2 g/dL (2.4-3.5); Glucose 93 mg/dL (80-115); Magnesium 2.1 mg/dL (1.6-2.6); Potassium 4.3 mmol/L (3.5-5.1); Protein, Total 5.7 g/dL (5.8-8.1); Sodium 129 mmol/L (136-145)
[2021-07-27] MEDS: Albuterol 200 PUFF (6.7GM INHALER) INH SCH ×4 (06:52→23:10)
[2021-07-27] MEDS: Mometasone 200 MCG/Formoterol 5 MCG 120 PUFF INHALER INH SCH ×2 (06:53→18:58)
[2021-07-27 07:17] LABS: Actual Bicarbonate (HCO3a) 31.4 mEq/L (22-28); Base Excess (BEa) 6.8 mEq/L (-2.0 to +3.0); CO2 Tension 45.1 mmHg (35.0-45.0); Calcium, Ionized (arterial) 1.08 mmol/L (1.12-1.30); Carboxyhemoglobin (COHb) 0.9 gm% (0.0-3.0); Hemoglobin (Hb) 7.8 g/dL (14.0-18.0); Potassium - ABG Lab 3.84 mmol/L (3.70-5.30); pH, Arterial 7.46 (7.35-7.45)
[2021-07-27 08:16] LABS: Puncture Site LRA
[2021-07-27 08:17] LABS: ALV-art Gradient 209.775 mmHg (0-20)
[2021-07-27] MEDS: Guaifenesin DM 100-10/5 ML UDCUP PO SCH ×4 (08:37→20:10)
[2021-07-27] MEDS: Pantoprazole 40 MG VIAL IVP SCH ×2 (08:37→20:10)
[2021-07-27] MEDS: Senokot S 8.6-50 MG TAB PO SCH ×2 (08:37→20:10)
[2021-07-27] MEDS: Zinc Sulfate 220 MG CAP PO SCH (08:38)
[2021-07-27] MEDS: Cholecalciferol 1,000 UNITS (25 MCG) TAB PO SCH (08:38)
[2021-07-27] MEDS: Ascorbic Acid 500 mg Chewable Tablet PO SCH (08:38)
[2021-07-27] MEDS: Aspirin Chewable 81 MG TAB PO SCH (08:38)
[2021-07-27] MEDS: Enoxaparin Sodium 100 MG/ML SYRINGE SC SCH ×2 (08:39→20:19)
[2021-07-27] MEDS: Dexamethasone 10 MG/ML VIAL SLOW IVP SCH (08:39)
[2021-07-27] MEDS: Polyethylene Glycol 3350 17 GM Packet PO SCH (08:40)
[2021-07-27] MEDS: valACYclovir 500 MG TAB PER TUBE SCH ×2 (08:40→20:10)
[2021-07-27] MEDS: fentaNYL 100 mcg/hour Patch TD SCH (16:14)
[2021-07-27] MEDS: Lantus 1000 UNITS/10 ML VIAL SC SCH (20:08)
[2021-07-27] MEDS: Atorvastatin Calcium 20 MG TAB PO SCH (20:11)
[2021-07-28] MEDS ORDERED: Sodium Chloride 0.9% 250 ML IV SCH (03:45)
[2021-07-28 04:32] LABS: ALT (SGPT) 194 U/L (8-55); AST (SGOT) 60 U/L (5-34); Albumin 2.5 g/dL (3.4-4.8); Alkaline Phosphatase 53 U/L (40-110); Anion Gap 9 mmol/L (10-20); BUN (Urea Nitrogen) 19 mg/dL (8.4-25.7); Bilirubin, Total 0.6 mg/dL (0.2-1.2); Calc. Creatinine Clearance 138 mL/min (70-130); Calcium 8.2 mg/dL (7.8-10.44); Carbon Dioxide 27 mmol/L (23-31); Chloride 98 mmol/L (98-107); Globulin 2.8 g/dL (2.4-3.5); Glucose 116 mg/dL (80-115); Magnesium 2.2 mg/dL (1.6-2.6); Potassium 3.7 mmol/L (3.5-5.1); Protein, Total 5.3 g/dL (5.8-8.1); Sodium 130 mmol/L (136-145)
[2021-07-28 04:36] LABS: Hemoglobin 7.6 g/dL (14.0-18.0); Mean Corpuscular Hemoglobin 31.1 pg (27.0-31.0); Mean Corpuscular Volume 91.5 fL (78.0-98.0); Mean Platelet Volume 7.6 fL (7.4-10.4); Platelet Count 342 thou/uL (130-400); RBC Distribution Width 12.7 % (11.5-14.5); Red Blood Cell (RBC) Count 2.46 mill/uL (4.70-6.10); White Blood Cell (WBC) Count 10.4 thou/uL (4.8-10.8)
[2021-07-28 05:43] LABS: #Eosinphils 0.2 thou/uL (0.0-0.7); #Monocytes 0.9 thou/uL (0.11-0.59); #Neutrophils 8.3 thou/uL (1.40-6.50); %Basophils 0.1 % (0.0-1.0); %Eosinophils 2.3 % (0.0-10.0); %Lymphocytes 9.3 % (21.0-51.0); %Monocytes 8.4 % (0.0-10.0); %Neutrophils 79.9 % (42.0-75.0); MDiff Complete? YES; Polychromasia SLIGHT = 2-3 cells (100X) (0-2/hpf)
[2021-07-28] MEDS: Mometasone 200 MCG/Formoterol 5 MCG 120 PUFF INHALER INH SCH ×2 (07:17→18:43)
[2021-07-28] MEDS: Albuterol 200 PUFF (6.7GM INHALER) INH SCH ×4 (07:17→23:11)
[2021-07-28] MEDS: Dexamethasone 10 MG/ML VIAL SLOW IVP SCH (09:27)
[2021-07-28] MEDS: Pantoprazole 40 MG VIAL IVP SCH ×2 (09:28→20:25)
[2021-07-28] MEDS: Guaifenesin DM 100-10/5 ML UDCUP PO SCH ×4 (09:28→20:26)
[2021-07-28] MEDS: Enoxaparin Sodium 100 MG/ML SYRINGE SC SCH ×2 (09:29→20:25)
[2021-07-28] MEDS: Polyethylene Glycol 3350 17 GM Packet PO SCH (09:29)
[2021-07-28] MEDS: valACYclovir 500 MG TAB PER TUBE SCH ×2 (09:31→20:24)
[2021-07-28] MEDS: Senokot S 8.6-50 MG TAB PO SCH ×2 (09:31→20:24)
[2021-07-28] MEDS: Zinc Sulfate 220 MG CAP PO SCH (09:32)
[2021-07-28] MEDS: Aspirin Chewable 81 MG TAB PO SCH (09:32)
[2021-07-28] MEDS: Ascorbic Acid 500 mg Chewable Tablet PO SCH (09:32)
[2021-07-28] MEDS: Cholecalciferol 1,000 UNITS (25 MCG) TAB PO SCH (09:40)
[2021-07-28 13:33] LABS: Hemoglobin 8.3 g/dL (14.0-18.0); Platelet Count 387 thou/uL (130-400)
[2021-07-28] MEDS: HumaLOG 300 UNITS/3 ML VIAL SC PRN (15:59)
[2021-07-28] MEDS: Atorvastatin Calcium 20 MG TAB PO SCH (20:24)
[2021-07-28] MEDS: Lantus 1000 UNITS/10 ML VIAL SC SCH (21:49)
[2021-07-28] MEDS: ALPRAZolam 0.5 MG TAB PO PRN (23:50)
[2021-07-29 04:17] LABS: #Basophils 0.1 thou/uL (0.0-0.2); #Eosinphils 0.2 thou/uL (0.0-0.7); #Lymphocytes 1.8 thou/uL (1.20-3.40); #Monocytes 1.1 thou/uL (0.11-0.59); #Neutrophils 10.4 thou/uL (1.40-6.50); %Basophils 0.6 % (0.0-1.0); %Eosinophils 1.8 % (0.0-10.0); %Monocytes 8.3 % (0.0-10.0); %Neutrophils 76.4 % (42.0-75.0); Hemoglobin 8.8 g/dL (14.0-18.0); Mean Corpuscular HGB CONC 33.5 g/dL (32.0-36.0); Mean Corpuscular Hemoglobin 30.7 pg (27.0-31.0); Mean Corpuscular Volume 91.6 fL (78.0-98.0); Mean Platelet Volume 7.3 fL (7.4-10.4); Platelet Count 496 thou/uL (130-400); Red Blood Cell (RBC) Count 2.86 mill/uL (4.70-6.10); White Blood Cell (WBC) Count 13.6 thou/uL (4.8-10.8)
[2021-07-29 04:30] LABS: ALT (SGPT) 185 U/L (8-55); AST (SGOT) 62 U/L (5-34); Albumin 2.8 g/dL (3.4-4.8); Alkaline Phosphatase 59 U/L (40-110); Anion Gap 12 mmol/L (10-20); BUN (Urea Nitrogen) 17 mg/dL (8.4-25.7); Bilirubin, Total 0.8 mg/dL (0.2-1.2); Calc. Creatinine Clearance 138 mL/min (70-130); Calcium 8.6 mg/dL (7.8-10.44); Carbon Dioxide 27 mmol/L (23-31); Chloride 98 mmol/L (98-107); Globulin 3.4 g/dL (2.4-3.5); Glucose 100 mg/dL (80-115); Magnesium 2.2 mg/dL (1.6-2.6); Potassium 4.2 mmol/L (3.5-5.1); Protein, Total 6.2 g/dL (5.8-8.1); Sodium 133 mmol/L (136-145)
[2021-07-29] MEDS: Albuterol 200 PUFF (6.7GM INHALER) INH SCH ×3 (06:55→18:29)
[2021-07-29] MEDS: Mometasone 200 MCG/Formoterol 5 MCG 120 PUFF INHALER INH SCH ×2 (06:56→18:29)
[2021-07-29] MEDS: Iron, Sodium Ferric Gluconate 125 MG in Sodium Chloride 0.9% 100 ML IVPB SCH (09:41)
[2021-07-29] MEDS: Ascorbic Acid 500 mg Chewable Tablet PO SCH (09:56)
[2021-07-29] MEDS: Senokot S 8.6-50 MG TAB PO SCH ×2 (09:56→20:14)
[2021-07-29] MEDS: valACYclovir 500 MG TAB PER TUBE SCH ×2 (09:56→20:14)
[2021-07-29] MEDS: Aspirin Chewable 81 MG TAB PO SCH (09:57)
[2021-07-29] MEDS: Polyethylene Glycol 3350 17 GM Packet PO SCH (09:57)
[2021-07-29] MEDS: Pantoprazole 40 MG VIAL IVP SCH ×2 (09:57→20:14)
[2021-07-29] MEDS: Zinc Sulfate 220 MG CAP PO SCH (09:57)
[2021-07-29] MEDS: Enoxaparin Sodium 100 MG/ML SYRINGE SC SCH ×2 (09:57→20:14)
[2021-07-29] MEDS: Cholecalciferol 1,000 UNITS (25 MCG) TAB PO SCH (09:59)
[2021-07-29] MEDS: Dexamethasone 10 MG/ML VIAL SLOW IVP SCH (09:59)
[2021-07-29] MEDS: Guaifenesin DM 100-10/5 ML UDCUP PO SCH ×4 (10:01→20:13)
[2021-07-29 14:16] LABS: INR-International Normal Ratio 1.1; Prothrombin Time 14.4 sec (12.0-14.7)
[2021-07-29 14:17] LABS: PTT 64.6 sec (22.9-36.1)
[2021-07-29] MEDS: Atorvastatin Calcium 20 MG TAB PO SCH (20:13)
[2021-07-29] MEDS: Lantus 1000 UNITS/10 ML VIAL SC SCH (20:15)
[2021-07-30] MEDS: Albuterol 200 PUFF (6.7GM INHALER) INH SCH ×4 (07:06→18:53)
[2021-07-30] MEDS: Mometasone 200 MCG/Formoterol 5 MCG 120 PUFF INHALER INH SCH ×2 (07:49→18:52)
[2021-07-30 08:00] LABS: #Basophils 0.1 thou/uL (0.0-0.2); #Eosinphils 0.3 thou/uL (0.0-0.7); #Lymphocytes 1.6 thou/uL (1.20-3.40); #Neutrophils 6.1 thou/uL (1.40-6.50); %Eosinophils 3.7 % (0.0-10.0); %Lymphocytes 17.9 % (21.0-51.0); %Monocytes 11.1 % (0.0-10.0); %Neutrophils 66.3 % (42.0-75.0); Hemoglobin 8.3 g/dL (14.0-18.0); Mean Corpuscular HGB CONC 32.5 g/dL (32.0-36.0); Mean Corpuscular Hemoglobin 29.8 pg (27.0-31.0); Mean Corpuscular Volume 91.9 fL (78.0-98.0); Platelet Count 418 thou/uL (130-400); RBC Distribution Width 13.5 % (11.5-14.5); Red Blood Cell (RBC) Count 2.77 mill/uL (4.70-6.10); White Blood Cell (WBC) Count 9.1 thou/uL (4.8-10.8)
[2021-07-30 09:13] LABS: Anion Gap 14 mmol/L (10-20); BUN (Urea Nitrogen) 23 mg/dL (8.4-25.7); Calc. Creatinine Clearance 129 mL/min (70-130); Calcium 8.4 mg/dL (7.8-10.44); Carbon Dioxide 26 mmol/L (23-31); Chloride 98 mmol/L (98-107); Glucose 122 mg/dL (80-115); Potassium 3.5 mmol/L (3.5-5.1); Sodium 134 mmol/L (136-145)
[2021-07-30] MEDS: Dexamethasone 10 MG/ML VIAL SLOW IVP SCH ×2 (10:29→10:49)
[2021-07-30] MEDS: Enoxaparin Sodium 100 MG/ML SYRINGE SC SCH ×2 (10:30→20:32)
[2021-07-30] MEDS: Aspirin Chewable 81 MG TAB PO SCH (10:30)
[2021-07-30] MEDS: Cholecalciferol 1,000 UNITS (25 MCG) TAB PO SCH (10:30)
[2021-07-30] MEDS: Polyethylene Glycol 3350 17 GM Packet PO SCH (10:31)
[2021-07-30] MEDS: Guaifenesin DM 100-10/5 ML UDCUP PO SCH ×4 (10:31→20:30)
[2021-07-30] MEDS: Zinc Sulfate 220 MG CAP PO SCH (10:32)
[2021-07-30] MEDS: Senokot S 8.6-50 MG TAB PO SCH ×2 (10:32→20:33)
[2021-07-30] MEDS: valACYclovir 500 MG TAB PER TUBE SCH ×2 (10:32→20:32)
[2021-07-30] MEDS: Pantoprazole 40 MG VIAL IVP SCH (10:49)
[2021-07-30] MEDS: Ascorbic Acid 500 mg Chewable Tablet PO SCH (10:49)
[2021-07-30] MEDS: Iron, Sodium Ferric Gluconate 125 MG in Sodium Chloride 0.9% 100 ML IVPB SCH (12:13)
[2021-07-30] MEDS: HumaLOG 300 UNITS/3 ML VIAL SC PRN (17:34)
[2021-07-30] MEDS: Lantus 1000 UNITS/10 ML VIAL SC SCH (20:30)
[2021-07-30] MEDS: Atorvastatin Calcium 20 MG TAB PO SCH (20:32)
[2021-07-30] MEDS ORDERED: Melatonin 3 MG TAB PER TUBE SCH (21:00)
[2021-07-31] MEDS: Albuterol 200 PUFF (6.7GM INHALER) INH SCH ×5 (00:16→23:31)
[2021-07-31] MEDS: Mometasone 200 MCG/Formoterol 5 MCG 120 PUFF INHALER INH SCH ×2 (07:08→18:56)
[2021-07-31] MEDS: Cholecalciferol 1,000 UNITS (25 MCG) TAB PO SCH (08:19)
[2021-07-31] MEDS: Zinc Sulfate 220 MG CAP PO SCH (08:19)
[2021-07-31] MEDS: Polyethylene Glycol 3350 17 GM Packet PO SCH (08:19)
[2021-07-31] MEDS: Guaifenesin DM 100-10/5 ML UDCUP PO SCH ×4 (08:19→20:29)
[2021-07-31] MEDS: Dexamethasone 10 MG/ML VIAL SLOW IVP SCH (08:19)
[2021-07-31] MEDS: valACYclovir 500 MG TAB PER TUBE SCH (08:19)
[2021-07-31] MEDS: Aspirin Chewable 81 MG TAB PO SCH (08:19)
[2021-07-31] MEDS: Senokot S 8.6-50 MG TAB PO SCH ×2 (08:20→20:31)
[2021-07-31] MEDS: Enoxaparin Sodium 100 MG/ML SYRINGE SC SCH ×2 (08:20→20:30)
[2021-07-31] MEDS ORDERED: Pantoprazole 40 MG VIAL IVP SCH (09:00)
[2021-07-31] MEDS: Insulin Regular 300 UNITS/3 ML VIAL SC PRN ×2 (11:08→17:05)
[2021-07-31] MEDS: Gabapentin 100 MG CAP PO PRN (16:00)
[2021-07-31] MEDS: traMADol HCl 50 MG TAB PER TUBE PRN ×2 (16:01→22:15)
[2021-07-31] MEDS: Lantus 1000 UNITS/10 ML VIAL SC SCH (20:30)
[2021-07-31] MEDS: Atorvastatin Calcium 20 MG TAB PO SCH (20:30)
[2021-07-31] MEDS: Melatonin 3 MG TAB PER TUBE PRN (20:30)
[2021-08-01] MEDS: Acetaminophen 325 MG TAB PO PRN (01:07)
[2021-08-01] MEDS: traMADol HCl 50 MG TAB PER TUBE PRN (03:48)
[2021-08-01] MEDS: Mometasone 200 MCG/Formoterol 5 MCG 120 PUFF INHALER INH SCH ×2 (06:28→19:01)
[2021-08-01] MEDS: Albuterol 200 PUFF (6.7GM INHALER) INH SCH ×4 (06:31→23:09)
[2021-08-01] MEDS: Aspirin Chewable 81 MG TAB PO SCH (08:44)
[2021-08-01] MEDS: Senokot S 8.6-50 MG TAB PO SCH ×2 (08:44→21:20)
[2021-08-01] MEDS: Cholecalciferol 1,000 UNITS (25 MCG) TAB PO SCH (08:44)
[2021-08-01] MEDS: Zinc Sulfate 220 MG CAP PO SCH (08:44)
[2021-08-01] MEDS: Enoxaparin Sodium 100 MG/ML SYRINGE SC SCH ×2 (08:45→21:20)
[2021-08-01] MEDS: Polyethylene Glycol 3350 17 GM Packet PO SCH (08:45)
[2021-08-01] MEDS: Guaifenesin DM 100-10/5 ML UDCUP PO SCH ×4 (08:45→21:20)
[2021-08-01] MEDS: Dexamethasone 10 MG/ML VIAL SLOW IVP SCH (08:45)
[2021-08-01] MEDS: Lansoprazole 3 MG/ML ORAL SUSPENSION PER TUBE SCH (10:13)
[2021-08-01] MEDS: Insulin Regular 300 UNITS/3 ML VIAL SC PRN (11:05)
[2021-08-01] MEDS ORDERED: Fentanyl 100 MCG/2 ML VIAL ONE (14:13)
[2021-08-01] MEDS ORDERED: Lidocaine 2% PF 100 mg/5 ml Syringe ONE ×2 (14:16)
[2021-08-01] MEDS ORDERED: Lidocaine 1% (PF) 30 ML VIAL ONE (14:17)
[2021-08-01] MEDS: ALPRAZolam 0.5 MG TAB PO PRN (15:30)
[2021-08-01] MEDS: Atorvastatin Calcium 20 MG TAB PO SCH (21:20)
[2021-08-01] MEDS: Lantus 1000 UNITS/10 ML VIAL SC SCH (21:21)
[2021-08-02] MEDS: Polyethylene Glycol 3350 17 GM Packet PO SCH (08:15)
[2021-08-02] MEDS: Zinc Sulfate 220 MG CAP PO SCH (08:15)
[2021-08-02] MEDS: Senokot S 8.6-50 MG TAB PO SCH ×2 (08:15→21:10)
[2021-08-02] MEDS: Dexamethasone 4 mg/ml Vial SLOW IVP SCH (08:15)
[2021-08-02] MEDS: Enoxaparin Sodium 100 MG/ML SYRINGE SC SCH ×2 (08:15→21:10)
[2021-08-02] MEDS: Aspirin Chewable 81 MG TAB PO SCH (08:15)
[2021-08-02] MEDS: Guaifenesin DM 100-10/5 ML UDCUP PO SCH ×4 (08:16→21:10)
[2021-08-02] MEDS: Lansoprazole 3 MG/ML ORAL SUSPENSION PER TUBE SCH (08:16)
[2021-08-02] MEDS: Cholecalciferol 1,000 UNITS (25 MCG) TAB PO SCH (08:17)
[2021-08-02] MEDS: Albuterol 200 PUFF (6.7GM INHALER) INH SCH ×3 (08:36→19:15)
[2021-08-02] MEDS: Mometasone 200 MCG/Formoterol 5 MCG 120 PUFF INHALER INH SCH ×2 (08:38→19:15)
[2021-08-02] MEDS: traMADol HCl 50 MG TAB PER TUBE PRN ×2 (12:30→17:54)
[2021-08-02] MEDS: ALPRAZolam 0.5 MG TAB PO PRN ×2 (12:30→21:30)
[2021-08-02 12:54] VITALS: BP 131/73
[2021-08-02 16:05] VITALS: BMI 28.2
[2021-08-02] MEDS: Acetaminophen 325 MG TAB PO PRN (16:58)
[2021-08-02] MEDS: Gabapentin 100 MG CAP PO PRN (16:59)
[2021-08-02] MEDS: Lantus 1000 UNITS/10 ML VIAL SC SCH (21:05)
[2021-08-02] MEDS: Atorvastatin Calcium 20 MG TAB PO SCH (21:10)
[2021-08-02] MEDS: Melatonin 3 MG TAB PER TUBE PRN (21:29)
[2021-08-03] MEDS: Albuterol 200 PUFF (6.7GM INHALER) INH SCH ×3 (01:57→14:28)
[2021-08-03] MEDS: traMADol HCl 50 MG TAB PER TUBE PRN (02:40)
[2021-08-03] MEDS: Mometasone 200 MCG/Formoterol 5 MCG 120 PUFF INHALER INH SCH (07:02)
[2021-08-03] MEDS: ALPRAZolam 0.5 MG TAB PO PRN (07:27)
[2021-08-03] MEDS: Dexamethasone 4 mg/ml Vial SLOW IVP SCH (10:01)
[2021-08-03] MEDS: Senokot S 8.6-50 MG TAB PO SCH (10:01)
[2021-08-03] MEDS: Aspirin Chewable 81 MG TAB PO SCH (10:02)
[2021-08-03] MEDS: Polyethylene Glycol 3350 17 GM Packet PO SCH (10:02)
[2021-08-03] MEDS: Zinc Sulfate 220 MG CAP PO SCH (10:02)
[2021-08-03] MEDS: Cholecalciferol 1,000 UNITS (25 MCG) TAB PO SCH (10:02)
[2021-08-03] MEDS: Enoxaparin Sodium 100 MG/ML SYRINGE SC SCH (10:02)
[2021-08-03] MEDS: Guaifenesin DM 100-10/5 ML UDCUP PO SCH ×2 (10:02→12:49)
[2021-08-03] MEDS: Lansoprazole 3 MG/ML ORAL SUSPENSION PER TUBE SCH (10:03)
[2021-08-03 14:57] VITALS: TEMP 98.6
== END 2021-08-03 15:58 | DRG 3 ==
LOC: T4-B 11:06 → CCU 07-08 01:51 → IMCU/EMU 07-11 17:33 → CCU 07-16 16:17
PROVIDERS: ADMIT Internal Medicine; ATTEND Hospitalist
PROC: 8E0ZXY6 Isolation (ICD-10-PCS; principal; 2021-06-30)
PROC: XW0DXM6 Introduction of Baricitinib into Mouth and Pharynx, External Approach, New Technology Group 6 (ICD-10-PCS; 2021-07-01)
PROC: 0Y6C0Z1 Detachment at Right Upper Leg, High, Open Approach (ICD-10-PCS; 2021-07-16)
PROC: 5A1955Z Respiratory Ventilation, Greater than 96 Consecutive Hours (ICD-10-PCS; 2021-07-16)
PROC: 0B110F4 Bypass Trachea to Cutaneous with Tracheostomy Device, Open Approach (ICD-10-PCS; 2021-07-22)
PROC: 0DH63UZ Insertion of Feeding Device into Stomach, Percutaneous Approach (ICD-10-PCS; 2021-07-26)
PROC: 0BC18ZZ Extirpation of Matter from Trachea, Via Natural or Artificial Opening Endoscopic (ICD-10-PCS; 2021-08-01)
PROC: 0BC68ZZ Extirpation of Matter from Right Lower Lobe Bronchus, Via Natural or Artificial Opening Endoscopic (ICD-10-PCS; 2021-08-01)
DX: A41.89 Other specified sepsis (principal); U07.1 COVID-19; J12.82 Pneumonia due to coronavirus disease 2019; J80 Acute respiratory distress syndrome; E87.1 Hypo-osmolality and hyponatremia; K55.1 Chronic vascular disorders of intestine; D68.8 Other specified coagulation defects; B37.0 Candidal stomatitis; I50.32 Chronic diastolic (congestive) heart failure; E11.52 Type 2 diabetes mellitus with diabetic peripheral angiopathy with gangrene; I70.261 Atherosclerosis of native arteries of extremities with gangrene, right leg; I74.09 Other arterial embolism and thrombosis of abdominal aorta; I74.5 Embolism and thrombosis of iliac artery; K22.10 Ulcer of esophagus without bleeding; D62 Acute posthemorrhagic anemia; G72.81 Critical illness myopathy; E78.5 Hyperlipidemia, unspecified; F32.A Depression, unspecified; K76.0 Fatty (change of) liver, not elsewhere classified; E11.65 Type 2 diabetes mellitus with hyperglycemia; D72.829 Elevated white blood cell count, unspecified; T38.0X5A Adverse effect of glucocorticoids and synthetic analogues, initial encounter; E66.9 Obesity, unspecified; E05.80 Other thyrotoxicosis without thyrotoxic crisis or storm; I11.0 Hypertensive heart disease with heart failure; E87.5 Hyperkalemia; R13.12 Dysphagia, oropharyngeal phase; K59.00 Constipation, unspecified; Z79.84 Long term (current) use of oral hypoglycemic drugs; Z79.82 Long term (current) use of aspirin; Z79.899 Other long term (current) drug therapy; Z85.46 Personal history of malignant neoplasm of prostate; S22.32XD Fracture of one rib, left side, subsequent encounter for fracture with routine healing; Z91.81 History of falling; R31.0 Gross hematuria; Z82.49 Family history of ischemic heart disease and other diseases of the circulatory system; Z68.33 Body mass index [BMI] 33.0-33.9, adult
CPT/HCPCS: 31624; 36415; 36416; 36600; 70450; 71045; 74018; 75635; 80048; 80053; 80076; 80202; 81001; 82248; 82533; 82550; 82805; 83036; 83735; 83930; 83935; 84100; 84145; 84300; 84436; 84443; 84540; 84550; 85014; 85018; 85025; 85027; 85049; 85379; 85610; 85730; 86140; 86803; 86850; 86900; 86901; 87040; 87070; 87077; 87081; 87086; 87149; 87186; 87205; 87389; 87449; 87633; 87798; 87899; 88307; 93005; 93010; 93306; 94002; 94003; 94640; 94660; C1776; C9113; J0456; J0610; J0696; J1100; J1450; J1644; J1650; J1815; J1940; J2001; J2060; J2185; J2248; J2270; J2370; J2405; J2704; J2916; J3010; J3370; J3490; J7030; J7050; Q0163

== ENCOUNTER 2021-08-04 10:15 | Emergency (ER) | payer MEDICARE ==
[2021-08-04] MEDS ORDERED: Morphine 4 MG/ML VIAL ONE (11:04)
[2021-08-04] MEDS ORDERED: Ondansetron PF 4 MG/2 ML Vial ONE (11:13)
[2021-08-04 11:14] LABS: #Eosinphils 0.1 thou/uL (0.0-0.7); #Lymphocytes 1.3 thou/uL (1.20-3.40); #Monocytes 0.9 thou/uL (0.11-0.59); #Neutrophils 7.4 thou/uL (1.40-6.50); %Basophils 0.5 % (0.0-1.0); %Eosinophils 0.9 % (0.0-10.0); %Lymphocytes 13.6 % (21.0-51.0); %Monocytes 9.3 % (0.0-10.0); %Neutrophils 75.7 % (42.0-75.0); Hemoglobin 9.3 g/dL (14.0-18.0); Mean Corpuscular HGB CONC 32.6 g/dL (32.0-36.0); Mean Corpuscular Hemoglobin 30.6 pg (27.0-31.0); Platelet Count 276 thou/uL (130-400); Red Blood Cell (RBC) Count 3.03 mill/uL (4.70-6.10); White Blood Cell (WBC) Count 9.8 thou/uL (4.8-10.8)
[2021-08-04] MEDS ORDERED: Sodium Chloride For Inhalation 0.9% 3 ML NEB ONE (11:32)
[2021-08-04 11:35] LABS: ALT (SGPT) 102 U/L (8-55); AST (SGOT) 42 U/L (5-34); Albumin 2.9 g/dL (3.4-4.8); Alkaline Phosphatase 63 U/L (40-110); Anion Gap 16 mmol/L (10-20); BUN (Urea Nitrogen) 18 mg/dL (8.4-25.7); Calc. Creatinine Clearance 0 mL/min (70-130); Calcium 8.9 mg/dL (7.8-10.44); Carbon Dioxide 25 mmol/L (23-31); Chloride 95 mmol/L (98-107); Globulin 3.1 g/dL (2.4-3.5); Glucose 147 mg/dL (80-115); Potassium 4.4 mmol/L (3.5-5.1); Sodium 132 mmol/L (136-145)
== END 2021-08-04 15:25 | disposition home or self-care (01) ==
LOC: ERS 10:15
DX: R09.02 Hypoxemia (principal); R09.3 Abnormal sputum; E78.5 Hyperlipidemia, unspecified; E11.9 Type 2 diabetes mellitus without complications
CPT/HCPCS: 36415; 71045; 83605; 84484; 93005; 93010; 96374; 96375; J2270; J2405

== ENCOUNTER 2021-08-05 15:41 | Emergency (ER) | payer MEDICARE | END 2021-08-05 18:27 | disposition home or self-care (01) | LOC: ERS 15:41 | DX: J95.01 Hemorrhage from tracheostomy stoma (principal); E78.5 Hyperlipidemia, unspecified; E11.9 Type 2 diabetes mellitus without complications | CPT/HCPCS: 99284 ==

== ENCOUNTER 2021-08-07 11:06 | Emergency (ER) | payer MEDICARE | END 2021-08-07 13:39 | disposition home or self-care (01) | LOC: ERS 11:06 | DX: J95.01 Hemorrhage from tracheostomy stoma (principal); E78.5 Hyperlipidemia, unspecified; E11.9 Type 2 diabetes mellitus without complications; Z85.46 Personal history of malignant neoplasm of prostate; Z87.19 Personal history of other diseases of the digestive system; Z79.899 Other long term (current) drug therapy; Z79.82 Long term (current) use of aspirin; Z79.891 Long term (current) use of opiate analgesic; Z79.4 Long term (current) use of insulin | CPT/HCPCS: 99283 ==